=== PATIENT | male | born 1950 | race Caucasian/White ===

== ENCOUNTER 2017-11-12 15:30 | Outpatient (RCR) | payer MEDICARE, BC, SELFPAY ==
--- NOTE | 2017-10-16 16:31 | PTTR_ITS ---
DATE: 10/16/17 SUBJECTIVE: Pt reports that he feels more off balance today and feels he is leaning to the right. OBJECTIVE: Therapeutic procedures (10624o7). * X Provided skilled instruction in proper exercise performance: Pt completed dynamic balance activities with CGAx1, functional sit to stands, wobble board, LE strengthening, glute strengthening, and cardio on the Nu Step. Pt was able to tolerate a slight increase in his program today. Pt was noticeably more off balance today and was leaning more to the right during his session. Direct treatment time: 35 Total treatment time: 45
--- NOTE | 2017-10-20 16:40 | PTTR_ITS ---
DATE: 10/20/17 SUBJECTIVE: Pt reports that he has been sitting a lot today. OBJECTIVE: Therapeutic procedures (01982b5). * X Provided skilled instruction in proper exercise performance: Pt completed dynamic balance activities with CGAx1/min assist x1. Pt then completed open and closed chain LE strengthening, functional sit to stands with the 9# bar, step ups, wobble board, and Nu Step for 10 min for cardio. Pt was able to tolerate a slight increase in his program today. Direct treatment time: 35 Total treatment time: 35
--- NOTE | 2017-10-23 16:34 | PTTR_ITS ---
DATE: 10/23/17 SUBJECTIVE: I am doing okay for the most part. OBJECTIVE: Therapeutic procedures ([id number]). * X HEP review: Technique review and corrective demonstration * X See flow sheet: Added back in rolling techniques, rowing with side step overs, and half knee biceps curls. * X Provided skilled instruction in proper exercise performance: [] * X Provided skilled manual cues to facilitate proper muscle recruitment and/ or movement pattern: [] * X Other: Patient focusing on stabilization and balance effort today. He required significant Direct treatment time: 50 minutes of direct patient care.
--- NOTE | 2017-10-29 16:55 | PTTR_ITS ---
DATE: 10/29/17 SUBJECTIVE: I am sorry I am late but I was held up at the Doctor. OBJECTIVE: Therapeutic procedures (65602o5). * X HEP review: Technique review and corrective modification where appropriate. * X See flow sheet: Completed all activities from a shortened list due to time. * X Provided skilled instruction in proper exercise performance: [] * X Provided skilled manual cues to facilitate proper muscle recruitment and/ or movement pattern: [] * X Other: Patient tolerated treatment well Direct treatment time: 30 minutes of direct patient care.
--- NOTE | 2017-11-04 16:47 | PN_ITS ---
DATE: 11/04/17 REFERRING: Tiara Pollock NP REFERRING PROVIDER DIAGNOSIS:: S/p back surgery PHYSICAL THERAPY DIAGNOSIS: Difficulty walking, Difficulty changing positions of the body. REPORTING PERIOD (for progress note and discharge note only): 09/22/17 thru SUBJECTIVE: I am doing okay for the most part. OBJECTIVE: Treatment: Therapeutic procedures ([id number]). * X HEP review: Technique review and corrective modification where appropriate * X See flow sheet: Patient completed randomized corrective activity with instruction * X Provided skilled instruction in proper exercise performance: [] * X Provided skilled manual cues to facilitate proper muscle recruitment and/ or movement pattern: [] * X Other: Tolerated treatment well. Treatment time: 45 minutes of direct patient care. ASSESSMENT: X Patient requires continued skilled Physical Therapy intervention to remediate the above functional limitations to return to: * X Premorbid level of function. * X Full functional mobility. * X Return to work demands. * XImprove quality of life. G-Codes (add modifier after appropriate code): Patient's primary functional limitation is in the category of: * [] Mobility - walking and moving around : [id number] Present status determined by (SM or other justification): Improved fitness as measured by 45 minute activity tolerance with corrective instruction and minimal rest intervals. Projected goal: * X Expected to return to premorbid level of function. * X As expected, based on age-related deficits. * X Secondary to comorbidities. [id number] Goal progression: (copy/paste from IE or last PN). 1. Patient able to walk 1500 feet by 6MWT, Goal not met but progressing. 2. Patient able to perform 30 sit to stands before fatigue. Patient is tolerating up to 2 sets of 10 repetitions with 9# bar shoulder press for multisegmental movement. Goal not met but progressing. PLAN: Patient to continue treatment, 2x per week, for 5 weeks, adjusting frequency of visits per patient symptoms and response to treatment. Treatment to include: * X Manual therapy - [id number][] (indicate any further detail here): [] * X Therapeutic exercise - 60020Y-[]. * X Neuro Re-ed - 23210J-[]. Thank you for you continued support of this patient! cc. Tiara Pollock NP
--- NOTE | 2017-11-06 16:00 | PTTR_ITS ---
DATE: 11/10/17 Therapeutic procedures ([id number]). Today's session consisted of NuStep for some cardiovascular exercise. He then completed balance activities per flow sheet as well as UE/LE strengthening recorded on flow sheet. The patient also worked on rolling on the alexi for 5 mins, working on lunges. He was somewhat fatigued and I did require Min A for loss of balance a couple times throughout his program, mostly with lunges and holding onto the 30# side stepping. Direct treatment time: 30 mins Total treatment time: 45 mins for unskilled care for NuStep activity /dl
--- NOTE | 2017-11-10 11:26 | PTTR_ITS ---
DATE: 11/10/17 OBJECTIVE: Therapeutic procedures (97630o3). Todays session consisted of pt completing LE strengthening activities, glute strengthening, working on lowering as well as lunges and cardiovascular exercise. Completing step ups for 1 minutes and then the Nustep. Please see flow sheet for specifics. PT also completed heel toe balance activities. Direct treatment time: 35 minutes Total treatment time: 45 minutes
--- NOTE | 2017-11-12 16:42 | PTTR_ITS ---
DATE: 11/12/17 SUBJECTIVE: I am doing okay for the most part. Making gradual improvement. OBJECTIVE: Therapeutic procedures (11900e3). * X HEP review: TEchnique review and corrective modification where appropriate. * X See flow sheet: [] * X Provided skilled instruction in proper exercise performance: [] * X Provided skilled manual cues to facilitate proper muscle recruitment and/ or movement pattern: [] * X Other: Patient notably fatigued at the end of the treatment session. He completed a combination of guided exercises for strength, stabilization, and proprioceptive control. Direct treatment time: 40 minutes of direct patient care.
== END 2017-11-14 23:59 | disposition home or self-care (01) ==
LOC: PT 15:30
PROVIDERS: PCP Nurse Practitioner Family; Referring Provider Nurse Practitioner; Visit Provider Nurse Practitioner
DX: Z47.89 Encounter for other orthopedic aftercare (principal); Z98.1 Arthrodesis status
CPT/HCPCS: 97110; G8978

== ENCOUNTER 2018-01-01 16:15 | Outpatient (CLI) | payer MEDICARE, BC, SELFPAY ==
[2018-01-01 17:50] LABS: ALT 40 U/L (12-78); AST 34 U/L (15-37); Albumin 3.9 g/dL (3.4-5.0); Alkaline Phosphatase 113 U/L (46-116); Anion Gap 8.5 mmol/L (3-11); BUN 21 mg/dL (7-18); Bilirubin, Total 0.3 mg/dL (0.2-1.0); CO2 27.5 mmol/L (21.0-32.0); CREATININE 1.42 mg/dL (0.70-1.30); Chloride 102 mmol/L (98-107); Estimated GFR 49.58 (mL/min/1.73m2); Glucose 340 mg/dL (70-100); Potassium 5.2 mmol/L (3.5-5.1); Sodium 138 mmol/L (136-145); Total Protein 7.4 g/dL (6.4-8.2)
== END 2018-01-01 16:35 ==
PROVIDERS: PCP Nurse Practitioner Family; Visit Provider Nurse Practitioner Family
DX: E11.8 Type 2 diabetes mellitus with unspecified complications (principal); Z79.4 Long term (current) use of insulin
CPT/HCPCS: 36415; 80053

== ENCOUNTER 2018-03-24 10:36 | Outpatient (REF) | payer MEDICARE, BC, SELFPAY | END 2018-03-24 10:56 | LOC: LBN 10:36 | PROVIDERS: PCP Nurse Practitioner Family; Visit Provider Family Medicine | DX: K11.21 Acute sialoadenitis (principal) | CPT/HCPCS: 87449 ==

== ENCOUNTER 2018-03-30 12:49 | Outpatient (CLI) | payer MEDICARE, BC, SELFPAY ==
[2018-03-30 13:23] LABS: HCT 21.4 % (40.0-50.0); HGB 7.3 g/dL (13.5-17.5); Mean Corp. HGB Concentration 34.1 g/dL (32.0-36.0); Mean Corpuscular Hemoglobin 34.9 pg (27.0-33.0); Mean Corpuscular Volume 102.4 fL (80-95); Mean Platelet Volume 9.1 fL (8.0-11.0); Platelet Count 123 x1000/uL (130-400); RBC 2.09 m/cumm (4.50-6.00); RBC Distribution Width 19.5 % (11.8-14.1)
--- NOTE | 2018-03-30 13:35 | DI.RAD_ITS ---
SYMPTOM/DIAGNOSIS: COUGH AND WEAKNESS, R05 PA AND LATERAL CHEST: There are no prior comparison exams. The heart is enlarged. The aorta appears normal in diameter. There are mildly increased interstitial markings throughout. No focal infiltrate, effusion or pulmonary edema is seen. IMPRESSION: Cardiomegaly and interstitial changes. No acute abnormality.
[2018-03-30 14:14] LABS: White Blood Cell Count 45.67 k/cumm (4.4-10.8)
[2018-03-30 14:20] LABS: Absolute Lymphocyte Count 2.74 k/cumm (1.2-3.4); Absolute Monocyte Count 9.59 k/cumm (0.11-0.7); Absolute Neutrophil Count 1.37 k/cumm (1.2-6.7)
[2018-03-30 14:22] LABS: Diff Comment Manual Differential; Other Cells 70
[2018-03-30 14:23] LABS: Macrocytosis 1+
[2018-04-01 16:28] LABS: Index Value 0.13 (0.00-0.79); Mumps Ab, IgG Negative; Mumps Ab, IgM Negative (Negative)
== END 2018-03-30 13:09 ==
PROVIDERS: PCP Nurse Practitioner Family; Visit Provider Family Medicine
DX: R05 Cough (principal); K11.21 Acute sialoadenitis; I51.7 Cardiomegaly; R91.8 Other nonspecific abnormal finding of lung field
CPT/HCPCS: 36415; 83735; 86735; 71046; 85025

== ENCOUNTER 2018-05-24 13:25 | Emergency (ER) | payer MEDICARE, BC, SELFPAY ==
[2018-05-24] VITALS (56 sets, daily range): BP systolic 161–190; BP diastolic 63–97; PULSE 57–79; RESP 9–35; TEMP 36.6–36.9; O2SAT 92–100
--- NOTE | 2018-05-24 14:19 | DI.CT_ITS ---
SYMPTOM/DIAGNOSIS: INTERMITTENT VERTIGO NONCONTRAST HEAD CT: Comparison is made with 03/21/13. There is mild global cerebral atrophy consistent with the patient's age. There are areas of decreased attenuation in the white matter consistent with small vessel ischemic disease. No acute infarct, hemorrhage, midline shift or mass effect is identified. The ventricles are intact. The basilar cisterns are patent. The visualized paranasal sinuses are clear. The mastoid air cells are well pneumatized. The calvarium is intact. IMPRESSION: No acute intracranial process.
--- NOTE | 2018-05-24 14:19 | W.ED.GENAD ---
Discharge Plan Disposition Patient Disposition: [facility] Condition: Serious Discharge Details Chief Complaint: Dizzy/Sync Clinical Impression: Vertigo, Hypomagnesemia Reason For Visit: TONY Primary Care Provider: Sapna Ornelas ED Provider: Camden Peterson Home Meds and New Rx's Prescriptions: No Action triamcinolone acetonide 0.1 % ointment 1 applic TP BID Qty: 30 RF: 0 Aquaphor Healing 41 % ointment 1 applic TP Q8H Qty: 99 RF: 1 sertraline 100 mg tablet 100 mg PO DAILY RF: 0 metoprolol succinate 100 mg tablet extended release 24 hr 200 mg PO DAILY RF: 0 aspirin [Aspir-81] 81 MG tablet,delayed release (DR/EC) 81 mg PO DAILY RF: 0 mometasone 45 GM cream 1 bruno Topical PRN PRNQty: 45 RF: 0 cholecalciferol (vitamin D3) 1,000 UNIT tablet 1,000 unit PO BID RF: 0 naproxen sodium [Aleve] 220 MG capsule 220 mg PO Q12H PRN RF: 0 loperamide 2 MG tablet 2 mg PO QID PRNQty: 30 RF: 1 cyanocobalamin (vitamin B-12) 1,000 MCG/1 ML solution 1,000 mcg IJ 4w Qty: 3 RF: 3 omeprazole 40 MG capsule,delayed release(DR/EC) 40 mg PO DAILY Qty: 90 RF: 3 probenecid 500 MG tablet 500 mg PO BID Qty: 180 RF: 3 lisinopril 40 MG tablet 40 mg PO DAILY Qty: 90 RF: 3 furosemide 20 mg tablet 10 mg PO DAILY AM Qty: 90 RF: 3 acyclovir 400 mg tablet 400 mg PO BID RF: 0 Levemir FlexTouch U-100 Insuln 100 unit/mL (3 mL) insulin pen See Patient Comments Sub-Q DIRECTED RF: 3 pen needle, diabetic [Lite Touch Insulin Pen [place]] 31 gauge x 3/16 needle .ROUTE .MEDSUPPLY Qty: 30 RF: 0 atorvastatin 10 mg tablet 10 mg PO QHS RF: 0 ascorbic acid (vitamin C) [Vitamin C] 1,000 mg tablet extended release 1,000 mg PO BID RF: 0 enoxaparin 120 mg/0.8 mL syringe 120 mg SC HS RF: 0 Humalog KwikPen Insulin 100 unit/mL insulin pen See Rx Instructions SC AC Qty: 15 RF: 0 Eliquis 5 mg tablet 5 mg PO BID RF: 0 lancets [FreeStyle Lancets] 28 gauge misc 1 ea Miscellaneous TID Qty: 400 RF: 3 FreeStyle Lite Strips strip 1 ea Miscellaneous TID Qty: 400 RF: 3 gabapentin 300 mg Capsule 900 mg PO .QHS RF: 0 gabapentin 300 mg Capsule 300 mg PO DAILY RF: 0 Discharge Data Discharge Date/Time-TO BE ENTERED AT DEPARTURE: 05/24/18 20:17 Medical Decision Making 15:00 --59-year-old male with history of leukemia, recent cardiac arrest while receiving chemotherapy, here with intermittent vertigo while lying at rest since early this morning. Patient has had multiple, brief, severe episodes of room spinning vertigo today. I am concerned given the intermittent nature of these and the fact that they are occurring while lying flat at rest. CT reviewed and interpreted by me: Sinus rhythm 64 bpm, occasional ventricular beat, T wave inversion noted in lead III, subtle ST depressions are appreciated lead I, aVL, V5 and V6. No old in system for comparison. Given intermittentand not currently having constant vertigo unfortunately HINTS exam not helpful. CT head interpreted by radiology as negative. Plan to speak with neurology at [facility] [place] transfer [place]. Called [facility] [place] call back[place] -- recieved a call from [facility] [place] noting that Dr. Canela would be calling shortly. 16:25 -- Reviewed call back from [facility] [place] Canela (neurology) and discussed care presentation and diagnostics: she agrees to accept in transfer. Not able to accept in transfer. -- Spoke with Dr. Iqbal (neuro at [facility]), discussed ED presentation and course including diagnostic results and my concerns, he requests CTA head and neck and if neg for occlusion, he will accept for MRI and further workup. 19:08 --CTA of the head and neck interpreted by radiology: IMPRESSION: 1. Mild segmental stenosis at the proximal left internal carotid artery by NASCET criteria. 2. Subacute bilateral anterior second and third rib fractures with some callus formation. IMPRESSION: Negative CTA Head exam. I spoke with ED physician at [facility] who agrees with transfer. Patient reassessed and is remained stable. Patient consents to transfer. --Patient hypertensive prior to transfer. He is due for his nighttime dose of metoprolol 200 mg controlled release. I will provide this prior to transfer. HPI General Mode of arrival: ambulatory. Date/Time Provider Initiated Documentation: 05/24/18 13:52. Limitations to Documentation: no limitations. Information obtained by: patient. HPI Narrative: 67-year-old male with multiple medical problems including leukemia status post recent chemo with plan for additional chemo, recent cardiac arrest last month while hospitalized receiving chemotherapy, presents with chief complaint of dizziness. Patient notes that around 2 AM this morning he developed sudden onset of spinning sensation while at rest. This occurred twice. Since initial episode he has had multiple additional episodes (approximately 8 times in total). These episodes last 1-2 minutes and then resolved. His sensation of lateral spinning and then intermittently a sinking feeling. Symptoms are severe at times. More recently they have been less severe. He also notes associated mild frontal headache now rated 1/10. No associated weakness or numbness. No visual changes. No speech changes. Related Data Home Medications Medication Instructions Recorded Confirmed aspirin [Aspir-81] 81 mg PO DAILY tab 11/13/12 05/24/18 cholecalciferol (vitamin D3) 1,000 unit PO BID 11/13/12 05/24/18 mometasone 1 bruno TOPICAL PRN PRN #45 gm 11/13/12 05/24/18 naproxen sodium [Aleve] 220 mg PO Q12H PRN 09/23/14 05/24/18 loperamide 2 mg PO QID PRN #30 tab-cap 07/21/15 05/24/18 cyanocobalamin (vitamin B-12) 1,000 mcg IJ 4w #3 vial 12/31/16 05/24/18 omeprazole 40 mg PO DAILY #90 tab-cap 11/10/17 05/24/18 probenecid 500 mg PO BID #180 tab-cap 11/10/17 05/24/18 lisinopril 40 mg PO DAILY #90 tab-cap 11/13/17 05/24/18 triamcinolone acetonide 0.1 % 1 applic TP BID #30 gm 11/28/17 05/24/18 topical ointment white petrolatum 41 % topical 1 applic TP Q8H #99 gm 11/28/17 05/24/18 ointment furosemide 20 mg tablet 10 mg PO DAILY AM #90 tab-cap 01/02/18 05/24/18 acyclovir 400 mg tablet 400 mg PO BID tab 05/11/18 05/24/18 ascorbic acid (vitamin C) ER 1,000 1,000 mg PO BID tab 05/11/18 05/24/18 mg tablet,extended release atorvastatin 10 mg tablet 10 mg PO QHS 05/11/18 05/24/18 insulin detemir (U-100) 100 See Rx Instructions SUB-Q 05/11/18 05/24/18 unit/mL (3 mL) subcutaneous pen DIRECTED ml pen needle, diabetic 31 gauge x #30 each 05/11/18 05/15/1805/30 enoxaparin 120 mg/0.8 mL 120 mg SC HS ml 05/15/18 05/24/18 subcutaneous syringe insulin lispro (U- 100) 100 See Rx Instructions SC AC #15 ml 05/15/18 05/24/18 unit/mL subcutaneous pen metoprolol succinate ER 100 mg 200 mg PO DAILY tab 05/15/18 05/24/18 tablet,extended release 24 hr sertraline 100 mg tablet 100 mg PO DAILY 05/15/18 05/24/18 apixaban 5 mg tablet 5 mg PO BID 05/18/18 05/24/18 gabapentin 300 mg PO DAILY 05/24/18 05/24/18 gabapentin 900 mg PO .QHS 05/24/18 05/24/18 blood sugar diagnostic strips #400 strip 05/25/18 lancets 28 gauge #400 each 05/25/18 Previous Rx's Medication Instructions Recorded cyanocobalamin (vitamin B-12) 1,000 mcg IJ 4w #3 vial 12/31/16 omeprazole 40 mg PO DAILY #90 tab-cap 11/10/17 probenecid 500 mg PO BID #180 tab-cap 11/10/17 lisinopril 40 mg PO DAILY #90 tab-cap 11/13/17 triamcinolone acetonide 0.1 % 1 applic TP BID #30 gm 11/28/17 topical ointment white petrolatum 41 % topical 1 applic TP Q8H #99 gm 11/28/17 ointment furosemide 20 mg tablet 10 mg PO DAILY AM #90 tab-cap 01/02/18 insulin lispro (U- 100) 100 See Rx Instructions SC AC #15 ml 05/15/18 unit/mL subcutaneous pen blood sugar diagnostic strips #400 strip 05/25/18 lancets 28 gauge #400 each 05/25/18 Allergies Allergy/AdvReac Type Severity Reaction Status Date / Time oxycodone HCl [From Percocet] Allergy Intermediate hives Verified 05/24/18 19:16 sulfamethoxazole Allergy Intermediate hives Verified 05/24/18 19:16 [From Bactrim] trimethoprim [From Bactrim] Allergy Intermediate hives Verified 05/24/18 19:16 hydromorphone HCl Allergy Unknown rash Verified 05/24/18 19:16 [From Dilaudid] amoxicillin trihydrate AdvReac Intermediate C diff Verified 05/24/18 19:16 [From Augmentin] colitis codeine AdvReac Intermediate heart Verified 05/24/18 19:16 racing, N,V potassium clavulanate AdvReac Intermediate C diff Verified 05/24/18 19:16 [From Augmentin] colitis amiloride AdvReac Unknown increased Verified 05/24/18 19:16 K and decreased NA General Stated Complaint: Dizzy/Sync WES: 3 Review of Systems Review of Systems All systems reviewed & are unremarkable except as noted in HPI and below Cardiovascular Denies chest pain Neurologic Reports as per HPI PFSH Medical History Type 2 diabetes mellitus with complication, with long-term current use of insulin (Chronic) Spinal stenosis of lumbar region (Chronic 11/13/12) Sensorineural hearing loss, asymmetrical (Chronic 11/13/12) Mixed anxiety and depressive disorder (Chronic 11/13/12) Mitral valve insufficiency (Chronic 01/15/16) Microalbuminuria (Chronic 09/23/14) Idiopathic gout (Chronic 12/16/14) Hyperlipidemia (Chronic 11/13/12) Gait abnormality (Chronic 11/13/12) Essential hypertension (Chronic 11/13/12) Disorder of vitamin B12 (Chronic 01/14/13) Disease related peripheral neuropathy (Chronic 01/14/13) Cervical spinal stenosis (Chronic 02/08/15) Cervical radiculopathy (Chronic 01/27/15) Benign neoplasm of colon (Inactive 04/04/14) HTN (hypertension) Spinal stenosis Type 2 diabetes mellitus Surgical History H/O arthrodesis (Acute 02/15/15) H/O laminectomy (Acute Unknown) H/O vein stripping (Acute ~07/2006) S/P ACL repair (Acute ~02/1992) Anterior Lumbar interbody fusion (07/16/17) Colonoscopy - IV Sedation (04/04/14) Family History Mother Dementia Father Heart disease Gout Tongue cancer Grandmother Heart disease Other Diabetes Rheumatoid arthritis Social History Smoking/Tobacco Use Status: Never Alcohol Intake: current Alcohol Intake frequency: 0-2 drinks per day Drug use: Never Substance use type: does not use Adopted: No Pets and animals: No Seatbelt use: always Working smoke detector in home: Yes Carbon monox detector in home: Yes Exam Const General: cooperative and no acute distress HENMT Head: normocephalic and atraumatic Ears: external ears normal and TM's normal bilaterally Mouth: moist mucous membranes Throat: posterior oropharynx normal Eyes Conjunctivae: normal conjunctivae Sclera: normal sclerae EOM: EOM intact bilaterally Neck Neck: trachea midline and supple Resp Auscultation: clear to auscultation bilaterally, no rales, no rhonchi and no wheezes Cardio Jugular venous pressure: no JVD Rate: regular rate and not tachycardic Rhythm: regular rhythm GI Palpation: soft, not firm, no guarding, no masses, not rigid and nontender Skin General skin exam: no rashes or lesions noted Neuro General: alert, awake, oriented x3 and tone normal Cranial Nerves: CN's II-XI intact bilaterally and PERRL Cognition: normal cognition Speech: speech normal Gait: normal gait Motor: muscle tone normal throughout and strength 5/5 throughout Sensory Exam: no sensory deficits noted Coordination: [id number] test normal, Romberg test normal and rapid alternating movement UE normal Extrem General: no edema Psych Appearance: grossly normal Mental Status: mental status grossly normal Speech and Movement: speech and movement normal Course Vital Signs Respiratory Rate 15 05/24/18 13:25 Pulse Oximetry 100 05/24/18 13:25 Temperature 36.6 C 05/24/18 13:29 Temperature Source Temporal Artery Scan 05/24/18 14:02 Pulse 68 03/10/19 14:02 Pulse 69 05/24/18 13:50 Respiratory Rate 24 05/24/18 14:02 Respiratory Effort Non-Labored 05/24/18 13:41 Blood Pressure 172/90 H 05/24/18 14:02 Blood Pressure Mean 111 05/24/18 13:46 Blood Pressure Position Supine 05/24/18 13:29 Pulse Oximetry 94 L 05/24/18 14:02 Oxygen Delivery Method Room Air 05/24/18 14:02 Oxygen Flow Rate 0 05/24/18 14:02 Pain Level 0 05/24/18 13:29
[2018-05-24 14:39] LABS: Abs Immature Grans 0.03 k/cumm (0.0-0.09); Absolute Basophil Count 0.02 k/cumm (0.0-0.2); Absolute Eosinophil Count 0.04 k/cumm (0.0-0.7); Absolute Lymphocyte Count 1.11 k/cumm (1.2-3.4); Absolute Monocyte Count 0.65 k/cumm (0.11-0.7); Absolute Neutrophil Count 2.99 k/cumm (1.2-6.7); Basophils % 0.4; Eosinophils % 0.8; HCT 32.6 % (40.0-50.0); Immature Grans % 0.6; Lymphocytes % 22.9; Mean Corp. HGB Concentration 33.7 g/dL (32.0-36.0); Mean Corpuscular Volume 91.8 fL (80-95); Monocytes % 13.4; Neutrophils % 61.9; Platelet Count 444 x1000/uL (130-400); RBC 3.55 m/cumm (4.50-6.00); RBC Distribution Width 17.8 % (11.8-14.1); White Blood Cell Count 4.84 k/cumm (4.4-10.8)
[2018-05-24 14:49] LABS: Prothrombin Time 10.1 sec (9.3-11.0)
--- NOTE | 2018-05-24 14:51 | DI.VRAD_ITS ---
Addendum created by Nina Garcia MD on 05/24/2018 2:53:33 PM EDT Findings were discussed with Camden Pepe on 05/24/2018 2:53 PM EDT Initial report created on 05/24/2018 2:50:57 PM EDT EXAM: CT Head Without Contrast EXAM DATE/TIME: 05/24/2018 2:20 PM CLINICAL HISTORY: 67 years old, male; Signs and symptoms; Other: Intermittent vertigo TECHNIQUE: Axial computed tomography images of the head/brain without contrast. All CT scans at this facility use at least one of these dose optimization techniques: automated exposure control; mA and/or kV adjustment per patient size (includes targeted exams where dose is matched to clinical indication); or iterative reconstruction. Coronal and sagittal reformatted images were created and reviewed. STROKE PROTOCOL was implemented. COMPARISON: CT HEAD AND CSPINE W/O CONTRAST 03/21/2013 8:54 AM FINDINGS: Brain: Central and cortical brain atrophy evident, appropriate for patient age. There is nonspecific periventricular low attenuation, likely microangiopathic disease. No acute intracranial hemorrhage. Ventricles: Normal. No ventriculomegaly. Bones/joints: Unremarkable. No acute fracture. Sinuses: Visualized sinuses are unremarkable. No acute sinusitis. Mastoid air cells: Visualized mastoid air cells are unremarkable. No mastoid effusion. Soft tissues: Unremarkable. IMPRESSION: No acute intracranial abnormality. ASSESSMENT: ASPECTS ([facility] Stroke Program Early CT Score) is 10. Dictated and Authenticated by: Nina Garcia MD. Ordering:NAINA Hannah MD
[2018-05-24 14:54] LABS: ALT 32 U/L (12-78); AST 20 U/L (15-37); Albumin 3.5 g/dL (3.4-5.0); Alkaline Phosphatase 185 U/L (46-116); Anion Gap 6.3 mmol/L (3-11); BUN 12 mg/dL (7-18); Bilirubin, Total 0.4 mg/dL (0.2-1.0); CO2 31.7 mmol/L (21.0-32.0); CREATININE 1.04 mg/dL (0.70-1.30); Calcium 9.2 mg/dL (8.5-10.1); Chloride 101 mmol/L (98-107); Glucose 145 mg/dL (70-100); Magnesium 1.5 mg/dL (1.8-2.4); Potassium 3.8 mmol/L (3.5-5.1); Sodium 139 mmol/L (136-145); Total Protein 7.9 g/dL (6.4-8.2); Troponin I 0.03 ng/mL (0.00-0.06)
--- NOTE | 2018-05-24 14:56 | NUR.NOTE ---
Nursing Note: Pt awake and alert. a&o. reports waves of occasional dizziness where room is spinning. no symptoms at this time. perrla. moving all extremities. NSR on cardiac monitoring. hypertensive 172/90. skin warm and dry. no n/v/d or diaphoresis. call light in reach. will continue to monitor, no further needs at this time.
--- NOTE | 2018-05-24 15:00 | ED.GENADUL_ITS ---
Discharge Plan Disposition Patient Disposition: [facility] Condition: Serious Discharge Details Chief Complaint: Dizzy/Sync Clinical Impression: Vertigo, Hypomagnesemia Reason For Visit: TONY Primary Care Provider: Sapna Ornelas ED Provider: Camedn Peterson Home Meds and New Rx's Prescriptions: No Action triamcinolone acetonide 0.1 % ointment 1 applic TP BID Qty: 30 RF: 0 Aquaphor Healing 41 % ointment 1 applic TP Q8H Qty: 99 RF: 1 sertraline 100 mg tablet 100 mg PO DAILY RF: 0 metoprolol succinate 100 mg tablet extended release 24 hr 200 mg PO DAILY RF: 0 aspirin [Aspir-81] 81 MG tablet,delayed release (DR/EC) 81 mg PO DAILY RF: 0 mometasone 45 GM cream 1 bruno Topical PRN PRNQty: 45 RF: 0 cholecalciferol (vitamin D3) 1,000 UNIT tablet 1,000 unit PO BID RF: 0 naproxen sodium [Aleve] 220 MG capsule 220 mg PO Q12H PRN RF: 0 loperamide 2 MG tablet 2 mg PO QID PRNQty: 30 RF: 1 cyanocobalamin (vitamin B-12) 1,000 MCG/1 ML solution 1,000 mcg IJ 4w Qty: 3 RF: 3 omeprazole 40 MG capsule,delayed release(DR/EC) 40 mg PO DAILY Qty: 90 RF: 3 probenecid 500 MG tablet 500 mg PO BID Qty: 180 RF: 3 lisinopril 40 MG tablet 40 mg PO DAILY Qty: 90 RF: 3 furosemide 20 mg tablet 10 mg PO DAILY AM Qty: 90 RF: 3 acyclovir 400 mg tablet 400 mg PO BID RF: 0 Levemir FlexTouch U-100 Insuln 100 unit/mL (3 mL) insulin pen See Patient Comments Sub-Q DIRECTED RF: 3 pen needle, diabetic [Lite Touch Insulin Pen [place]] 31 gauge x 3/16 needle .ROUTE .MEDSUPPLY Qty: 30 RF: 0 atorvastatin 10 mg tablet 10 mg PO QHS RF: 0 ascorbic acid (vitamin C) [Vitamin C] 1,000 mg tablet extended release 1,000 mg PO BID RF: 0 enoxaparin 120 mg/0.8 mL syringe 120 mg SC HS RF: 0 Humalog KwikPen Insulin 100 unit/mL insulin pen See Rx Instructions SC AC Qty: 15 RF: 0 Eliquis 5 mg tablet 5 mg PO BID RF: 0 lancets [FreeStyle Lancets] 28 gauge misc 1 ea Miscellaneous TID Qty: 400 RF: 3 FreeStyle Lite Strips strip 1 ea Miscellaneous TID Qty: 400 RF: 3 gabapentin 300 mg Capsule 900 mg PO .QHS RF: 0 gabapentin 300 mg Capsule 300 mg PO DAILY RF: 0 Discharge Data Discharge Date/Time-TO BE ENTERED AT DEPARTURE: 05/24/18 20:17 Medical Decision Making 15:00 --59-year-old male with history of leukemia, recent cardiac arrest while receiving chemotherapy, here with intermittent vertigo while lying at rest since early this morning. Patient has had multiple, brief, severe episodes of room spinning vertigo today. I am concerned given the intermittent nature of these and the fact that they are occurring while lying flat at rest. CT reviewed and interpreted by me: Sinus rhythm 64 bpm, occasional ventricular beat, T wave inversion noted in lead III, subtle ST depressions are appreciated lead I, aVL, V5 and V6. No old in system for comparison. Given intermittentand not currently having constant vertigo unfortunately HINTS exam not helpful. CT head interpreted by radiology as negative. Plan to speak with neurology at [facility] to request transfer for MRI. Called [facility] - awaiting call back. -- recieved a call from [facility] transfer center noting that Dr. Canela would be calling shortly. 16:25 -- Reviewed call back from [facility] Dr. Canela (neurology) and discussed care presentation and diagnostics: she agrees to accept in transfer. Not able to accept in transfer. -- Spoke with Dr. Iqbal (neuro at [facility]), discussed ED presentation and course including diagnostic results and my concerns, he requests CTA head and neck and if neg for occlusion, he will accept for MRI and further workup. 19:08 --CTA of the head and neck interpreted by radiology: IMPRESSION: 1. Mild segmental stenosis at the proximal left internal carotid artery by NASCET criteria. 2. Subacute bilateral anterior second and third rib fractures with some callus formation. IMPRESSION: Negative CTA Head exam. I spoke with ED physician at [facility] who agrees with transfer. Patient reassessed and is remained stable. Patient consents to transfer. --Patient hypertensive prior to transfer. He is due for his nighttime dose of metoprolol 200 mg controlled release. I will provide this prior to transfer. HPI General Mode of arrival: ambulatory . Date/Time Provider Initiated Documentation: 05/24/18 13:52 . Limitations to Documentation: no limitations . Information obtained by: patient . HPI Narrative: 67-year-old male with multiple medical problems including leukemia status post recent chemo with plan for additional chemo, recent cardiac arrest last month while hospitalized receiving chemotherapy, presents with chief complaint of dizziness. Patient notes that around 2 AM this morning he developed sudden onset of spinning sensation while at rest. This occurred twice. Since initial episode he has had multiple additional episodes (approximately 8 times in total). These episodes last 1-2 minutes and then resolved. His sensation of lateral spinning and then intermittently a sinking feeling. Symptoms are severe at times. More recently they have been less severe. He also notes associated mild frontal headache now rated 1/10. No associated weakness or numbness. No visual changes. No speech changes. Related Data Home Medications Medication Instructions Recorded Confirmed aspirin [Aspir-81] 81 mg PO DAILY tab 11/13/12 05/24/18 cholecalciferol (vitamin D3) 1,000 unit PO BID 11/13/12 05/24/18 mometasone 1 bruno TOPICAL PRN PRN #45 gm 11/13/12 05/24/18 naproxen sodium [Aleve] 220 mg PO Q12H PRN 09/23/14 05/24/18 loperamide 2 mg PO QID PRN #30 tab-cap 07/21/15 05/24/18 cyanocobalamin (vitamin B-12) 1,000 mcg IJ 4w #3 vial 12/31/16 05/24/18 omeprazole 40 mg PO DAILY #90 tab-cap 11/10/17 05/24/18 probenecid 500 mg PO BID #180 tab-cap 11/10/17 05/24/18 lisinopril 40 mg PO DAILY #90 tab-cap 11/13/17 05/24/18 triamcinolone acetonide 0.1 % 1 applic TP BID #30 gm 11/28/17 05/24/18 topical ointment white petrolatum 41 % topical 1 applic TP Q8H #99 gm 11/28/17 05/24/18 ointment furosemide 20 mg tablet 10 mg PO DAILY AM #90 tab-cap 01/02/18 05/24/18 acyclovir 400 mg tablet 400 mg PO BID tab 05/11/18 05/24/18 ascorbic acid (vitamin C) ER 1,000 1,000 mg PO BID tab 05/11/18 05/24/18 mg tablet,extended release atorvastatin 10 mg tablet 10 mg PO QHS 05/11/18 05/24/18 insulin detemir (U-100) 100 See Rx Instructions SUB-Q 05/11/18 05/24/18 unit/mL (3 mL) subcutaneous pen DIRECTED ml pen needle, diabetic 31 gauge x #30 each 05/11/18 05/15/1805/30 enoxaparin 120 mg/0.8 mL 120 mg SC HS ml 05/15/18 05/24/18 subcutaneous syringe insulin lispro (U- 100) 100 See Rx Instructions SC AC #15 ml 05/15/18 05/24/18 unit/mL subcutaneous pen metoprolol succinate ER 100 mg 200 mg PO DAILY tab 05/15/18 05/24/18 tablet,extended release 24 hr sertraline 100 mg tablet 100 mg PO DAILY 05/15/18 05/24/18 apixaban 5 mg tablet 5 mg PO BID 05/18/18 05/24/18 gabapentin 300 mg PO DAILY 05/24/18 05/24/18 gabapentin 900 mg PO .QHS 05/24/18 05/24/18 blood sugar diagnostic strips #400 strip 05/25/18 lancets 28 gauge #400 each 05/25/18 Previous Rx's Medication Instructions Recorded cyanocobalamin (vitamin B-12) 1,000 mcg IJ 4w #3 vial 12/31/16 omeprazole 40 mg PO DAILY #90 tab-cap 11/10/17 probenecid 500 mg PO BID #180 tab-cap 11/10/17 lisinopril 40 mg PO DAILY #90 tab-cap 11/13/17 triamcinolone acetonide 0.1 % 1 applic TP BID #30 gm 11/28/17 topical ointment white petrolatum 41 % topical 1 applic TP Q8H #99 gm 11/28/17 ointment furosemide 20 mg tablet 10 mg PO DAILY AM #90 tab-cap 01/02/18 insulin lispro (U- 100) 100 See Rx Instructions SC AC #15 ml 05/15/18 unit/mL subcutaneous pen blood sugar diagnostic strips #400 strip 05/25/18 lancets 28 gauge #400 each 05/25/18 Allergies Allergy/AdvReac Type Severity Reaction Status Date / Time oxycodone HCl [From Percocet] Allergy Intermediate hives Verified 05/24/18 19:16 sulfamethoxazole Allergy Intermediate hives Verified 05/24/18 19:16 [From Bactrim] trimethoprim [From Bactrim] Allergy Intermediate hives Verified 05/24/18 19:16 hydromorphone HCl Allergy Unknown rash Verified 05/24/18 19:16 [From Dilaudid] amoxicillin trihydrate AdvReac Intermediate C diff Verified 05/24/18 19:16 [From Augmentin] colitis codeine AdvReac Intermediate heart Verified 05/24/18 19:16 racing, N,V potassium clavulanate AdvReac Intermediate C diff Verified 05/24/18 19:16 [From Augmentin] colitis amiloride AdvReac Unknown increased Verified 05/24/18 19:16 K and decreased NA General Stated Complaint: Dizzy/Sync WES: 3 Review of Systems Review of Systems All systems reviewed & are unremarkable except as noted in HPI and below Cardiovascular Denies chest pain Neurologic Reports as per HPI PFSH Medical History Type 2 diabetes mellitus with complication, with long-term current use of insulin (Chronic) Spinal stenosis of lumbar region (Chronic 11/13/12) Sensorineural hearing loss, asymmetrical (Chronic 11/13/12) Mixed anxiety and depressive disorder (Chronic 11/13/12) Mitral valve insufficiency (Chronic 01/15/16) Microalbuminuria (Chronic 09/23/14) Idiopathic gout (Chronic 12/16/14) Hyperlipidemia (Chronic 11/13/12) Gait abnormality (Chronic 11/13/12) Essential hypertension (Chronic 11/13/12) Disorder of vitamin B12 (Chronic 01/14/13) Disease related peripheral neuropathy (Chronic 01/14/13) Cervical spinal stenosis (Chronic 02/08/15) Cervical radiculopathy (Chronic 01/27/15) Benign neoplasm of colon (Inactive 04/04/14) HTN (hypertension) Spinal stenosis Type 2 diabetes mellitus Surgical History H/O arthrodesis (Acute 02/15/15) H/O laminectomy (Acute Unknown) H/O vein stripping (Acute ~07/2006) S/P ACL repair (Acute ~02/1992) Anterior Lumbar interbody fusion (07/16/17) Colonoscopy - IV Sedation (04/04/14) Family History Mother Dementia Father Heart disease Gout Tongue cancer Grandmother Heart disease Other Diabetes Rheumatoid arthritis Social History Smoking/Tobacco Use Status: Never Alcohol Intake: current Alcohol Intake frequency: 0-2 drinks per day Drug use: Never Substance use type: does not use Adopted: No Pets and animals: No Seatbelt use: always Working smoke detector in home: Yes Carbon monox detector in home: Yes Exam Const General: cooperative and no acute distress HENMT Head: normocephalic and atraumatic Ears: external ears normal and TM's normal bilaterally Mouth: moist mucous membranes Throat: posterior oropharynx normal Eyes Conjunctivae: normal conjunctivae Sclera: normal sclerae EOM: EOM intact bilaterally Neck Neck: trachea midline and supple Resp Auscultation: clear to auscultation bilaterally, no rales, no rhonchi and no wheezes Cardio Jugular venous pressure: no JVD Rate: regular rate and not tachycardic Rhythm: regular rhythm GI Palpation: soft, not firm, no guarding, no masses, not rigid and nontender Skin General skin exam: no rashes or lesions noted Neuro General: alert, awake, oriented x3 and tone normal Cranial Nerves: CN's II-XI intact bilaterally and PERRL Cognition: normal cognition Speech: speech normal Gait: normal gait Motor: muscle tone normal throughout and strength 5/5 throughout Sensory Exam: no sensory deficits noted Coordination: [id number] test normal, Romberg test normal and rapid alternating movement UE normal Extrem General: no edema Psych Appearance: grossly normal Mental Status: mental status grossly normal Speech and Movement: speech and movement normal Course Vital Signs Respiratory Rate 15 05/24/18 13:25 Pulse Oximetry 100 05/24/18 13:25 Temperature 36.6 C 05/24/18 13:29 Temperature Source Temporal Artery Scan 05/24/18 14:02 Pulse 68 03/10/19 14:02 Pulse 69 05/24/18 13:50 Respiratory Rate 24 05/24/18 14:02 Respiratory Effort Non-Labored 05/24/18 13:41 Blood Pressure 172/90 H 05/24/18 14:02 Blood Pressure Mean 111 05/24/18 13:46 Blood Pressure Position Supine 05/24/18 13:29 Pulse Oximetry 94 L 05/24/18 14:02 Oxygen Delivery Method Room Air 05/24/18 14:02 Oxygen Flow Rate 0 05/24/18 14:02 Pain Level 0 05/24/18 13:29
--- NOTE | 2018-05-24 15:56 | NUR.NOTE ---
Nursing Note: Report given to Laura GONZALEZ
[2018-05-24] MEDS: Lactated Ringers 1,000 ML 1000 ML IV (16:03)
[2018-05-24] MEDS: MAGNESIUM SULFATE 1 GM/100 ML BAG IVPB (16:03)
--- NOTE | 2018-05-24 17:04 | DI.CT_ITS ---
SYMPTOM/DIAGNOSIS: VERTIGO, CONCERN FOR POSTERIOR CIRCULATION CVA CTA OF HEAD AND NECK: CT angiography was performed with multi slice acquisition and multi planar and 3D reconstruction. HEAD: There is mild calcification of the cavernous sinus internal carotid arteries bilaterally but no significant stenosis. No evidence of occlusion or aneurysm. The internal cerebral arteries are unremarkable without evidence of occlusion or aneurysm. No significant stenosis is seen. The middle cerebral arteries are unremarkable without evidence of occlusion or aneurysm. No significant stenosis is seen. The posterior cerebral arteries are unremarkable without evidence of occlusion or aneurysm. No significant stenosis is present. The distal vertebral arteries and basilar artery are unremarkable without evidence of occlusion, dissection, aneurysm or significant stenosis. There is a dominant right vertebral artery. IMPRESSION: Negative CTA of the brain. NECK: The common carotid arteries are unremarkable without evidence of dissection, occlusion or significant stenosis. The external carotid arteries are unremarkable without evidence of occlusion or significant stenosis. There is calcification seen at the origin of the right internal carotid artery but no significant stenosis is seen. No occlusion or dissection is present. There is calcification along the proximal left internal carotid artery with minimal narrowing (less than 20%). No occlusion or dissection is identified. The vertebral arteries are unremarkable without evidence of dissection, occlusion or significant stenosis. The right vertebral artery is dominant. Post surgical changes are seen in the spine extending from C 3 through T 1 with laminectomies and interpedicular screws. There are bilateral subacute fractures of the anterior aspects of the second and third ribs bilaterally. There has developed some callous formation about the fractures. IMPRESSION: 1. No significant stenosis in the cervical carotid artery system. Mild stenosis is seen in the proximal left internal carotid artery (less than 20%). 2. Subacute bilateral fractures of the anterior aspects of the second and third ribs.
[2018-05-24] MEDS: Omnipaque 350 MG/ML 100 ML BTL IJ (18:04)
[2018-05-24] MEDS: Normal Saline Flush 10 ML SYR IVP (18:05)
--- NOTE | 2018-05-24 18:53 | DI.VRAD_ITS ---
EXAM: CT Angiography Head With Contrast EXAM DATE/TIME: 05/24/2018 5:06 PM CLINICAL HISTORY: 67 years old, male; Signs and symptoms; Other: Vertigo, concern for posterior circulation CVA; Prior surgery; Surgery date: 6+ months TECHNIQUE: Axial computed tomographic angiography images of the head with intravenous contrast using CT angiography protocol. All CT scans at this facility use at least one of these dose optimization techniques: automated exposure control; mA and/or kV adjustment per patient size (includes targeted exams where dose is matched to clinical indication); or iterative reconstruction. Coronal reformatted images were created and reviewed. MIP reconstructed images were created and reviewed. CONTRAST: Contrast Material: 85 ml of omnipaque 350; Contrast Route: IV COMPARISON: CT HEAD FOR STROKE PROTOCOL 05/24/2018 1:32 PM FINDINGS: Right internal carotid artery: Unremarkable. Intracranial segment is patent with no significant stenosis. No aneurysm. Right anterior cerebral artery: Unremarkable. No occlusion or significant stenosis. No aneurysm. Right middle cerebral artery: Unremarkable. No occlusion or significant stenosis. No aneurysm. Right posterior cerebral artery: Unremarkable. No occlusion or significant stenosis. No aneurysm. Right vertebral artery: Unremarkable. No occlusion or significant stenosis. No aneurysm. Left internal carotid artery: Unremarkable. Intracranial segment is patent with no significant stenosis. No aneurysm. Left anterior cerebral artery: Unremarkable. No occlusion or significant stenosis. No aneurysm. Left middle cerebral artery: Unremarkable. No occlusion or significant stenosis. No aneurysm. Left posterior cerebral artery: Unremarkable. No occlusion or significant stenosis. No aneurysm. Left vertebral artery: Unremarkable. No occlusion or significant stenosis. No aneurysm. Basilar artery: Unremarkable. No occlusion or significant stenosis. No aneurysm. IMPRESSION: Negative CTA Head exam. EXAM: CT Angiography Neck With Contrast EXAM DATE/TIME: 05/24/2018 5:06 PM CLINICAL HISTORY: 67 years old, male; Signs and symptoms; Other: Vertigo, concern for posterior circulation CVA; Prior surgery; Surgery date: 6+ months TECHNIQUE: Axial computed tomographic angiography images of the neck with intravenous contrast using CT angiography protocol. All CT scans at this facility use at least one of these dose optimization techniques: automated exposure control; mA and/or kV adjustment per patient size (includes targeted exams where dose is matched to clinical indication); or iterative reconstruction. Coronal reformatted images were created and reviewed. MIP reconstructed images were created and reviewed. CONTRAST: Contrast Material: 85 ml of Omnipaque 350; Contrast Route: IV COMPARISON: CT HEAD FOR STROKE PROTOCOL 05/24/2018 1:32 PM FINDINGS: VASCULATURE: Right common carotid artery: Unremarkable. No significant stenosis. No dissection or occlusion. Right internal carotid artery: Mild calcifications at the origin of the right internal carotid artery without stenosis. No occlusion. No dissection. Right external carotid artery: Unremarkable. No occlusion or significant stenosis. 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 Left common carotid artery: Unremarkable. No significant stenosis. No dissection or occlusion. Left internal carotid artery: Calcification along the proximal left internal carotid artery and produces 20% segmental stenosis. No occlusion. No dissection. Left external carotid artery: Unremarkable. No occlusion or significant stenosis. Left vertebral artery: Unremarkable. No significant stenosis. No dissection or occlusion. NECK: Bones/joints: No cervical spine fracture or dislocation. Extensive postsurgical changes of the cervical spine with posterior of mechanical fusion of C3-T1 with interpedicular screws and laminectomies. Subacute bilateral anterior second and third rib fractures with some callus formation. Soft tissues: Unremarkable. No significant soft tissue swelling. IMPRESSION: 1. Mild segmental stenosis at the proximal left internal carotid artery by NASCET criteria. 2. Subacute bilateral anterior second and third rib fractures with some callus formation. COMMENT: Reference per NASCET criteria for degree of stenosis: Mild: less than 50% stenosis. Moderate: 50-69% stenosis. Severe: 70-94% stenosis. Near occlusion: 95-99% stenosis. Dictated and Authenticated by: Christina Piedra MD. Ordering:NAINA Hannah MD
--- NOTE | 2018-05-24 19:01 | NUR.NOTE ---
patient has been resting comfortably.
[2018-05-24] MEDS: Metoprolol CR 100 MG TABCR PO ×2 (20:30→20:31)
== END 2018-05-24 20:17 ==
PROVIDERS: Emergency Provider Student in an Organized Health Care Education/Training Program; PCP Nurse Practitioner Family
DX: R42 Dizziness and giddiness (principal); E83.42 Hypomagnesemia; I10 Essential (primary) hypertension; E11.9 Type 2 diabetes mellitus without complications; Z79.4 Long term (current) use of insulin
CPT/HCPCS: 36415; 36416; 70496; 70498; 80053; 82962; 93005; 96361; 96365; 99285; 70450; 83735; 84484; 85025; 85610; 93010; J3475; J3490

== ENCOUNTER 2018-06-11 12:30 | Outpatient (RCR) | payer MEDICARE, BC, SELFPAY ==
[2018-06-04] MEDS: Normal Saline Flush 10 ML SYR IVP (10:53)
[2018-06-04 10:58] LABS: Absolute Basophil Count 0.02 k/cumm (0.0-0.2); Absolute Eosinophil Count 0.01 k/cumm (0.0-0.7); Absolute Lymphocyte Count 0.23 k/cumm (1.2-3.4); Absolute Neutrophil Count 0.75 k/cumm (1.2-6.7); HCT 28.9 % (40.0-50.0); HGB 9.3 g/dL (13.5-17.5); Lymphocytes % 22.8; Mean Corp. HGB Concentration 32.2 g/dL (32.0-36.0); Mean Corpuscular Hemoglobin 30.5 pg (27.0-33.0); Mean Corpuscular Volume 94.8 fL (80-95); Mean Platelet Volume 9.3 fL (8.0-11.0); Neutrophils % 74.2; RBC 3.05 m/cumm (4.50-6.00)
[2018-06-04 11:27] LABS: White Blood Cell Count 1.01 k/cumm (4.4-10.8)
[2018-06-04 11:28] LABS: Platelet Count 214 x1000/uL (130-400)
[2018-06-04 11:29] LABS: Diff Comment Agrees w/ Instrument
[2018-06-04 11:30] LABS: Anisocytosis 2+; Hypochromasia 1+
[2018-06-08] MEDS: Normal Saline Flush 10 ML SYR IVP (10:15)
[2018-06-08 10:44] LABS: HCT 26.8 % (40.0-50.0); HGB 9.1 g/dL (13.5-17.5); Mean Corpuscular Hemoglobin 31.2 pg (27.0-33.0); Mean Corpuscular Volume 91.8 fL (80-95); Mean Platelet Volume 8.9 fL (8.0-11.0); RBC 2.92 m/cumm (4.50-6.00); RBC Distribution Width 15.6 % (11.8-14.1)
[2018-06-08 11:28] LABS: White Blood Cell Count 0.34 k/cumm (4.4-10.8)
[2018-06-08 11:29] LABS: Platelet Count 42 x1000/uL (130-400)
[2018-06-08 11:30] LABS: Absolute Lymphocyte Count 0.33 k/cumm (1.2-3.4); Absolute Neutrophil Count 0.01 k/cumm (1.2-6.7)
[2018-06-08 11:31] LABS: Anisocytosis 1+
[2018-06-08 11:32] LABS: Diff Comment Manual Differential
[2018-06-11] VITALS (10 sets, daily range): BP systolic 118–156; BP diastolic 59–72; PULSE 59–98; RESP 18; TEMP 36–36.7; O2SAT 98–100
[2018-06-11] MEDS: Normal Saline Flush 10 ML SYR IVP ×2 (10:00→17:04)
[2018-06-11 10:37] LABS: HCT 22.7 % (40.0-50.0); HGB 7.8 g/dL (13.5-17.5); Mean Corp. HGB Concentration 34.4 g/dL (32.0-36.0); Mean Corpuscular Hemoglobin 31.1 pg (27.0-33.0); Mean Corpuscular Volume 90.4 fL (80-95); RBC 2.51 m/cumm (4.50-6.00); RBC Distribution Width 15.2 % (11.8-14.1)
[2018-06-11 11:44] LABS: Platelet Count 4 x1000/uL (130-400)
== END 2018-06-14 23:59 | disposition home or self-care (01) ==
LOC: INF 12:30
PROVIDERS: PCP Nurse Practitioner Family; Visit Provider Nurse Practitioner Adult Health
DX: C92.00 Acute myeloblastic leukemia, not having achieved remission (principal); Z45.2 Encounter for adjustment and management of vascular access device
CPT/HCPCS: 36415; 36430; 36592; 85027; 86850; 86900; 86901; 86920; 85025; P9016; P9035

== ENCOUNTER 2018-06-11 12:47 | Outpatient (RCR) | payer MEDICARE, BC, SELFPAY | END 2018-06-14 23:59 | disposition home or self-care (01) | LOC: INF 12:47 | PROVIDERS: PCP Nurse Practitioner Family; Visit Provider Internal Medicine | DX: R69 Illness, unspecified (principal) ==

== ENCOUNTER 2018-06-14 12:47 | Outpatient (RCR) | payer MEDICARE, BC, SELFPAY | END 2018-06-14 23:59 | disposition home or self-care (01) | LOC: INF 12:47 | PROVIDERS: PCP Nurse Practitioner Family; Visit Provider Nurse Practitioner Adult Health | DX: R69 Illness, unspecified (principal) ==

== ENCOUNTER 2018-06-14 16:12 | Emergency (ER) | payer MEDICARE, BC, SELFPAY ==
[2018-06-14] VITALS (36 sets, daily range): BP systolic 135–182; BP diastolic 63–91; PULSE 75–84; RESP 13–21; TEMP 37.7–38.4; O2SAT 93–99
[2018-06-14 16:36] LABS: Lactate-non-spesis 1.6 mmol/l (0.6-1.4)
[2018-06-14 16:43] LABS: Absolute Lymphocyte Count 0.18 k/cumm (1.2-3.4); Absolute Monocyte Count 0.08 k/cumm (0.11-0.7); HCT 28.6 % (40.0-50.0); HGB 9.9 g/dL (13.5-17.5); Lymphocytes % 69.2; Mean Corp. HGB Concentration 34.6 g/dL (32.0-36.0); Mean Corpuscular Hemoglobin 30.4 pg (27.0-33.0); Mean Corpuscular Volume 87.7 fL (80-95); Mean Platelet Volume 10.8 fL (8.0-11.0); Monocytes % 30.8; RBC 3.26 m/cumm (4.50-6.00); RBC Distribution Width 14.3 % (11.8-14.1)
[2018-06-14] MEDS: Acetaminophen 500 MG TAB 1000 MG PO (16:49)
[2018-06-14] MEDS: Normal Saline Flush 10 ML SYR IVP (16:50)
--- NOTE | 2018-06-14 16:50 | ED.GENADUL_ITS ---
Discharge Plan Disposition Patient Disposition: [facility] Condition: Stable Discharge Details Chief Complaint: GenMedical Clinical Impression: Neutropenic fever, Pneumonia, History of acute myeloid leukemia, Status post chemotherapy Primary Care Provider: Sapna Ornelas ED Provider: Zaida Johnson Home Meds and New Rx's Prescriptions: No Action triamcinolone acetonide 0.1 % ointment 1 applic TP BID Qty: 30 RF: 0 Aquaphor Healing 41 % ointment 1 applic TP Q8H Qty: 99 RF: 1 sertraline 100 mg tablet 100 mg PO DAILY RF: 0 metoprolol succinate 100 mg tablet extended release 24 hr 200 mg PO DAILY RF: 0 aspirin [Aspir-81] 81 MG tablet,delayed release (DR/EC) 81 mg PO DAILY RF: 0 mometasone 45 GM cream 1 bruno Topical PRN PRNQty: 45 RF: 0 cholecalciferol (vitamin D3) 1,000 UNIT tablet 1,000 unit PO BID RF: 0 naproxen sodium [Aleve] 220 MG capsule 220 mg PO Q12H PRN RF: 0 loperamide 2 MG tablet 2 mg PO QID PRNQty: 30 RF: 1 cyanocobalamin (vitamin B-12) 1,000 MCG/1 ML solution 1,000 mcg IJ 4w Qty: 3 RF: 3 omeprazole 40 MG capsule,delayed release(DR/EC) 40 mg PO DAILY Qty: 90 RF: 3 probenecid 500 MG tablet 500 mg PO BID Qty: 180 RF: 3 lisinopril 40 MG tablet 40 mg PO DAILY Qty: 90 RF: 3 furosemide 20 mg tablet 10 mg PO DAILY AM Qty: 90 RF: 3 acyclovir 400 mg tablet 400 mg PO BID RF: 0 Levemir FlexTouch U-100 Insuln 100 unit/mL (3 mL) insulin pen See Patient Comments Sub-Q DIRECTED RF: 3 pen needle, diabetic [Lite Touch Insulin Pen [place]] 31 gauge x 3/16 needle .ROUTE .MEDSUPPLY Qty: 30 RF: 0 atorvastatin 10 mg tablet 10 mg PO QHS RF: 0 ascorbic acid (vitamin C) [Vitamin C] 1,000 mg tablet extended release 1,000 mg PO BID RF: 0 enoxaparin 120 mg/0.8 mL syringe 120 mg SC HS RF: 0 Humalog KwikPen Insulin 100 unit/mL insulin pen See Rx Instructions SC AC Qty: 15 RF: 0 Eliquis 5 mg tablet 5 mg PO BID RF: 0 lancets [FreeStyle Lancets] 28 gauge misc 1 ea Miscellaneous TID Qty: 400 RF: 3 FreeStyle Lite Strips strip 1 ea Miscellaneous TID Qty: 400 RF: 3 gabapentin 300 mg Capsule 900 mg PO .QHS RF: 0 gabapentin 300 mg Capsule 300 mg PO DAILY RF: 0 fluconazole 50 mg Tablet 50 mg PO DAILY RF: 0 Medical Decision Making 67-year-old male with a history of diabetes, AML, cardiac arrest due to chemotherapy who presents with fever since this morning. Also complaining of URI symptoms for the past 2-3 days. Temp 101.1. Remainder vitals within normal limits. Normal ENT exam. Lungs clear to auscultation. Abdomen soft and nontender. Due to patient's history, will place an IV, labs, urinalysis, chest x-ray, lactate and blood cultures. We will also obtain a rapid strep and influenza. Will give a dose of Tylenol and bolus IV fluids. EKG notes a rate of 79, sinus and no acute ST findings. 1714 --labs and imaging reviewed. 0.26. Hemoglobin 9.9. Platelets 11. Absolute neutrophils 0. ANC 0 indicative of severe neutropenia. Sodium 130. Glucose 433. Bicarb 26. Anion gap 11.2. Lactate 1.6. Magnesium 1. 3. Troponin negative. Lipase negative. Chest x-ray notes bilateral opacities consistent with pneumonia. Rapid strep and influenza negative. 1739 --discussed with [facility] [place] hematology Dr. Ruiz -accepts patient for transfer for neutropenic fever. Would like a dose of cefepime 2 g IV. Patient is agreeable with transfer. Patient feels better after Tylenol. Medical Records Medical records reviewed: Yes I reviewed the patient's medical records. Imaging Data Radiologic Study: Radiologist's impression: XR Chest, 2 Views EXAM DATE/TIME: 06/14/2018 4:24 PM FINDINGS: Tubes, catheters and devices: Right PICC in place with the tip at the proximal SVC. Lungs: See Pleural Space Finding. Pleural space: There is some left sided pleural based opacities. Similar opacities noted in the right midlung. Suspect healing rib fractures. Heart/Mediastinum: Cardiomegaly. Bones/joints: Status post lower cervical fusion. IMPRESSION: Bilateral lung and pleural opacities. Suspect healing rib fractures. If there is no history for trauma, consider CT followup. Lab Data Lab results reviewed: Yes I reviewed the patient's lab results. ECG Data Attestation: I personally reviewed and interpreted this ECG (s) as follows: Interpretation: Rate of 79, sinus, no acute ST elevation or depression. QTc 426. QRS 94. HPI General Mode of arrival: wheelchair . Date/Time Provider Initiated Documentation: 06/14/18 16:19 . Limitations to Documentation: no limitations . Information obtained by: patient . HPI Narrative: Patient is a 67-year-old male with a history of AML diagnosed in March 2018 with a history of cardiac arrest status post chemotherapy, diabetes, and hypertension who presents with fever since this morning. T-max 100.7. He did not take any Tylenol. Patient states he started his first chemo on May 25 for 5 days. States his second chemo session is June 25. He admits to runny nose, and sore throat for the past 2-3 days as well as bilateral jaw pain starting today. He denies any coughing or shortness of breath, vomiting, diarrhea, abdominal pain or chest pain. He states his glucose has also been high today in the 200s. He states he called his oncologist Dr. Ruiz at [facility] [place] and was advised to come to the ER for evaluation. Related Data Home Medications Medication Instructions Recorded Confirmed aspirin [Aspir-81] 81 mg PO DAILY tab 11/13/12 05/24/18 cholecalciferol (vitamin D3) 1,000 unit PO BID 11/13/12 06/14/18 mometasone 1 bruno TOPICAL PRN PRN #45 gm 11/13/12 06/14/18 naproxen sodium [Aleve] 220 mg PO Q12H PRN 09/23/14 06/14/18 loperamide 2 mg PO QID PRN #30 tab-cap 07/21/15 06/14/18 cyanocobalamin (vitamin B-12) 1,000 mcg IJ 4w #3 vial 12/31/16 06/14/18 omeprazole 40 mg PO DAILY #90 tab-cap 11/10/17 06/14/18 probenecid 500 mg PO BID #180 tab-cap 11/10/17 06/14/18 lisinopril 40 mg PO DAILY #90 tab-cap 11/13/17 06/14/18 triamcinolone acetonide 0.1 % 1 applic TP BID #30 gm 11/28/17 06/14/18 topical ointment white petrolatum 41 % topical 1 applic TP Q8H #99 gm 11/28/17 06/14/18 ointment furosemide 20 mg tablet 10 mg PO DAILY AM #90 tab-cap 01/02/18 06/14/18 acyclovir 400 mg tablet 400 mg PO BID tab 05/11/18 06/14/18 ascorbic acid (vitamin C) ER 1,000 1,000 mg PO BID tab 05/11/18 06/14/18 mg tablet,extended release atorvastatin 10 mg tablet 10 mg PO QHS 05/11/18 06/14/18 insulin detemir (U-100) 100 See Rx Instructions SUB-Q 05/11/18 06/14/18 unit/mL (3 mL) subcutaneous pen DIRECTED ml pen needle, diabetic 31 gauge x #30 each 05/11/18 05/15/1805/30 enoxaparin 120 mg/0.8 mL 120 mg SC HS ml 05/15/18 05/24/18 subcutaneous syringe insulin lispro (U- 100) 100 See Rx Instructions SC AC #15 ml 05/15/18 06/14/18 unit/mL subcutaneous pen metoprolol succinate ER 100 mg 200 mg PO DAILY tab 05/15/18 06/14/18 tablet,extended release 24 hr sertraline 100 mg tablet 100 mg PO DAILY 05/15/18 06/14/18 apixaban 5 mg tablet 5 mg PO BID 05/18/18 05/24/18 gabapentin 300 mg PO DAILY 05/24/18 06/14/18 gabapentin 900 mg PO .QHS 05/24/18 06/14/18 blood sugar diagnostic strips #400 strip 05/25/18 lancets 28 gauge #400 each 05/25/18 fluconazole 50 mg PO DAILY 06/14/18 Previous Rx's Medication Instructions Recorded cyanocobalamin (vitamin B-12) 1,000 mcg IJ 4w #3 vial 12/31/16 omeprazole 40 mg PO DAILY #90 tab-cap 11/10/17 probenecid 500 mg PO BID #180 tab-cap 11/10/17 lisinopril 40 mg PO DAILY #90 tab-cap 11/13/17 triamcinolone acetonide 0.1 % 1 applic TP BID #30 gm 11/28/17 topical ointment white petrolatum 41 % topical 1 applic TP Q8H #99 gm 11/28/17 ointment furosemide 20 mg tablet 10 mg PO DAILY AM #90 tab-cap 01/02/18 insulin lispro (U- 100) 100 See Rx Instructions SC AC #15 ml 05/15/18 unit/mL subcutaneous pen blood sugar diagnostic strips #400 strip 05/25/18 lancets 28 gauge #400 each 05/25/18 Allergies Allergy/AdvReac Type Severity Reaction Status Date / Time oxycodone HCl [From Percocet] Allergy Intermediate hives Verified 06/14/18 18:31 sulfamethoxazole Allergy Intermediate hives Verified 06/14/18 18:31 [From Bactrim] trimethoprim [From Bactrim] Allergy Intermediate hives Verified 06/14/18 18:31 hydromorphone HCl Allergy Unknown rash Verified 06/14/18 18:31 [From Dilaudid] amoxicillin trihydrate AdvReac Intermediate C diff Verified 06/14/18 18:31 [From Augmentin] colitis codeine AdvReac Intermediate heart Verified 06/14/18 18:31 racing, N,V potassium clavulanate AdvReac Intermediate C diff Verified 06/14/18 18:31 [From Augmentin] colitis amiloride AdvReac Unknown increased Verified 06/14/18 18:31 K and decreased NA General Stated Complaint: GenMedical WES: 3 Review of Systems Review of Systems All systems reviewed & are unremarkable except as noted in HPI and below Constitutional Reports as per HPI, Denies chills and Reports fever(s) Eyes Denies blurry vision ENT Denies dizziness, Reports nasal congestion, Reports sore throat and Denies throat swelling Cardiovascular Denies chest pain and Denies dyspnea Respiratory Denies cough and Denies dyspnea Gastrointestinal Denies abdominal pain, Denies diarrhea and Denies vomiting Genitourinary Denies hematuria and Denies dysuria Musculoskeletal Denies back pain and Denies numbness Integumentary/Breasts Denies lesions and Denies rash Neurologic Denies dizziness, Denies focal weakness and Denies numbness Allergic/Immunologic Denies throat swelling [facility] Medical History Type 2 diabetes mellitus with complication, with long-term current use of insulin (Chronic) Spinal stenosis of lumbar region (Chronic 11/13/12) Sensorineural hearing loss, asymmetrical (Chronic 11/13/12) Mixed anxiety and depressive disorder (Chronic 11/13/12) Mitral valve insufficiency (Chronic 01/15/16) Microalbuminuria (Chronic 09/23/14) Idiopathic gout (Chronic 12/16/14) Hyperlipidemia (Chronic 11/13/12) Gait abnormality (Chronic 11/13/12) Essential hypertension (Chronic 11/13/12) Disorder of vitamin B12 (Chronic 01/14/13) Disease related peripheral neuropathy (Chronic 01/14/13) Cervical spinal stenosis (Chronic 02/08/15) Cervical radiculopathy (Chronic 01/27/15) Benign neoplasm of colon (Inactive 04/04/14) HTN (hypertension) Spinal stenosis Type 2 diabetes mellitus Surgical History H/O arthrodesis (Acute 02/15/15) H/O laminectomy (Acute Unknown) H/O vein stripping (Acute ~07/2006) S/P ACL repair (Acute ~02/1992) Anterior Lumbar interbody fusion (07/16/17) Colonoscopy - IV Sedation (04/04/14) Family History Mother Dementia Father Heart disease Gout Tongue cancer Grandmother Heart disease Other Diabetes Rheumatoid arthritis Social History Smoking/Tobacco Use Status: Never Alcohol Intake: current Alcohol Intake frequency: holidays/special occasions only Drug use: Never Substance use type: does not use Adopted: No Number of Children: 1 current occupation: Counselor substance abuse Pets and animals: No What type of physical activity do you participate in: none Seatbelt use: always Working smoke detector in home: Yes Carbon monox detector in home: Yes Exam Const General: cooperative and no acute distress Orientation: alert, awake and oriented x3 HENMT Head: normal to inspection Ears: hearing grossly normal bilaterally, external ears normal and TM's normal bilaterally General nose exam: external nose normal Face and sinus: normal facial exam Mouth: oral mucosae normal Teeth and gingiva: dentition normal Throat: posterior oropharynx normal Eyes General: appearance normal, both eyes and all related structures Eyelids: eyelids normal Pupils: PERRL EOM: EOM intact bilaterally Neck Neck: normal visual inspection Lymphatic: no lymphadenopathy noted Chest Chest: normal inspection of the chest Resp Effort & Inspection: normal respiratory effort and able to speak in complete sentences Auscultation: clear to auscultation bilaterally Cardio Rate: regular rate Rhythm: regular rhythm GI Inspection: normal to inspection Palpation: soft, not firm, no guarding, no hepatosplenomegaly, no masses and nontender Auscultation: normal bowel sounds Skin General skin exam: no rashes or lesions noted Neuro General: alert and awake Cognition: normal cognition Speech: speech normal Gait: normal gait Motor: muscle tone normal throughout Sensory Exam: no sensory deficits noted Extrem General: normal to inspection, full ROM and no edema Psych Appearance: grossly normal Mental Status: mental status grossly normal Speech and Movement: speech and movement normal Affect: normal affect Thought Process: normal Course Vital Signs Temperature 101.1 F H 06/14/18 16:13 Pulse 81 06/14/18 16:13 Respiratory Rate 14 06/14/18 16:13 Blood Pressure 163/76 H 06/14/18 16:13 Pulse Oximetry 99 06/14/18 16:13 Temperature 101.1 F H 06/14/18 16:13 Temperature Source Oral 06/14/18 16:13 Pulse 81 06/14/18 16:13 Respiratory Rate 14 06/14/18 16:13 Blood Pressure 163/76 H 06/14/18 16:13 Pulse Oximetry 99 06/14/18 16:13 Oxygen Delivery Method Room Air 06/14/18 16:13 Oxygen Flow Rate 0 06/14/18 16:13 Pain Level 2 06/14/18 16:13
[2018-06-14 16:51] LABS: Lipase 89 U/L (73-393)
[2018-06-14 16:53] LABS: White Blood Cell Count 0.26 k/cumm (4.4-10.8)
[2018-06-14 16:56] LABS: ALT 23 U/L (12-78); AST 12 U/L (15-37); Albumin 3.3 g/dL (3.4-5.0); Alkaline Phosphatase 138 U/L (46-116); Anion Gap 11.2 mmol/L (3-11); BUN 24 mg/dL (7-18); Bilirubin, Total 0.5 mg/dL (0.2-1.0); CO2 26.8 mmol/L (21.0-32.0); CREATININE 1.39 mg/dL (0.70-1.30); Calcium 9.2 mg/dL (8.5-10.1); Chloride 92 mmol/L (98-107); Estimated GFR 50.82 (mL/min/1.73m2); Glucose 433 mg/dL (70-100); Magnesium 1.3 mg/dL (1.8-2.4); Potassium 4.4 mmol/L (3.5-5.1); Sodium 130 mmol/L (136-145); Total Protein 7.9 g/dL (6.4-8.2)
[2018-06-14 16:58] LABS: Diff Comment Diff Reviewed; Platelet Count 11 x1000/uL (130-400)
[2018-06-14 16:59] LABS: RBC Morphology Normal
[2018-06-14 17:00] LABS: Troponin I < 0.02 ng/mL (0.00-0.06)
--- NOTE | 2018-06-14 17:01 | DI.RAD_ITS ---
SYMPTOM/DIAGNOSIS: FEVER, H/O AML AP AND LATERAL CHEST: The heart may be mildly enlarged. The lungs are grossly clear. There are pleural based radiodensities which appear to be associated with left ribs in a pattern suggesting multiple rib fractures, healing. These findings were not present on the examination of 03/30/18. No pleural effusion is seen. IMPRESSION: Presumed healing rib fractures, please correlate clinically.
--- NOTE | 2018-06-14 17:26 | DI.VRAD_ITS ---
EXAM: XR Chest, 2 Views EXAM DATE/TIME: 06/14/2018 4:24 PM CLINICAL HISTORY: 67 years old, male; Signs and symptoms; Fever; Patient HX: Fever, h/o aml. R/O acute disease TECHNIQUE: Imaging protocol: XR of the chest, 2 views. COMPARISON: CR XR CHEST 2V PA LATERAL 03/30/2018 1:11 PM FINDINGS: Tubes, catheters and devices: Right PICC in place with the tip at the proximal SVC. Lungs: See Pleural Space Finding. Pleural space: There is some left sided pleural based opacities. Similar opacities noted in the right midlung. Suspect healing rib fractures. Heart/Mediastinum: Cardiomegaly. Bones/joints: Status post lower cervical fusion. IMPRESSION: Bilateral lung and pleural opacities. Suspect healing rib fractures. If there is no history for trauma, consider CT followup. COMMENT: Preliminary interpretation is based on receipt of 3 image(s). A final report will be issued subsequently. Dictated and Authenticated by: Juana Lamar MD. Ordering:DREW Cerda MD
[2018-06-14] MEDS: Normal Saline 250 ML IV (17:30)
[2018-06-14] MEDS: Insulin REGULAR-Human 100 UNITS/ML UNIT IV (18:07)
[2018-06-14] MEDS: CEFEPIME 2 GM in Normal Saline 100 ML IVPB (18:27)
[2018-06-14 18:28] LABS: Bilirubin Negative (Negative); Blood Trace-lysed (Negative); Clarity Clear; Glucose >=1000 mg/dL (Negative); Ketones Negative (Negative); Leukocyte Esterase Negative (Negative); Nitrite Negative (Negative); Specific Gravity 1.015 (1.005-1.025); Urobilinogen 0.2 EU/dL (Up TO 0.2)
[2018-06-14 18:40] LABS: Bacteria Negative HPF (Negative); C & S Indicated? No; Casts Negative LPF (Negative); Crystals Negative HPF (Negative); Epithelial Cells Negative HPF (Negative); Mucus Negative (Negative); Other Cells Negative (Negative); RBC 0-2 (0-2); WBC Negative HPF (0-5)
[2018-06-14] MEDS: MAGNESIUM SULFATE 1 GM/100 ML BAG IVPB (19:31)
[2018-06-14] MEDS: Insulin REGULAR-Human 100 UNITS/ML UNIT 10 UNITS IV (20:44)
[2018-06-14] MEDS: Normal Saline 1,000 ML 200 ML IV (20:45)
== END 2018-06-14 20:58 | disposition short-term general hospital (02) ==
PROVIDERS: Emergency Provider Physician Assistant; PCP Nurse Practitioner Family
DX: J18.9 Pneumonia, unspecified organism (principal); R50.81 Fever presenting with conditions classified elsewhere; C92.00 Acute myeloblastic leukemia, not having achieved remission; R91.8 Other nonspecific abnormal finding of lung field; E11.9 Type 2 diabetes mellitus without complications; I10 Essential (primary) hypertension; Z92.21 Personal history of antineoplastic chemotherapy; Z79.4 Long term (current) use of insulin
CPT/HCPCS: 36410; 36415; 80053; 83690; 87040; 87449; 93005; 96361; 96365; 96367; 96375; 99285; 71046; 81003; 81015; 83605; 83735; 84484; 85025; 93010; J3475

== ENCOUNTER 2018-06-25 00:51 | Outpatient (RCR) | payer MEDICARE, BC, SELFPAY ==
[2018-06-22 13:23] LABS: HCT 28.2 % (40.0-50.0); HGB 9.3 g/dL (13.5-17.5); Mean Corpuscular Hemoglobin 30.6 pg (27.0-33.0); Mean Corpuscular Volume 92.8 fL (80-95); Mean Platelet Volume 9.6 fL (8.0-11.0); RBC 3.04 m/cumm (4.50-6.00); RBC Distribution Width 15.2 % (11.8-14.1)
[2018-06-22 13:50] LABS: Platelet Count 295 x1000/uL (130-400)
== END 2018-07-14 23:59 | disposition home or self-care (01) ==
LOC: INF 00:51
PROVIDERS: PCP Nurse Practitioner Family; Visit Provider Nurse Practitioner Adult Health
DX: C92.00 Acute myeloblastic leukemia, not having achieved remission (principal); Z45.2 Encounter for adjustment and management of vascular access device
CPT/HCPCS: 36415; 85027; 86900; 86901

== ENCOUNTER 2018-09-15 10:12 | Outpatient (CLI) | payer MEDICARE, BC, SELFPAY ==
[2018-09-15 10:46] LABS: Absolute Lymphocyte Count 0.17 k/cumm (1.2-3.4); HCT 30.1 % (40.0-50.0); HGB 10.3 g/dL (13.5-17.5); Lymphocytes % 94.4; Mean Corp. HGB Concentration 34.2 g/dL (32.0-36.0); Mean Corpuscular Hemoglobin 33.3 pg (27.0-33.0); Mean Corpuscular Volume 97.4 fL (80-95); Mean Platelet Volume 8.8 fL (8.0-11.0); Neutrophils % 5.6; RBC 3.09 m/cumm (4.50-6.00)
[2018-09-15 11:17] LABS: Absolute Neutrophil Count 0.01 k/cumm (1.2-6.7); White Blood Cell Count 0.18 k/cumm (4.4-10.8)
[2018-09-15 11:18] LABS: Platelet Count 25 x1000/uL (130-400)
[2018-09-15 11:19] LABS: Diff Comment Agrees w/ Instrument; Hypochromasia 1+
== END 2018-09-15 10:32 ==
PROVIDERS: PCP Nurse Practitioner Family; Visit Provider Internal Medicine Hematology & Oncology
DX: D64.9 Anemia, unspecified (principal)
CPT/HCPCS: 36415; 85027; 86900; 86901; 85025

== ENCOUNTER 2018-09-20 10:51 | Emergency (ER) | payer MEDICARE, BC, SELFPAY ==
[2018-09-20] VITALS (17 sets, daily range): BP systolic 108–155; BP diastolic 53–81; PULSE 57–74; RESP 10–21; TEMP 36.9; O2SAT 95–100
--- NOTE | 2018-09-20 11:06 | DI.RAD_ITS ---
SYMPTOM/DIAGNOSIS: WEAKNESS, FATIGUE, DIZZINESS, R/O ACUTE DISEASE PA AND LATERAL CHEST: 09/20 The heart is mildly enlarged. The lungs are grossly clear with mild changes of scarring. No pleural effusion seen. CONCLUSION: No evidence of acute disease.
[2018-09-20 11:21] LABS: Lactate-non-spesis 2.4 mmol/l (0.6-1.4)
--- NOTE | 2018-09-20 11:23 | ED.GENADUL_ITS ---
Discharge Plan Disposition Patient Disposition: HOME Condition: Improving Discharge Details Chief Complaint: Dizzy/Sync Clinical Impression: Acute dehydration, Oral candidiasis, History of acute myeloid leukemia, Neutropenia due to and not concurrent with chemotherapy Primary Care Provider: Sapna Ornelas ED Provider: Zaida Johnson Home Meds and New Rx's Prescriptions: New nystatin 100,000 unit/mL suspension 500,000 unit BC QID 10 Days Qty: 200 RF: 0 Continued triamcinolone acetonide 0.1 % ointment 1 applic TP BID Qty: 30 RF: 0 Aquaphor Healing 41 % ointment 1 applic TP Q8H Qty: 99 RF: 1 sertraline 100 mg tablet 100 mg PO DAILY RF: 0 aspirin [Aspir-81] 81 MG tablet,delayed release (DR/EC) 81 mg PO DAILY RF: 0 mometasone 45 GM cream 1 bruno Topical PRN PRNQty: 45 RF: 0 cholecalciferol (vitamin D3) 1,000 UNIT tablet 1,000 unit PO BID RF: 0 naproxen sodium [Aleve] 220 MG capsule 220 mg PO Q12H PRN RF: 0 loperamide 2 MG tablet 2 mg PO QID PRNQty: 30 RF: 1 cyanocobalamin (vitamin B-12) 1,000 MCG/1 ML solution 1,000 mcg IJ 4w Qty: 3 RF: 3 omeprazole 40 MG capsule,delayed release(DR/EC) 40 mg PO DAILY Qty: 90 RF: 3 probenecid 500 MG tablet 500 mg PO BID Qty: 180 RF: 3 acyclovir 400 mg tablet 400 mg PO BID RF: 0 (DME) pen needle, diabetic [Lite Touch Insulin Pen [place]] 31 gauge x 3/16 needle See Dose Instructions .ROUTE .MEDSUPPLY Qty: 30 RF: 0 ascorbic acid (vitamin C) [Vitamin C] 1,000 mg tablet extended release 1,000 mg PO BID RF: 0 Humalog KwikPen Insulin 100 unit/mL insulin pen See Rx Instructions SC AC Qty: 15 RF: 0 (DME) lancets [FreeStyle Lancets] 28 gauge misc 1 ea Miscellaneous TID Qty: 400 RF: 3 (DME) FreeStyle Lite Strips strip 1 ea Miscellaneous TID Qty: 400 RF: 3 metoprolol succinate 100 mg cap,sprinkle,ER 24hr dose pack 100 mg PO DAILY RF: 0 Levemir FlexTouch U-100 Insuln 100 unit/mL (3 mL) insulin pen See Rx Instructions Sub-Q DIRECTED RF: 3 lisinopril 40 mg tablet 40 mg PO DAILY RF: 0 amlodipine 10 mg tablet 10 mg PO DAILY RF: 0 furosemide 20 mg tablet 20 mg PO DAILY PRNRF: 0 gabapentin 300 mg capsule See Rx Instructions PO BID Qty: 360 RF: 3 atorvastatin 80 mg tablet 80 mg PO DAILY RF: 0 fluconazole 200 mg tablet 200 mg PO DAILY RF: 0 levofloxacin [Levaquin] 750 mg tablet 750 mg PO DAILY RF: 0 No Action amoxicillin-pot clavulanate 875-125 mg Tablet 1 tab PO BID Qty: 5 RF: 0 Discharge Instructions Instructions: Dehydration (ED), Oral Candidiasis (ED), Neutropenia (ED) Additional Instructions: Use the Magic mouthwash as needed and directed. Use the nystatin mouthwash as directed. Follow-up with your scheduled appointment with [facility] on Friday. Return immediately to the emergency department if you develop any worsening or new concerning symptoms of fever, increasing weakness, fatigue or dizziness . Discharge Data Discharge Date/Time-TO BE ENTERED AT DEPARTURE: 09/20/18 16:02 Discharge Physician: Zaida Johnson Medical Decision Making 67-year-old male with a history of AML, NSTEMI, cardiac arrest with V. fib status post chemotherapy, diabetes, hypertension, high cholesterol, anxiety and depression who presents with dizziness, weakness and fatigue since last night. Patient is 2 days status post a platelet transfusion. Denies fever, headache, neck pain, chest pain, shortness of breath, abdominal pain, vomiting, diarrhea or urinary symptoms. He does admit to mouth sores and right-sided sore throat. Vitals within normal limits. Afebrile. Patient appears nontoxic. He has faint tongue ulcers as well as right-sided posterior erythema and ecchymosis. Could be consistent with aphthous ulcers. Does not appear obviously consistent with Tamie but that could be a possibility. Differential diagnosis includes neutropenia, anemia, ACS, pneumonia, UTI, electrolyte of normality, dehydration. Will give Magic mouthwash, check screening labs, urinalysis, chest x-ray and bolus IV fluids. 1345 --labs and imaging reviewed - white blood cell count of 0.2. Absolute neutrophil 0.01. No bands. BUN 28. Creatinine 1.55. Lactate 2.4. Troponin negative. Urinalysis negative for infection. Chest x-ray negative. Rapid strep negative. Patient also orthostatic with blood pressure decrease upon standing. Patient states he feels much better after IVF and is requesting food. 1410 --discussed with [facility] hematology -lab results of leukopenia and neutropenia expected with recent chemo. As patient has no fever, feels better, and was noted to be orthostatic, likely his symptoms could be attributed to dehydration. Recommends blood cultures, and if patient feels better can discharged home and follow-up with his scheduled appointment with hematology at [facility] this Friday. Recommends treatment with nystatin for a possible oral candidiasis as patient has a history of this. He is on oral fluconazole. We will also sent home with Magic mouthwash. 1530 --Repeat lactate after fluids now normalized at 1. Patient was able to ambulate and feels much better and denies any dizziness. BP improved and stable. Pt feels good to go home. Plan for follow up with his broth setter at [facility] on Friday. Instructed to return here with any concerns. Medical Records Medical records reviewed: Yes I reviewed the patient's medical records. Imaging Data Radiologic Study: Radiologist's impression: XR Chest, 2 Views EXAM DATE/TIME: 09/20/2018 11:08 AM CLINICAL HISTORY: 67 years old, male; Other: Weakness, fatigue, dizziness, R/O acute disease TECHNIQUE: Imaging protocol: XR of the chest, 2 views. COMPARISON: CR XR CHEST 2V PA LATERAL 06/14/2018 4:55 PM FINDINGS: Lungs: Unremarkable. No consolidation. Pleural space: Unremarkable. No pleural effusion. No pneumothorax. Heart/Mediastinum: Unremarkable. No cardiomegaly. Bones/joints: Unremarkable. IMPRESSION: No acute findings. Lab Data Lab results reviewed: Yes I reviewed the patient's lab results. 09/20/18 15:37 Blood Blood Culture - Final NO GROWTH 120 HOURS 09/20/18 14:59 Blood Blood Culture - Final NO GROWTH 120 HOURS 09/20/18 11:00 Tonsil - Not Specified Streptococcus Screen (MARIAJOSE) - Final Laboratory Tests Range/Units 07/07/19 07/07/19 07/07/19 11:15 11:15 11:15 WBC Cancelled RBC Cancelled Hgb Cancelled Hct Cancelled MCV Cancelled MCH Cancelled MCHC Cancelled RDW Cancelled Plt Count Cancelled MPV Cancelled Immature Gran % Cancelled Neutrophils % Cancelled Band Neutrophils % Cancelled Lymphocytes % Cancelled Atypical Lymphs % Cancelled Monocytes % Cancelled Eosinophils % Cancelled Basophils % Cancelled Metamyelocytes % Cancelled Myelocytes % Cancelled Promyelocytes % Cancelled Absolute Neutrophils Cancelled Absolute Lymphocytes Cancelled Absolute Monocytes Cancelled Absolute Eosinophils Cancelled Absolute Basophils Cancelled Nucleated RBCs Cancelled Differential Comment Cancelled Other Cell Type Cancelled RBC Morphology Cancelled Polychromasia Cancelled Hypochromasia Cancelled Poikilocytosis Cancelled Basophilic Stippling Cancelled Anisocytosis Cancelled Microcytosis Cancelled Macrocytosis Cancelled Spherocytes Cancelled Target Cells Cancelled Tear Drop Cells Cancelled Ovalocytes Cancelled Stomatocytes Cancelled Christie-Shoreline Bodies Cancelled Jessee Cells Cancelled Acanthocytes (Spur) Cancelled Schistocytes Cancelled Sodium Cancelled Potassium Cancelled Chloride Cancelled Carbon Dioxide Cancelled Anion Gap Cancelled BUN Cancelled Creatinine Cancelled Estimated GFR/1.73 m2 Cancelled Glucose Cancelled Lactate (0.6-1.4) mmol/l 2.4 H Calcium Cancelled Magnesium Cancelled Total Bilirubin Cancelled AST Cancelled ALT Cancelled Alkaline Phosphatase Cancelled Troponin I Cancelled Total Protein Cancelled Albumin Cancelled Lipase Cancelled Urine Color (Yellow) Urine Clarity (Clear) Urine pH (5-8) Ur Specific [place] (1.005-1.025) Urine Protein (Negative) mg/dL Urine Ketones (Negative) mg/dL Urine Blood (Negative) Urine Nitrite (Negative) Urine Bilirubin (Negative) Urine Urobilinogen (Up TO 0.2) EU/dL Ur Leukocyte Esterase (Negative) Urine RBC (0-2) Urine WBC (0-5) HPF Ur Epithelial Cells (Negative) HPF Urine Crystals (Negative) HPF Urine Bacteria (Negative) HPF Urine Casts (Negative) LPF Urine Mucus (Negative) Ur Culture Indicated? Urine Glucose (Negative) mg/dL Range/Units 09/20/18 09/20/18 09/20/18 11:55 11:55 13:05 WBC 0.20 L* RBC 2.84 L Hgb 9.2 L Hct 26.9 L MCV 94.7 MCH 32.4 MCHC 34.2 RDW 12.3 Plt Count 42 L D MPV 11.8 H Immature Gran % 0.0 Neutrophils % 5.0 Band Neutrophils % Lymphocytes % 90.0 Atypical Lymphs % Monocytes % 5.0 Eosinophils % 0.0 Basophils % 0.0 Metamyelocytes % Myelocytes % Promyelocytes % Absolute Neutrophils 0.01 L* Absolute Lymphocytes 0.18 L Absolute Monocytes 0.01 L Absolute Eosinophils 0.00 Absolute Basophils 0.00 Nucleated RBCs Differential Comment Diff reviewed Other Cell Type RBC Morphology Normal Polychromasia Hypochromasia Poikilocytosis Basophilic Stippling Anisocytosis Microcytosis Macrocytosis Spherocytes Target Cells Tear Drop Cells Ovalocytes Stomatocytes Christie-Shoreline Bodies [place] Cells Acanthocytes (Spur) Schistocytes Sodium 137 Potassium 4.4 Chloride 99 Carbon Dioxide 27.7 Anion Gap 10.3 BUN 28 H Creatinine 1.55 H Estimated GFR/1.73 m2 44.81 Glucose 139 H Lactate (0.6-1.4) mmol/l Calcium 9.8 Magnesium 2.0 Total Bilirubin 0.4 AST 13 L ALT 22 Alkaline Phosphatase 106 Troponin I < 0.05 Total Protein 8.2 Albumin 3.6 Lipase 69 L Urine Color (Yellow) Yellow Urine Clarity (Clear) Clear Urine pH (5-8) 7.0 Ur Specific [place] (1.005-1.025) 1.015 Urine Protein (Negative) mg/dL 100 H Urine Ketones (Negative) mg/dL Negative Urine Blood (Negative) Negative Urine Nitrite (Negative) Negative Urine Bilirubin (Negative) Negative Urine Urobilinogen (Up TO 0.2) EU/dL 0.2 Ur Leukocyte Esterase (Negative) Negative Urine RBC (0-2) Negative Urine WBC (0-5) HPF 0-2 Ur Epithelial Cells (Negative) HPF Few Urine Crystals (Negative) HPF Negative Urine Bacteria (Negative) HPF Negative Urine Casts (Negative) LPF 0-2 hyaline Urine Mucus (Negative) Trace Ur Culture Indicated? No Urine Glucose (Negative) mg/dL Negative Range/Units 09/20/18 14:59 WBC RBC Hgb Hct MCV MCH MCHC RDW Plt Count MPV Immature Gran % Neutrophils % Band Neutrophils % Lymphocytes % Atypical Lymphs % Monocytes % Eosinophils % Basophils % Metamyelocytes % Myelocytes % Promyelocytes % Absolute Neutrophils Absolute Lymphocytes Absolute Monocytes Absolute Eosinophils Absolute Basophils Nucleated RBCs Differential Comment Other Cell Type RBC Morphology Polychromasia Hypochromasia Poikilocytosis Basophilic Stippling Anisocytosis Microcytosis Macrocytosis Spherocytes Target Cells Tear Drop Cells Ovalocytes Stomatocytes Christie-Shoreline Bodies [place] Cells Acanthocytes (Spur) Schistocytes Sodium Potassium Chloride Carbon Dioxide Anion Gap BUN Creatinine Estimated GFR/1.73 m2 Glucose Lactate (0.6-1.4) mmol/l 1.0 Calcium Magnesium Total Bilirubin AST ALT Alkaline Phosphatase Troponin I Total Protein Albumin Lipase Urine Color (Yellow) Urine Clarity (Clear) Urine pH (5-8) Ur Specific [place] (1.005-1.025) Urine Protein (Negative) mg/dL Urine Ketones (Negative) mg/dL Urine Blood (Negative) Urine Nitrite (Negative) Urine Bilirubin (Negative) Urine Urobilinogen (Up TO 0.2) EU/dL Ur Leukocyte Esterase (Negative) Urine RBC (0-2) Urine WBC (0-5) HPF Ur Epithelial Cells (Negative) HPF Urine Crystals (Negative) HPF Urine Bacteria (Negative) HPF Urine Casts (Negative) LPF Urine Mucus (Negative) Ur Culture Indicated? Urine Glucose (Negative) mg/dL ECG Data Attestation: I personally reviewed and interpreted this ECG (s) as follows: Interpretation: Rate of 75, sinus, PACs. No acute ST elevation or depression. QTc 444. QRS 94. HPI General Mode of arrival: EMS . Date/Time Provider Initiated Documentation: 09/20/18 11:23 . Limitations to Documentation: no limitations . Information obtained by: patient . HPI Narrative: Patient is a 67-year-old male with a history of AML, NSTEMI, and history of cardiac arrest with V. fib status post chemotherapy, diabetes, hypertension, hyperlipidemia who presents with l ightheadedness, weakness and fatigue since yesterday. Patient states his lightheadedness is worse with standing and denies any spinning sensation. He last received platelets on Friday at [facility] for a platelet count of 4. He states for the past 2 weeks he has had petechia, mouth sores and right-sided sore throat. His last blood transfusion was approximately 3 months ago. His last chemo consolidation was September 04. He states he last ate food last night. His last bowel movement was within normal limits. He denies any known fevers, headache, neck pain, chest pain, shortness of breath, abdominal pain, vomiting, diarrhea or urinary symptoms. He denies any recent antibiotics. Related Data Home Medications Medication Instructions Recorded Confirmed aspirin [Aspir-81] 81 mg PO DAILY tab 11/13/12 09/22/18 cholecalciferol (vitamin D3) 1,000 unit PO BID 11/13/12 09/22/18 mometasone 1 bruno TOPICAL PRN PRN #45 gm 11/13/12 09/22/18 naproxen sodium [Aleve] 220 mg PO Q12H PRN 09/23/14 09/22/18 loperamide 2 mg PO QID PRN #30 tab-cap 07/21/15 09/22/18 cyanocobalamin (vitamin B-12) 1,000 mcg IJ 4w #3 vial 12/31/16 09/22/18 omeprazole 40 mg PO DAILY #90 tab-cap 11/10/17 09/22/18 probenecid 500 mg PO BID #180 tab-cap 11/10/17 09/22/18 triamcinolone acetonide 0.1 % 1 applic TP BID #30 gm 11/28/17 09/22/18 topical ointment white petrolatum 41 % topical 1 applic TP Q8H #99 gm 11/28/17 09/22/18 ointment acyclovir 400 mg tablet 400 mg PO BID tab 05/11/18 09/22/18 ascorbic acid (vitamin C) 1,000 mg 1,000 mg PO BID tab 05/11/18 09/22/18 tablet,extended release pen needle, diabetic 31 gauge x #30 each 05/11/18 07/03/1805/30 insulin lispro 100) 100 unit/mL See Rx Instructions SC AC #15 ml 05/15/18 09/22/18 subcutaneous pen sertraline 100 mg tablet 100 mg PO DAILY 05/15/18 09/22/18 blood sugar diagnostic #400 strip 05/25/18 07/03/18 lancets 28 gauge #400 each 05/25/18 07/03/18 insulin detemir U-100 100 unit/mL See Rx Instructions SUB-Q 06/22/18 09/22/18 (3 mL) subcutaneous pen DIRECTED ml metoprolol succinate 100 mg 100 mg PO DAILY 06/22/18 09/22/18 capsule sprinkle, ext. release 24 hr amlodipine 10 mg tablet 10 mg PO DAILY 06/23/18 09/22/18 furosemide 20 mg tablet 20 mg PO DAILY PRN 06/23/18 09/22/18 lisinopril 40 mg tablet 40 mg PO DAILY 06/23/18 09/22/18 gabapentin 300 mg capsule See Rx Instructions PO BID #360 07/08/18 09/22/18 tab-cap atorvastatin 80 mg tablet 80 mg PO DAILY 08/26/18 09/22/18 fluconazole 200 mg tablet 200 mg PO DAILY 08/31/18 09/22/18 levofloxacin 750 mg tablet 750 mg PO DAILY 09/11/18 09/22/18 nystatin 500,000 unit BC QID 10 Days #200 ml 09/20/18 09/22/18 amoxicillin-pot clavulanate 1 tab PO BID #5 tab 09/25/18 Previous Rx's Medication Instructions Recorded cyanocobalamin (vitamin B-12) 1,000 mcg IJ 4w #3 vial 12/31/16 omeprazole 40 mg PO DAILY #90 tab-cap 11/10/17 probenecid 500 mg PO BID #180 tab-cap 11/10/17 triamcinolone acetonide 0.1 % 1 applic TP BID #30 gm 11/28/17 topical ointment white petrolatum 41 % topical 1 applic TP Q8H #99 gm 11/28/17 ointment insulin lispro 100) 100 unit/mL See Rx Instructions SC AC #15 ml 05/15/18 subcutaneous pen blood sugar diagnostic #400 strip 05/25/18 lancets 28 gauge #400 each 05/25/18 gabapentin 300 mg capsule See Rx Instructions PO BID #360 07/08/18 tab-cap nystatin 500,000 unit BC QID 10 Days #200 ml 09/20/18 amoxicillin-pot clavulanate 1 tab PO BID #5 tab 09/25/18 Allergies Allergy/AdvReac Type Severity Reaction Status Date / Time oxycodone HCl [From Percocet] Allergy Intermediate hives Verified 09/22/18 16:09 sulfamethoxazole Allergy Intermediate hives Verified 09/22/18 16:09 [From Bactrim] trimethoprim [From Bactrim] Allergy Intermediate hives Verified 09/22/18 16:09 hydromorphone HCl Allergy Unknown rash Verified 09/22/18 16:09 [From Dilaudid] amoxicillin trihydrate AdvReac Intermediate C diff Verified 09/22/18 16:09 [From Augmentin] colitis codeine AdvReac Intermediate heart Verified 09/22/18 16:09 racing, N,V potassium clavulanate AdvReac Intermediate C diff Verified 09/22/18 16:09 [From Augmentin] colitis amiloride AdvReac Unknown increased Verified 09/22/18 16:09 K and decreased NA General Stated Complaint: Dizzy/Sync WES: 3 Review of Systems Review of Systems All systems reviewed & are unremarkable except as noted in HPI and below Constitutional Reports as per HPI, Denies chills, Reports fatigue, Denies fever(s) and Reports weakness Eyes Denies blurry vision ENT Reports dizziness, Denies sore throat and Denies throat swelling Cardiovascular Denies chest pain and Denies dyspnea Respiratory Denies cough and Denies dyspnea Gastrointestinal Denies abdominal pain, Denies diarrhea and Denies vomiting Genitourinary Denies hematuria and Denies dysuria Musculoskeletal Denies back pain and Denies numbness Integumentary/Breasts Denies lesions and Denies rash Neurologic Reports dizziness, Denies focal weakness, Denies numbness and Reports weakness Endocrine Reports fatigue Allergic/Immunologic Denies throat swelling [facility] Medical History Type 2 diabetes mellitus with complication, with long-term current use of insulin (Chronic) Spinal stenosis of lumbar region (Chronic 11/13/12) Sensorineural hearing loss, asymmetrical (Chronic 11/13/12) Mixed anxiety and depressive disorder (Chronic 11/13/12) Mitral valve insufficiency (Chronic 01/15/16) Microalbuminuria (Chronic 09/23/14) Idiopathic gout (Chronic 12/16/14) Hyperlipidemia (Chronic 11/13/12) Gait abnormality (Chronic 11/13/12) Essential hypertension (Chronic 11/13/12) Disorder of vitamin B12 (Chronic 01/14/13) Disease related peripheral neuropathy (Chronic 01/14/13) Cervical spinal stenosis (Chronic 02/08/15) Cervical radiculopathy (Chronic 01/27/15) Benign neoplasm of colon (Inactive 04/04/14) AML (acute myeloid leukemia) (Acute) HTN (hypertension) Spinal stenosis Type 2 diabetes mellitus Surgical History H/O arthrodesis (Acute 02/15/15) H/O laminectomy (Acute Unknown) H/O vein stripping (Acute ~07/2006) S/P ACL repair (Acute ~02/1992) Anterior Lumbar interbody fusion (07/16/17) Colonoscopy - IV Sedation (04/04/14) Family History Mother Dementia Father Heart disease Gout Tongue cancer Grandmother Heart disease Other Diabetes Rheumatoid arthritis Social History Smoking/Tobacco Use Status: Never Alcohol Intake: current Alcohol Intake frequency: holidays/special occasions only Drug use: Never Substance use type: does not use Adopted: No Number of Children: 1 current occupation: Counselor substance abuse Pets and animals: No What type of physical activity do you participate in: none Seatbelt use: always Working smoke detector in home: Yes Carbon monox detector in home: Yes Exam Const General: cooperative and healthy appearing Orientation: alert and awake HENMT Head: normal to inspection Ears: hearing grossly normal bilaterally, external ears normal and TM's normal bilaterally General nose exam: external nose normal Face and sinus: normal facial exam Mouth: oral mucosae normal Teeth and gingiva: dentition normal Throat: other (tongue ulcers noted to tip and sides; approximately 4x4mm. ) Other: Right sided posterior erythema/ecchymoses/ulcers. No peritonsillar abscess. No active bleeding. Uvula midline. Eyes General: appearance normal, both eyes and all related structures Eyelids: eyelids normal Pupils: PERRL EOM: EOM intact bilaterally Neck Neck: normal visual inspection Lymphatic: no lymphadenopathy noted Chest Chest: normal inspection of the chest Resp Effort & Inspection: normal respiratory effort and able to speak in complete sentences Auscultation: clear to auscultation bilaterally Cardio Rate: regular rate Rhythm: regular rhythm GI Inspection: normal to inspection Palpation: soft, not firm, no guarding, no hepatosplenomegaly, no masses and nontender Auscultation: normal bowel sounds Back/Spine/Pelvis Back: no CVA tenderness Skin General skin exam: no rashes or lesions noted Neuro General: alert, awake and oriented x3 Cranial Nerves: CN's II-XI intact bilaterally Cognition: normal cognition Speech: speech normal Gait: normal gait Motor: muscle tone normal throughout and strength 5/5 throughout Sensory Exam: no sensory deficits noted Extrem General: normal to inspection, full ROM, normal capillary refill and no edema Psych Appearance: grossly normal Mental Status: mental status grossly normal Speech and Movement: speech and movement normal Affect: normal affect Thought Process: normal Course Vital Signs Temperature 98.4 F 09/20/18 10:54 Pulse 74 09/20/18 10:54 Respiratory Rate 12 09/20/18 10:54 Blood Pressure 111/58 L 09/20/18 10:54 Pulse Oximetry 100 09/20/18 10:54 Temperature 98.4 F 09/20/18 10:54 Temperature Source Oral 09/20/18 10:54 Pulse 74 09/20/18 10:54 Respiratory Rate 10 L 09/20/18 10:58 Respiratory Effort Non-Labored 09/20/18 10:58 Respiratory Depth Normal 09/20/18 10:58 Blood Pressure 111/58 L 09/20/18 10:54 Pulse Oximetry 100 09/20/18 10:54 Pain Level 5 09/20/18 10:54 Lab/Test Results Lab/Test Results: 09/20/18 11:17 Tonsil - Not Specified Streptococcus Screen (MARIAJOSE) - Pending Laboratory Tests Range/Units 09/20/18 11:15 Lactate (0.6-1.4) mmol/l 2.4 H POC Strep Test-HERNANDEZ(Rapid) Start: 09/20/18 11:16 Freq: .Rapid Strep Test Status: Active Protocol: Document 09/20/18 11:17 SF (Rec: 09/20/18 11:17 SF [id number]) Strep test-HERNANDEZ(Rapid)-POC POC-Strep test-HERNANDEZ (Rapid) Negative POC-Strep test-HERNANDEZ (Rapid) Negative
[2018-09-20] MEDS: Magic Mouthwash 119 ML BTL 10 ML MM ×2 (11:31→15:41)
[2018-09-20 12:19] LABS: HCT 26.9 % (40.0-50.0); HGB 9.2 g/dL (13.5-17.5); Mean Corp. HGB Concentration 34.2 g/dL (32.0-36.0); Mean Corpuscular Hemoglobin 32.4 pg (27.0-33.0); Mean Corpuscular Volume 94.7 fL (80-95); Mean Platelet Volume 11.8 fL (8.0-11.0); RBC 2.84 m/cumm (4.50-6.00); RBC Distribution Width 12.3 % (11.8-14.1)
[2018-09-20 12:20] LABS: Absolute Lymphocyte Count 0.18 k/cumm (1.2-3.4); Absolute Monocyte Count 0.01 k/cumm (0.11-0.7); Absolute Neutrophil Count 0.01 k/cumm (1.2-6.7)
[2018-09-20 12:21] LABS: Diff Comment Diff Reviewed; RBC Morphology Normal
[2018-09-20 12:23] LABS: Platelet Count 42 x1000/uL (130-400)
[2018-09-20 12:38] LABS: ALT 22 U/L (12-78); AST 13 U/L (15-37); Albumin 3.6 g/dL (3.4-5.0); Alkaline Phosphatase 106 U/L (46-116); Anion Gap 10.3 mmol/L (3-11); BUN 28 mg/dL (7-18); Bilirubin, Total 0.4 mg/dL (0.2-1.0); CO2 27.7 mmol/L (21.0-32.0); CREATININE 1.55 mg/dL (0.70-1.30); Calcium 9.8 mg/dL (8.5-10.1); Chloride 99 mmol/L (98-107); Estimated GFR 44.81 (mL/min/1.73m2); Glucose 139 mg/dL (70-100); Lipase 69 U/L (73-393); Potassium 4.4 mmol/L (3.5-5.1); Sodium 137 mmol/L (136-145); Total Protein 8.2 g/dL (6.4-8.2)
[2018-09-20 12:39] LABS: Troponin I < 0.05 ng/mL (0.00-0.06)
--- NOTE | 2018-09-20 12:39 | DI.VRAD_ITS ---
EXAM: XR Chest, 2 Views EXAM DATE/TIME: 09/20/2018 11:08 AM CLINICAL HISTORY: 67 years old, male; Other: Weakness, fatigue, dizziness, R/O acute disease TECHNIQUE: Imaging protocol: XR of the chest, 2 views. COMPARISON: CR XR CHEST 2V PA LATERAL 06/14/2018 4:55 PM FINDINGS: Lungs: Unremarkable. No consolidation. Pleural space: Unremarkable. No pleural effusion. No pneumothorax. Heart/Mediastinum: Unremarkable. No cardiomegaly. Bones/joints: Unremarkable. IMPRESSION: No acute findings. Dictated and Authenticated by: Nina Garcia MD. Ordering:DREW Cerda MD
[2018-09-20] MEDS: Normal Saline 500 ML IV (12:51)
[2018-09-20 13:17] LABS: Bilirubin Negative (Negative); Blood Negative (Negative); Clarity Clear (Clear); Glucose Negative (Negative); Ketones Negative (Negative); Leukocyte Esterase Negative (Negative); Nitrite Negative (Negative); Specific Gravity 1.015 (1.005-1.025); Urobilinogen 0.2 EU/dL (Up TO 0.2)
[2018-09-20 13:31] LABS: Bacteria Negative HPF (Negative); Crystals Negative HPF (Negative); Epithelial Cells Few HPF (Negative); Mucus Trace (Negative); RBC Negative (0-2); WBC 0-2 HPF (0-5)
[2018-09-20 13:32] LABS: C & S Indicated? No; Casts 0-2 Hyaline LPF (Negative)
[2018-09-20] MEDS: Acetaminophen 500 MG TAB 1000 MG PO (15:40)
== END 2018-09-20 16:02 | disposition home or self-care (01) ==
PROVIDERS: Emergency Provider Physician Assistant; PCP Nurse Practitioner Family
DX: E86.0 Dehydration (principal); B37.0 Candidal stomatitis; D70.8 Other neutropenia; C92.00 Acute myeloblastic leukemia, not having achieved remission; Z92.21 Personal history of antineoplastic chemotherapy; I10 Essential (primary) hypertension; E11.9 Type 2 diabetes mellitus without complications; Z79.4 Long term (current) use of insulin
CPT/HCPCS: 36415; 80053; 83690; 87040; 87880; 93005; 96360; 99285; 71046; 81003; 81015; 83605; 83735; 84484; 85025; 87081; 93010

== ENCOUNTER 2018-09-22 10:26 | Outpatient (CLI) | payer MEDICARE, BC, SELFPAY | END 2018-09-22 10:46 | PROVIDERS: PCP Nurse Practitioner Family; Visit Provider Internal Medicine Hematology & Oncology | DX: C92.01 Acute myeloblastic leukemia, in remission (principal) | CPT/HCPCS: 36415; 86850; 86900; 86901; 85025 ==

== ENCOUNTER 2018-09-22 15:57 | Inpatient (IN) | payer MEDICARE, BC, SELFPAY ==
[2018-09-22] VITALS (49 sets, daily range): BP systolic 124–150; BP diastolic 59–71; PULSE 78–97; RESP 14–18; TEMP 37.2–38.8; O2SAT 89–100
[2018-09-22 11:08] LABS: HGB 8.7 g/dL (13.5-17.5); Mean Corp. HGB Concentration 34.8 g/dL (32.0-36.0); Mean Corpuscular Hemoglobin 32.7 pg (27.0-33.0); Mean Platelet Volume 9.7 fL (8.0-11.0); RBC 2.66 m/cumm (4.50-6.00); RBC Distribution Width 12.2 % (11.8-14.1)
[2018-09-22 12:07] LABS: Platelet Count 17 x1000/uL (130-400)
[2018-09-22 12:08] LABS: Absolute Lymphocyte Count 0.16 k/cumm (1.2-3.4)
[2018-09-22 12:09] LABS: Absolute Monocyte Count 0.14 k/cumm (0.11-0.7)
[2018-09-22 12:10] LABS: Diff Comment Manual Differential; RBC Morphology Normal
--- NOTE | 2018-09-22 16:31 | DI.RAD_ITS ---
SYMPTOM/DIAGNOSIS: FEVER, ON CHEMO PA AND LATERAL CHEST: The examination is compared with previous examination of 09/20. The heart is at the upper limits of normal in size. On the PA film, there is some question of early patchy consolidation in both lung bases. Possible right upper lobe very early consolidation may also be present. No pleural effusion is seen. No pneumothorax. CONCLUSION: Question interval development of mild bibasilar patchy pneumonia since 09/20/18. Appropriate follow up films requested.
--- NOTE | 2018-09-22 16:39 | W.ED.GENAD ---
Discharge Plan Disposition Condition: Improving Discharge Details Chief Complaint: Fever Admit Date/Time: 09/22/18 19:37 Admit Provider: Rogers Haider Attending Provider: Rogers Haider Primary Care Provider: Sapna Ornelas ED Provider: Rufina Peterson Discharge Instructions Activity:: No Strenuous Activity Equipment/Supplies:: No Equipment Needed Diet:: Carb Counting Discharge Orders Discharge Orders: Discharge Order (Routine); Ordered 09/25/18 Ordered By: Juan Verduzco Discharge Data Discharge Date/Time-TO BE ENTERED AT DEPARTURE: 09/22/18 20:15 Medical Decision Making Gavin Roach is a 67 y/o man with history of coronary artery disease, insulin dependent diabetes, hypertension, high cholesterol, 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 On exam patient has well and nontoxic appearing. Scant ulcerations to the tongue. Benign cardiopulmonary exam. Benign abdominal exam. No clear apparent source of fever at this time. Patient does not have a port or other indwelling line, no apparent skin infection. Concern for likely neutropenic fever. Exam/history is not consistent with meningitis, sepsis, ACS, CVA. Plan for EKG, chest x-ray, UA, screening labs, IV fluid hydration, telemetry. Will start cefepime. Will hold vancomycin at this time as no apparent skin source. Patient is currently on acyclovir p.o., plan to continue. I discussed patient presentation and results with Dr. Yepez of oncology at [facility]. He recommended mouth ulcers be swabbed for possible CMV, continue p.o. acyclovir, continue cefepime, hold vancomycin unless fever continues to spike in the next 24 hours or skin source becomes apparent. Plan for admission to [facility], details of research consultant discussion and research consultant recommendations relayed to admitting hospitalist. Patient and his daughter amenable to the plan. Medical Records Medical records reviewed: Yes I reviewed the patient's medical records. Imaging Data Radiologic Study: Attestation: I personally reviewed and interpreted this imaging study as follows: Radiologist's impression: COMPARISON: CR XR CHEST 2V PA LATERAL 09/20/2018 12:13 PM FINDINGS: Lungs: There are minimal increased markings at both lung bases, increased from prior study. There appears to be some increased attenuation in the right upper lobe as well. Pleural space: Unremarkable. No pleural effusion. No pneumothorax. Heart/Mediastinum: No change cardiomegaly. Bones/joints: Old left rib fractures again seen. IMPRESSION: Probable mild bibasilar consolidation. Minimal right upper lobe involvement not excludable. Lab Data Lab results reviewed: Yes I reviewed the patient's lab results. ECG Data Attestation: I personally reviewed and interpreted this ECG (s) as follows: Interpretation: EKG shows sinus rhythm at 60 with occasional PAC, normal axis, septal Q waves and poor R wave progression, lateral ST depression, nondiagnostic EKG HPI General Mode of arrival: ambulatory. Date/Time Provider Initiated Documentation: 09/22/18 16:31. Limitations to Documentation: no limitations. Information obtained by: patient, family, RN notes reviewed and old records reviewed. HPI Narrative: Gavin Roach is a 67 y/o man with history of hypertension, high cholesterol, insulin dependent diabetes, coronary artery disease, AML diagnosed 04/04 presenting to the emergency department with fever. Patient reports that he had an extended inpatient stay at [facility] after being diagnosed with AML, during which he received intensive chemotherapy and also coded at one point, he is unclear what led to his cardiac arrest. Patient reports that he had a subsequent admission for neutropenic fever, with source thought to be a skin infection at his bone marrow biopsy site. Patient reports that his most recent chemo was September 04 through September 09. He had been feeling well subsequent to the chemo until 3 to 4 days ago, when he developed fatigue, mild malaise, generalized weakness. Patient had somewhat decreased p.o. intake and let him to feel dehydrated. He was here in the hospital receiving fluid infusion for dehydration on an outpatient basis when he was noted to have a fever and sent to the emergency department for work-up. Patient reports that he has mouth sores for which she has been taking acyclovir, but otherwise has no pain. Mouth sores have been present for approximately 1 week. He denies cough, shortness of breath, skin rash, vomiting, diarrhea, dysuria. Has been eating and drinking as usual prior to a few days ago. No recent travel. Related Data Home Medications Medication Instructions Recorded Confirmed aspirin [Aspir-81] 81 mg PO DAILY tab 11/13/12 09/22/18 cholecalciferol (vitamin D3) 1,000 unit PO BID 11/13/12 09/22/18 mometasone 1 bruno TOPICAL PRN PRN #45 gm 11/13/12 09/22/18 naproxen sodium [Aleve] 220 mg PO Q12H PRN 09/23/14 09/22/18 loperamide 2 mg PO QID PRN #30 tab-cap 07/21/15 09/22/18 cyanocobalamin (vitamin B-12) 1,000 mcg IJ 4w #3 vial 12/31/16 09/22/18 omeprazole 40 mg PO DAILY #90 tab-cap 11/10/17 09/22/18 probenecid 500 mg PO BID #180 tab-cap 11/10/17 09/22/18 triamcinolone acetonide 0.1 % 1 applic TP BID #30 gm 11/28/17 09/22/18 topical ointment white petrolatum 41 % topical 1 applic TP Q8H #99 gm 11/28/17 09/22/18 ointment acyclovir 400 mg tablet 400 mg PO BID tab 05/11/18 09/22/18 ascorbic acid (vitamin C) 1,000 mg 1,000 mg PO BID tab 05/11/18 09/22/18 tablet,extended release pen needle, diabetic 31 gauge x #30 each 05/11/18 07/03/1805/30 insulin lispro 100) 100 unit/mL See Rx Instructions SC AC #15 ml 05/15/18 09/22/18 subcutaneous pen sertraline 100 mg tablet 100 mg PO DAILY 05/15/18 09/22/18 blood sugar diagnostic #400 strip 05/25/18 07/03/18 lancets 28 gauge #400 each 05/25/18 07/03/18 insulin detemir U-100 100 unit/mL See Rx Instructions SUB-Q 06/22/18 09/22/18 (3 mL) subcutaneous pen DIRECTED ml metoprolol succinate 100 mg 100 mg PO DAILY 06/22/18 09/22/18 capsule sprinkle, ext. release 24 hr amlodipine 10 mg tablet 10 mg PO DAILY 06/23/18 09/22/18 furosemide 20 mg tablet 20 mg PO DAILY PRN 06/23/18 09/22/18 lisinopril 40 mg tablet 40 mg PO DAILY 06/23/18 09/22/18 gabapentin 300 mg capsule See Rx Instructions PO BID #360 07/08/18 09/22/18 tab-cap atorvastatin 80 mg tablet 80 mg PO DAILY 08/26/18 09/22/18 fluconazole 200 mg tablet 200 mg PO DAILY 08/31/18 09/22/18 levofloxacin 750 mg tablet 750 mg PO DAILY 09/11/18 09/22/18 nystatin 500,000 unit BC QID 10 Days #200 ml 09/20/18 09/22/18 amoxicillin-pot clavulanate 1 tab PO BID #5 tab 09/25/18 Previous Rx's Medication Instructions Recorded cyanocobalamin (vitamin B-12) 1,000 mcg IJ 4w #3 vial 12/31/16 omeprazole 40 mg PO DAILY #90 tab-cap 11/10/17 probenecid 500 mg PO BID #180 tab-cap 11/10/17 triamcinolone acetonide 0.1 % 1 applic TP BID #30 gm 11/28/17 topical ointment white petrolatum 41 % topical 1 applic TP Q8H #99 gm 11/28/17 ointment insulin lispro 100) 100 unit/mL See Rx Instructions SC AC #15 ml 05/15/18 subcutaneous pen blood sugar diagnostic #400 strip 05/25/18 lancets 28 gauge #400 each 05/25/18 gabapentin 300 mg capsule See Rx Instructions PO BID #360 07/08/18 tab-cap nystatin 500,000 unit BC QID 10 Days #200 ml 09/20/18 amoxicillin-pot clavulanate 1 tab PO BID #5 tab 09/25/18 Allergies Allergy/AdvReac Type Severity Reaction Status Date / Time oxycodone HCl [From Percocet] Allergy Intermediate hives Verified 09/22/18 16:09 sulfamethoxazole Allergy Intermediate hives Verified 09/22/18 16:09 [From Bactrim] trimethoprim [From Bactrim] Allergy Intermediate hives Verified 09/22/18 16:09 hydromorphone HCl Allergy Unknown rash Verified 09/22/18 16:09 [From Dilaudid] amoxicillin trihydrate AdvReac Intermediate C diff Verified 09/22/18 16:09 [From Augmentin] colitis codeine AdvReac Intermediate heart Verified 09/22/18 16:09 racing, N,V potassium clavulanate AdvReac Intermediate C diff Verified 09/22/18 16:09 [From Augmentin] colitis amiloride AdvReac Unknown increased Verified 09/22/18 16:09 K and decreased NA General Stated Complaint: Fever WES: 2 Review of Systems Review of Systems Constitutional: Reports shaking chills, denies fever Eyes: denies eye pain ENT: denies facial pain, dental pain, sore throat, reports mouth pain as above Cardiovascular: denies chest pain, edema Respiratory: denies SOB, cough GI: denies abdominal pain, vomiting, diarrhea : denies flank pain MSK: denies back pain, neck pain, arthralgias, myalgias Skin: denies rash Neuro: denies headaches, numbness, weakness [facility] Medical History AML (acute myeloid leukemia) (Acute) Benign neoplasm of colon (Inactive 04/04/14) Cervical radiculopathy (Chronic 01/27/15) Cervical spinal stenosis (Chronic 02/08/15) Disease related peripheral neuropathy (Chronic 01/14/13) Disorder of vitamin B12 (Chronic 01/14/13) Essential hypertension (Chronic 11/13/12) Gait abnormality (Chronic 11/13/12) HTN (hypertension) Hyperlipidemia (Chronic 11/13/12) Idiopathic gout (Chronic 12/16/14) Microalbuminuria (Chronic 09/23/14) Mitral valve insufficiency (Chronic 01/15/16) Mixed anxiety and depressive disorder (Chronic 11/13/12) Sensorineural hearing loss, asymmetrical (Chronic 11/13/12) Spinal stenosis Spinal stenosis of lumbar region (Chronic 11/13/12) Type 2 diabetes mellitus Type 2 diabetes mellitus with complication, with long-term current use of insulin (Chronic) Surgical History Anterior Lumbar interbody fusion (07/16/17) Colonoscopy - IV Sedation (04/04/14) H/O arthrodesis (Acute 02/15/15) H/O laminectomy (Acute Unknown) H/O vein stripping (Acute ~07/2006) S/P ACL repair (Acute ~02/1992) Family History Mother Dementia Father Heart disease Gout Tongue cancer Grandmother Heart disease Other Diabetes Rheumatoid arthritis Social History Smoking/Tobacco Use Status: Never Alcohol Intake: current Alcohol Intake frequency: holidays/special occasions only Drug use: Never Substance use type: does not use Adopted: No Number of Children: 1 current occupation: Counselor substance abuse Pets and animals: No What type of physical activity do you participate in: none Seatbelt use: always Working smoke detector in home: Yes Carbon monox detector in home: Yes Exam Narrative Exam Narrative: Constitutional: well and [id number], pleasant, conversing normally HENT: head atraumatic/normocephalic/normal inspection, mucous membranes moist, scant ulcerations to tip of tongue, lateral edges of tongue, normal posterior pharynx Eyes: conjunctiva normal, sclera normal, pupils 3mm b/l Neck: no stridor, normal ROM, trachea midline, well-healed midline surgical scars over posterior neck Chest: normal inspection Resp: normal work of breathing, LCTAB Cardio: normal rate, normal rhythm, no murmur appreciated GI: abdomen soft, non-tender, non-distended Back: normal inspection, no rash Skin: warm, dry, normal color, no rash Neuro: alert, not altered, grossly non-focal, normal tone Ext: no edema, no posterior calf tenderness to palpation Psych: normal mood, normal affect, normal behavior Course Vital Signs Temperature 37.4 C 09/22/18 16:04 Pulse 92 H 09/22/18 16:04 Respiratory Rate 17 09/22/18 16:04 Blood Pressure 150/59 H 09/22/18 16:04 Pulse Oximetry 100 09/22/18 16:04 Temperature 37.4 C 09/22/18 16:04 Temperature Source Skin 09/22/18 16:04 Pulse 92 H 09/22/18 16:04 Respiratory Rate 17 09/22/18 16:04 Respiratory Effort Non-Labored 09/22/18 16:04 Blood Pressure 150/59 H 09/22/18 16:04 Blood Pressure Position Sitting 09/22/18 16:04 Pulse Oximetry 100 09/22/18 16:04 Oxygen Delivery Method Room Air 09/22/18 16:04 Oxygen Flow Rate 0 09/22/18 16:04 Pain Level 0 09/22/18 16:04 Lab/Test Results Lab/Test Results: 09/22/18 16:08 Blood Blood Culture - Pending 09/22/18 16:08 Blood Blood Culture - Pending
[2018-09-22 16:53] LABS: HCT 24.5 % (40.0-50.0); HGB 8.4 g/dL (13.5-17.5); Mean Corp. HGB Concentration 34.3 g/dL (32.0-36.0); Mean Corpuscular Hemoglobin 32.3 pg (27.0-33.0); Mean Corpuscular Volume 94.2 fL (80-95); Mean Platelet Volume 10.9 fL (8.0-11.0); RBC Distribution Width 12.2 % (11.8-14.1)
[2018-09-22] MEDS: CEFEPIME 2 GM in Normal Saline 100 ML IVPB (16:57)
[2018-09-22 16:59] LABS: White Blood Cell Count 0.72 k/cumm (4.4-10.8)
[2018-09-22 17:01] LABS: Bilirubin Negative (Negative); Blood Negative (Negative); Clarity Clear (Clear); Glucose Negative (Negative); Ketones Negative (Negative); Leukocyte Esterase Negative (Negative); Nitrite Negative (Negative); Specific Gravity 1.015 (1.005-1.025); Urobilinogen 0.2 EU/dL (Up TO 0.2)
[2018-09-22 17:02] LABS: Platelet Count 19 x1000/uL (130-400)
[2018-09-22 17:12] LABS: Bacteria Rare HPF (Negative); Crystals Negative HPF (Negative); Epithelial Cells Rare HPF (Negative); Other Cells Rare Renal (Negative); RBC 0-2 (0-2); WBC 0-2 HPF (0-5)
[2018-09-22 17:13] LABS: C & S Indicated? No; Casts 0-2 Hyaline LPF (Negative); Mucus Negative (Negative)
[2018-09-22 17:14] LABS: Troponin I < 0.05 ng/mL (0.00-0.06)
[2018-09-22] MEDS: Acetaminophen 500 MG TAB 1000 MG PO (17:14)
[2018-09-22] MEDS: Magic Mouthwash 119 ML BTL 10 ML PO (17:15)
[2018-09-22 17:28] LABS: Lactate-non-spesis 1.4 mmol/l (0.6-1.4)
--- NOTE | 2018-09-22 17:32 | DI.VRAD_ITS ---
EXAM: XR Chest, 2 Views EXAM DATE/TIME: 09/22/2018 4:33 PM CLINICAL HISTORY: 67 years old, male; Fever TECHNIQUE: Imaging protocol: XR of the chest, 2 views. COMPARISON: CR XR CHEST 2V PA LATERAL 09/20/2018 12:13 PM FINDINGS: Lungs: There are minimal increased markings at both lung bases, increased from prior study. There appears to be some increased attenuation in the right upper lobe as well. Pleural space: Unremarkable. No pleural effusion. No pneumothorax. Heart/Mediastinum: No change cardiomegaly. Bones/joints: Old left rib fractures again seen. IMPRESSION: Probable mild bibasilar consolidation. Minimal right upper lobe involvement not excludable. COMMENT: Preliminary interpretation is based on receipt of 2 image(s). A final report will be issued subsequently. Dictated and Authenticated by: Juana Lamar MD. Ordering:BON Almaraz MD
[2018-09-22 17:43] LABS: NT-proBNP 1876 pg/mL
[2018-09-22 17:50] LABS: ALT 19 U/L (12-78); AST 12 U/L (15-37); Albumin 3.2 g/dL (3.4-5.0); Alkaline Phosphatase 108 U/L (46-116); Anion Gap 9.1 mmol/L (3-11); BUN 27 mg/dL (7-18); Bilirubin, Total 0.3 mg/dL (0.2-1.0); CO2 25.9 mmol/L (21.0-32.0); CREATININE 1.56 mg/dL (0.70-1.30); Calcium 8.8 mg/dL (8.5-10.1); Chloride 98 mmol/L (98-107); Estimated GFR 44.48 (mL/min/1.73m2); Glucose 181 mg/dL (70-100); Potassium 4.1 mmol/L (3.5-5.1); Sodium 133 mmol/L (136-145); Total Protein 7.4 g/dL (6.4-8.2)
--- NOTE | 2018-09-22 19:30 | HPE_ITS ---
Date of service: 09/22/18 Time of Service: 19:18 Assessment and Plan (1) Neutropenic fever: Current visit: Yes Status: Acute Neutropenic fever, pneumonia may well be source despite absence of s/s of such. Doubt oral lesions as source and will continue Acyclovir as is for now, but also await CMV studies. Will conttinue empiric Cefepime . Will track blood counts (note, have asked lab to add on ANC to ER labs). Several individual points: 1. Levaquin. On during periods of neutropenia. Will continue as is though would not appear to be covering current issue. 2. DM: not eating that well, will cut long acting by 50%, and cover with SS 3. Requests viscous lido for mouth 4. Reviewed Advance directives, requests full code. History of Present Illness Chief Complaint: fever Narrative: 67 male with AML, last chemo 09/04. Here with 1 week of malaise, fatigue, as well as a few mouth ulcers. In ER neutropenia was noted (0.72, no ANC, but ANC earlier today was zero). CXR shows bibasilar pneumonitis (patient denies cough, CP, SOB). ER reviewed case wwith Oncology, advised Cefepime. Patient given initial dosee and admitted for further evaluation. As to mouth ulcers, patient on prophylactic Acyclovir, cxx obtained to r/o CMV. Review of Systems Review of Systems All systems reviewed & are unremarkable except as noted in HPI and below PFSH Medical History Type 2 diabetes mellitus with complication, with long-term current use of insulin (Chronic) Spinal stenosis of lumbar region (Chronic 11/13/12) Sensorineural hearing loss, asymmetrical (Chronic 11/13/12) Mixed anxiety and depressive disorder (Chronic 11/13/12) Mitral valve insufficiency (Chronic 01/15/16) Microalbuminuria (Chronic 09/23/14) Idiopathic gout (Chronic 12/16/14) Hyperlipidemia (Chronic 11/13/12) Gait abnormality (Chronic 11/13/12) Essential hypertension (Chronic 11/13/12) Disorder of vitamin B12 (Chronic 01/14/13) Disease related peripheral neuropathy (Chronic 01/14/13) Cervical spinal stenosis (Chronic 02/08/15) Cervical radiculopathy (Chronic 01/27/15) Benign neoplasm of colon (Inactive 04/04/14) AML (acute myeloid leukemia) (Acute) HTN (hypertension) Spinal stenosis Type 2 diabetes mellitus Surgical History H/O arthrodesis (Acute 02/15/15) H/O laminectomy (Acute Unknown) H/O vein stripping (Acute ~07/2006) S/P ACL repair (Acute ~02/1992) Anterior Lumbar interbody fusion (07/16/17) Colonoscopy - IV Sedation (04/04/14) Family History Mother Dementia Father Heart disease Gout Tongue cancer Grandmother Heart disease Other Diabetes Rheumatoid arthritis Social History Smoking/Tobacco Use Status: Never Alcohol Intake: current Alcohol Intake frequency: holidays/special occasions only Drug use: Never Substance use type: does not use Adopted: No Number of Children: 1 current occupation: Counselor substance abuse Pets and animals: No What type of physical activity do you participate in: none Seatbelt use: always Working smoke detector in home: Yes Carbon monox detector in home: Yes Meds Home Medications Medication Instructions Recorded Confirmed Type aspirin [Aspir-81] 81 mg PO DAILY tab 11/13/12 09/22/18 History cholecalciferol (vitamin D3) 1,000 unit PO BID 11/13/12 09/22/18 History mometasone 1 bruno TOPICAL PRN PRN #45 gm 11/13/12 09/22/18 History naproxen sodium [Aleve] 220 mg PO Q12H PRN 09/23/14 09/22/18 History loperamide 2 mg PO QID PRN #30 tab-cap 07/21/15 09/22/18 History cyanocobalamin (vitamin B-12) 1,000 mcg IJ 4w #3 vial 12/31/16 09/22/18 Rx omeprazole 40 mg PO DAILY #90 tab-cap 11/10/17 09/22/18 Rx probenecid 500 mg PO BID #180 tab-cap 11/10/17 09/22/18 Rx triamcinolone acetonide 0.1 % 1 applic TP BID #30 gm 11/28/17 09/22/18 Rx topical ointment white petrolatum 41 % topical 1 applic TP Q8H #99 gm 11/28/17 09/22/18 Rx ointment acyclovir 400 mg tablet 400 mg PO BID tab 05/11/18 09/22/18 History ascorbic acid (vitamin C) ER 1,000 1,000 mg PO BID tab 05/11/18 09/22/18 History mg tablet,extended release pen needle, diabetic 31 gauge x #30 each 05/11/18 07/03/18 History 05/30 insulin lispro (U- 100) 100 See Rx Instructions SC AC #15 ml 05/15/18 09/22/18 Rx unit/mL subcutaneous pen sertraline 100 mg tablet 100 mg PO DAILY 05/15/18 09/22/18 History blood sugar diagnostic strips #400 strip 05/25/18 07/03/18 Rx lancets 28 gauge #400 each 05/25/18 07/03/18 Rx insulin detemir (U-100) 100 See Rx Instructions SUB-Q 06/22/18 09/22/18 History unit/mL (3 mL) subcutaneous pen DIRECTED ml metoprolol succinate ER 100 mg 100 mg PO DAILY 06/22/18 09/22/18 History capsule sprinkle, ext. release 24 hr amlodipine 10 mg tablet 10 mg PO DAILY 06/23/18 09/22/18 History furosemide 20 mg tablet 20 mg PO DAILY PRN 06/23/18 09/22/18 History lisinopril 40 mg tablet 40 mg PO DAILY 06/23/18 09/22/18 History gabapentin 300 mg capsule See Rx Instructions PO BID #360 07/08/18 09/22/18 Rx tab-cap atorvastatin 80 mg tablet 80 mg PO DAILY 08/26/18 09/22/18 History fluconazole 200 mg tablet 200 mg PO DAILY 08/31/18 09/22/18 History levofloxacin 750 mg tablet 750 mg PO DAILY 09/11/18 09/22/18 History nystatin 500,000 unit BC QID 10 Days #200 ml 09/20/18 09/22/18 Rx Allergies Allergy/AdvReac Type Severity Reaction Status Date / Time oxycodone HCl [From Percocet] Allergy Intermediate hives Verified 09/22/18 16:09 sulfamethoxazole Allergy Intermediate hives Verified 09/22/18 16:09 [From Bactrim] trimethoprim [From Bactrim] Allergy Intermediate hives Verified 09/22/18 16:09 hydromorphone HCl Allergy Unknown rash Verified 09/22/18 16:09 [From Dilaudid] amoxicillin trihydrate AdvReac Intermediate C diff Verified 09/22/18 16:09 [From Augmentin] colitis codeine AdvReac Intermediate heart Verified 09/22/18 16:09 racing, N,V potassium clavulanate AdvReac Intermediate C diff Verified 09/22/18 16:09 [From Augmentin] colitis amiloride AdvReac Unknown increased Verified 09/22/18 16:09 K and decreased NA Exam Narrative Exam Narrative: 131/64, 80, 17, 38.8. HEENT two punctate aphthous ulcers noted along right lateral marrgin of tongue; neck supple; lungs clear; heart RRR w/o MRG; abdomen soft NT w/o HSM; /rectal deferred; extr no edema; neuro Ox3, non- focal; skin no rash or lesions noted Results Labs : 09/22/18 16:07 09/22/18 16:07 Laboratory Results - last 24 hr 09/22/18 09/22/18 09/22/18 16:07 16:07 16:07 WBC 0.72 L* D RBC 2.60 L Hgb 8.4 L Hct 24.5 L MCV 94.2 MCH 32.3 MCHC 34.3 RDW 12.2 Plt Count 19 L* MPV 10.9 Sodium 133 L Potassium 4.1 Chloride 98 Carbon Dioxide 25.9 Anion Gap 9.1 BUN 27 H Creatinine 1.56 H Estimated GFR/1.73 m2 44.48 Glucose 181 H Lactate Calcium 8.8 Total Bilirubin 0.3 AST 12 L ALT 19 Alkaline Phosphatase 108 Troponin I < 0.05 NT-Pro-B Natriuret Pep 1876 H Total Protein 7.4 Albumin 3.2 L TSH Free T4 Urine Color Urine Clarity Urine pH Ur Specific [place] Urine Protein Urine Ketones Urine Blood Urine Nitrite Urine Bilirubin Urine Urobilinogen Ur Leukocyte Esterase Urine RBC Urine WBC Ur Epithelial Cells Urine Crystals Urine Bacteria Urine Casts Urine Mucus Urine Other Ur Culture Indicated? Urine Glucose 09/22/18 09/22/18 09/22/18 16:45 16:57 17:22 WBC RBC Hgb Hct MCV MCH MCHC RDW Plt Count MPV Sodium Potassium Chloride Carbon Dioxide Anion Gap BUN Creatinine Estimated GFR/1.73 m2 Glucose Lactate 1.4 Calcium Total Bilirubin AST ALT Alkaline Phosphatase Troponin I NT-Pro-B Natriuret Pep Total Protein Albumin TSH Free T4 0.70 L Urine Color Yellow Urine Clarity Clear Urine pH 6.0 Ur Specific [place] 1.015 Urine Protein 100 H Urine Ketones Negative Urine Blood Negative Urine Nitrite Negative Urine Bilirubin Negative Urine Urobilinogen 0.2 Ur Leukocyte Esterase Negative Urine RBC 0-2 Urine WBC 0-2 Ur Epithelial Cells Rare Urine Crystals Negative Urine Bacteria Rare Urine Casts 0-2 hyaline Urine Mucus Negative Urine Other Rare renal Ur Culture Indicated? No Urine Glucose Negative Last Vital Signs Temp 38.8 C H 09/22/18 17:14 Pulse 83 09/22/18 18:31 Resp 17 09/22/18 16:40 BP 137/59 L 09/22/18 18:31 Pulse Ox 93 L 09/22/18 18:40
[2018-09-22 20:14] LABS: Absolute Lymphocyte Count 0.41 k/cumm (1.2-3.4); Absolute Monocyte Count 0.28 k/cumm (0.11-0.7); Atypical Lymphocytes % 0
[2018-09-22 20:18] LABS: Absolute Neutrophil Count 0.03 k/cumm (1.2-6.7)
[2018-09-22 20:22] LABS: Diff Comment Manual Differential; RBC Morphology Normal
--- NOTE | 2018-09-22 21:45 | NUR.NOTE ---
Nursing Note: Pt is AO x 3. admitted in Rm..206, Has difficulty in swallowing food due to sore mouth, tongue checked with lots of blister like on both sides. FS was 372, pt reported because of ensure 2 cans taken in ER. Voided and ambulates to toilet with minimal assist, remains weak but no dizziness verbalized. Oriented to call lights system.
[2018-09-22] MEDS: Insulin Aspart 300 UNITS/3 ML PEN SC (22:07)
[2018-09-22] MEDS: Cholecalciferol (Vitamin D3) 1,000 UNIT TAB 1000 UNITS PO (22:11)
[2018-09-22] MEDS: Ascorbic Acid 500 MG TAB 1000 MG PO (22:11)
[2018-09-22] MEDS: Nystatin 500000 UNITS/5 ML SUSP 5ML CUP PO (22:11)
[2018-09-22] MEDS: Gabapentin 300 MG CAP 900 MG PO (22:12)
[2018-09-22] MEDS: Acyclovir 400 MG TAB PO (22:33)
[2018-09-22] MEDS: Acetaminophen 325 MG TAB 650 MG PO (23:14)
[2018-09-23] VITALS (7 sets, daily range): BP systolic 106–129; BP diastolic 60–68; PULSE 70–86; RESP 14–17; TEMP 36.8–39; O2SAT 95–100
[2018-09-23] MEDS: CEFEPIME 2 GM in Normal Saline 100 ML IVPB ×2 (03:46→16:14)
[2018-09-23] MEDS: Normal Saline Flush 10 ML SYR IVP ×3 (03:47→19:54)
[2018-09-23] MEDS: Acetaminophen 325 MG TAB 650 MG PO ×3 (06:49→22:06)
[2018-09-23 07:21] LABS: HCT 22.9 % (40.0-50.0); HGB 7.9 g/dL (13.5-17.5); Mean Corp. HGB Concentration 34.5 g/dL (32.0-36.0); Mean Corpuscular Hemoglobin 32.5 pg (27.0-33.0); Mean Corpuscular Volume 94.2 fL (80-95); Mean Platelet Volume 10.7 fL (8.0-11.0); RBC 2.43 m/cumm (4.50-6.00); RBC Distribution Width 12.2 % (11.8-14.1)
--- NOTE | 2018-09-23 07:25 | W.PM.PROGNOT ---
Date of Service Date of service: 09/23/18 Time of Service: 14:33 Assessment and Plan (1) Pancytopenia: Current visit: Yes Status: Acute (2) Neutropenic fever: Current visit: Yes Status: Acute With likely pulmonary source. Initiated on Cefepime in the ED. Given hospitalization last month, immunosuppression, and evidence of likely pneumonia will broaden with addition of Vancomycin. Continue Vanc/Cefepime day #1, monitor blood cultures, check sputum cultures if possible, and monitor temperature/vitals. (3) Acute myeloid leukemia: Current visit: No Status: Acute Undergoing Chemotherapy at [facility]. Current Pancytopenia following last round of chemo, with current and prior history of Neutropenic Fever. - ANC / WBC improving. Continue to monitor. - Antibiotics and treatment of pneumonia as above. - Per discussion with Hematology, aim for transfusion for platelet count <10, Hgb 7-8. 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 Will ensure home dosing, cover with sliding scale, and monitor closely. Continue ADA diet. (5) Essential hypertension: Current visit: No Status: Chronic Continue ANTONIA-I, BB, CCB - monitor blood pressure carefully. Consider holding ANTONIA-I if Creatinine worsens. (6) DVT prophylaxis: Current visit: Yes Status: Acute Chemical Prophylaxis contraindicated given significant Thrombocytopenia. Ensure SCDs, TEDs. (7) Advance directive on file: Current visit: Yes Status: Acute Full Code. Subjective Interval history since last seen: 67 year old man with a prior history of AML on Chemotherapy, admitted 09/22 from [facility] Emergency Department with a diagnosis of Neutropenic Fever. Mr. Roach has a Past Medical History significant for AML on Chemo, followed chronically at [facility] Heme/Onc. His other history includes Type 2 DM, HTN, Dyslipidemia, CAD with hx of NSTEMI, and Spinal Stenosis with peripheral neuropathy and Foot Drop. He underwent Induction therapy in March of 2018, complicated by VFib arrest. 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 The patient was originally seen in the Emergency Department on 09/20 and diagnosed with potential oral candidiasis and dehydration, and sent home following IVFs and prescription of topical antifungal therapy. He was also scheduled for fluid infusion, and at time of his infusion was noted to be febrile. As the patient was known to be neutropenic following his chemotherapy he was referred to the ED for further work-up and likely admission. Labwork showed evidence of pancytopenia with Neutropenia, creatinine at the upper limits of his baseline, negative urinalysis, CXR performed showed evidence of infiltrates, and given some ulcerations in the mouth he was swabbed for potential CMV. He was initiated on Cefepime and admitted for further evaluation and treatment. Mr. Roach continued to be febrile the morning after admission. Given his diagnosis of pneumonia, neutropenia, and hospitalization last month at [facility] Vancomycin was added to his regimen. By this afternoon the patient appears improved and subjectively feels better, with a drop in his temperature to normal. No other events reported. Exam Narrative Exam Narrative: General: Patient appears comfortable, AAOX3, NAD Neck: Supple CV: Regular, nontachycardic, S1S2, No rubs, murmurs, or gallops. Pulmonary: Remarkably Clear to auscultation bilaterally, no crackles, wheezing, or rhonchi Abdomen: + Bowel Sounds, soft, nontender, nondistended Vascular: No lower extremity edema Psych: Normal mood and affect. Objective Objective Clinical Data: Abnormal lab results 09/22/18 09/22/18 09/22/18 Range/Units 16:07 16:07 16:07 WBC 0.72 L* D (4.4-10.8) k/cumm RBC 2.60 L (4.50-6.00) m/cumm Hgb 8.4 L (13.5-17.5) g/dL Hct 24.5 L (40.0-50.0) % Plt Count 19 L* (130-400) x1000/uL Absolute Neutrophils 0.03 L* (1.2-6.7) k/cumm Absolute Lymphocytes 0.41 L (1.2-3.4) k/cumm Sodium 133 L (136-145) mmol/L BUN 27 H (7-18) mg/dL Creatinine 1.56 H (0.70-1.30) mg/dL Glucose 181 H (70-100) mg/dL AST 12 L (15-37) U/L NT-Pro-B Natriuret Pep 1876 H ( - 299) pg/mL Albumin 3.2 L (3.4-5.0) g/dL Free T4 (0.76-1.46) ng/dL Urine Protein (Negative) mg/dL 09/22/18 09/22/18 Range/Units 16:45 16:57 WBC (4.4-10.8) k/cumm RBC (4.50-6.00) m/cumm Hgb (13.5-17.5) g/dL Hct (40.0-50.0) % Plt Count (130-400) x1000/uL Absolute Neutrophils (1.2-6.7) k/cumm Absolute Lymphocytes (1.2-3.4) k/cumm Sodium (136-145) mmol/L BUN (7-18) mg/dL Creatinine (0.70-1.30) mg/dL Glucose (70-100) mg/dL AST (15-37) U/L NT-Pro-B Natriuret Pep ( - 299) pg/mL Albumin (3.4-5.0) g/dL Free T4 0.70 L (0.76-1.46) ng/dL Urine Protein 100 H (Negative) mg/dL Vital Signs Temperature 39.0 C H 09/23/18 06:49 Temperature Source Tympanic 09/22/18 23:32 Pulse 80 09/22/18 23:32 Pulse Rhythm Regular 09/22/18 20:45 Pulse 80 09/22/18 20:01 Respiratory Rate 18 09/22/18 23:32 Respiratory Effort Non-Labored 09/22/18 20:45 Respiratory Depth Normal 09/22/18 20:45 Respiratory Pattern Normal 09/22/18 20:45 Blood Pressure 127/64 09/22/18 23:32 Blood Pressure Mean 80 09/22/18 20:01 Blood Pressure Position Sitting 09/22/18 16:04 Pulse Oximetry 96 09/22/18 23:32 Oxygen Delivery Method Room Air 09/22/18 23:32 Oxygen Flow Rate 0 09/22/18 23:32 Pain Level 0 09/23/18 00:14 Comment 09/23/18 06:15 Intake & Output 09/22/18 09/22/18 09/23/18 11:59 23:59 11:59 Intake Total 100 / 100 100 / 100 Output Total 850 / 850 Balance -750 / -750 100 / 100 Weight 81.7 kg Intake: IV 100 / 100 100 / 100 Output: Urine 850 / 850 Other: Urine Color Yellow Urine Appearance Clear Urine Odor Normal Comment pt flushed before i could record urine output Voiding Methods Toilet Toilet Laboratory Results WBC 0.72 k/cumm (4.4-10.8) L* D 09/22/18 16:07 RBC 2.60 m/cumm (4.50-6.00) L 09/22/18 16:07 Hgb 8.4 g/dL (13.5-17.5) L 09/22/18 16:07 Hct 24.5 % (40.0-50.0) L 09/22/18 16:07 MCV 94.2 fL (80-95) 09/22/18 16:07 MCH 32.3 pg (27.0-33.0) 09/22/18 16:07 MCHC 34.3 g/dL (32.0-36.0) 09/22/18 16:07 RDW 12.2 % (11.8-14.1) 09/22/18 16:07 Plt Count 19 x1000/uL (130-400) L* 09/22/18 16:07 MPV 10.9 fL (8.0-11.0) 09/22/18 16:07 Immature Gran % See Differential 09/22/18 16:07 Neutrophils % 2.0 09/22/18 16:07 Band Neutrophils % 2.0 % 09/22/18 16:07 Lymphocytes % 57.0 09/22/18 16:07 Atypical Lymphs % 0 09/22/18 16:07 Monocytes % 39.0 09/22/18 16:07 Eosinophils % 0.0 09/22/18 16:07 Basophils % 0.0 09/22/18 16:07 Metamyelocytes % Cancelled 09/22/18 16:07 Myelocytes % Cancelled 09/22/18 16:07 Promyelocytes % Cancelled 09/22/18 16:07 Absolute Neutrophils 0.03 k/cumm (1.2-6.7) L* 09/22/18 16:07 Absolute Lymphocytes 0.41 k/cumm (1.2-3.4) L 09/22/18 16:07 Absolute Monocytes 0.28 k/cumm (0.11-0.7) 09/22/18 16:07 Absolute Eosinophils 0.00 k/cumm (0.0-0.7) 09/22/18 16:07 Absolute Basophils 0.00 k/cumm (0.0-0.2) 09/22/18 16:07 Nucleated RBCs Cancelled 09/22/18 16:07 Differential Comment Manual differential 09/22/18 16:07 Other Cell Type Cancelled 09/22/18 16:07 RBC Morphology Normal 09/22/18 16:07 Polychromasia Cancelled 09/22/18 16:07 Hypochromasia Cancelled 09/22/18 16:07 Poikilocytosis Cancelled 09/22/18 16:07 Basophilic Stippling Cancelled 09/22/18 16:07 Anisocytosis Cancelled 09/22/18 16:07 Microcytosis Cancelled 09/22/18 16:07 Macrocytosis Cancelled 09/22/18 16:07 Spherocytes Cancelled 09/22/18 16:07 Target Cells Cancelled 09/22/18 16:07 Tear Drop Cells Cancelled 09/22/18 16:07 Ovalocytes Cancelled 09/22/18 16:07 Stomatocytes Cancelled 09/22/18 16:07 [place] Bodies Cancelled 09/22/18 16:07 [place] Cells Cancelled 09/22/18 16:07 Acanthocytes (Spur) Cancelled 09/22/18 16:07 Schistocytes Cancelled 09/22/18 16:07 Sodium 133 mmol/L (136-145) L 09/22/18 16:07 Potassium 4.1 mmol/L (3.5-5.1) 09/22/18 16:07 Chloride 98 mmol/L (98-107) 09/22/18 16:07 Carbon Dioxide 25.9 mmol/L (21.0-32.0) 09/22/18 16:07 Anion Gap 9.1 mmol/L (3-11) 09/22/18 16:07 BUN 27 mg/dL (7-18) H 09/22/18 16:07 Creatinine 1.56 mg/dL (0.70-1.30) H 09/22/18 16:07 Estimated GFR/1.73 m2 44.48 (mL/min/1.73m2) 09/22/18 16:07 Glucose 181 mg/dL (70-100) H 09/22/18 16:07 Lactate 1.4 mmol/l (0.6-1.4) 09/22/18 17:22 Calcium 8.8 mg/dL (8.5-10.1) 09/22/18 16:07 Total Bilirubin 0.3 mg/dL (0.2-1.0) 09/22/18 16:07 AST 12 U/L (15-37) L 09/22/18 16:07 ALT 19 U/L (12-78) 09/22/18 16:07 Alkaline Phosphatase 108 U/L (46-116) 09/22/18 16:07 Troponin I < 0.05 ng/mL (0.00-0.06) 09/22/18 16:07 NT-Pro-B Natriuret Pep 1876 pg/mL (-299) H 09/22/18 16:07 Total Protein 7.4 g/dL (6.4-8.2) 09/22/18 16:07 Albumin 3.2 g/dL (3.4-5.0) L 09/22/18 16:07 TSH uIU/mL (0.358-3.74) 09/22/18 16:45 Free T4 0.70 ng/dL (0.76-1.46) L 09/22/18 16:45 Urine Color Yellow (Yellow) 09/22/18 16:57 Urine Clarity Clear (Clear) 09/22/18 16:57 Urine pH 6.0 (5-8) 09/22/18 16:57 Ur Specific [place] 1.015 (1.005-1.025) 09/22/18 16:57 Urine Protein 100 mg/dL (Negative) H 09/22/18 16:57 Urine Ketones Negative mg/dL (Negative) 09/22/18 16:57 Urine Blood Negative (Negative) 09/22/18 16:57 Urine Nitrite Negative (Negative) 09/22/18 16:57 Urine Bilirubin Negative (Negative) 09/22/18 16:57 Urine Urobilinogen 0.2 EU/dL (Up TO 0.2) 09/22/18 16:57 Ur Leukocyte Esterase Negative (Negative) 09/22/18 16:57 Urine RBC 0-2 (0-2) 09/22/18 16:57 Urine WBC 0-2 HPF (0-5) 09/22/18 16:57 Ur Epithelial Cells Rare HPF (Negative) 09/22/18 16:57 Urine Crystals Negative HPF (Negative) 09/22/18 16:57 Urine Bacteria Rare HPF (Negative) 09/22/18 16:57 Urine Casts 0-2 hyaline LPF (Negative) 09/22/18 16:57 Urine Mucus Negative (Negative) 09/22/18 16:57 Urine Other Rare renal (Negative) 09/22/18 16:57 Ur Culture Indicated? No 09/22/18 16:57 Urine Glucose Negative mg/dL (Negative) 09/22/18 16:57
--- NOTE | 2018-09-23 07:30 | PGE_ITS ---
Date of Service Date of service: 09/23/18 Time of Service: 14:33 Assessment and Plan (1) Pancytopenia: Current visit: Yes Status: Acute (2) Neutropenic fever: Current visit: Yes Status: Acute With likely pulmonary source. Initiated on Cefepime in the ED. Given hospitalization last month, immunosuppression, and evidence of likely pneumonia will broaden with addition of Vancomycin. Continue Vanc/Cefepime day #1, monitor blood cultures, check sputum cultures if possible, and monitor temperature/vitals. (3) Acute myeloid leukemia: Current visit: No Status: Acute Undergoing Chemotherapy at [facility] [place] [place]. Current Pancytopenia following last round of chemo, with current and prior history of Neutropenic Fever. - ANC / WBC improving. Continue to monitor. - Antibiotics and treatment of pneumonia as above. - Per discussion with Hematology, aim for transfusion for platelet count <10, Hgb 7-8. 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 Will ensure home dosing, cover with sliding scale, and monitor closely. Continue ADA diet. (5) Essential hypertension: Current visit: No Status: Chronic Continue ANTONIA-I, BB, CCB - monitor blood pressure carefully. Consider holding ANTONIA-I if Creatinine worsens. (6) DVT prophylaxis: Current visit: Yes Status: Acute Chemical Prophylaxis contraindicated given significant Thrombocytopenia. Ensure SCDs, TEDs. (7) Advance directive on file: Current visit: Yes Status: Acute Full Code. Subjective Interval history since last seen: 67 year old man with a prior history of AML on Chemotherapy, admitted 09/22 from [facility] Emergency Department with a diagnosis of Neutropenic Fever. Mr. Roach has a Past Medical History significant for AML on Chemo, followed chronically at [facility] [place] [place] Heme/Onc. His other history includes Type 2 DM, HTN, Dyslipidemia, CAD with hx of NSTEMI, and Spinal Stenosis with peripheral neuropathy and Foot Drop. He underwent Induction therapy in March of 2018, complicated by VFib arrest. 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 The patient was originally seen in the Emergency Department on 09/20 and diagnosed with potential oral candidiasis and dehydration, and sent home following IVFs and prescription of topical antifungal therapy. He was also scheduled for fluid infusion, and at time of his infusion was noted to be febrile. As the patient was known to be neutropenic following his chemotherapy he was referred to the ED for further work-up and likely admission. Labwork showed evidence of pancytopenia with Neutropenia, creatinine at the upper limits of his baseline, negative urinalysis, CXR performed showed evidence of infiltrates, and given some ulcerations in the mouth he was swabbed for potential CMV. He was initiated on Cefepime and admitted for further evaluation and treatment. Mr. Roach continued to be febrile the morning after admission. Given his diagnosis of pneumonia, neutropenia, and hospitalization last month at [facility] [place] [place] Vancomycin was added to his regimen. By this afternoon the patient appears improved and subjectively feels better, with a drop in his temperature to normal. No other events reported. Exam Narrative Exam Narrative: General: Patient appears comfortable, AAOX3, NAD Neck: Supple CV: Regular, nontachycardic, S1S2, No rubs, murmurs, or gallops. Pulmonary: Remarkably Clear to auscultation bilaterally, no crackles, wheezing, or rhonchi Abdomen: + Bowel Sounds, soft, nontender, nondistended Vascular: No lower extremity edema Psych: Normal mood and affect. Objective Objective Clinical Data: Abnormal lab results 09/22/18 09/22/18 09/22/18 Range/Units 16:07 16:07 16:07 WBC 0.72 L* D (4.4-10.8) k/cumm RBC 2.60 L (4.50-6.00) m/cumm Hgb 8.4 L (13.5-17.5) g/dL Hct 24.5 L (40.0-50.0) % Plt Count 19 L* (130-400) x1000/uL Absolute Neutrophils 0.03 L* (1.2-6.7) k/cumm Absolute Lymphocytes 0.41 L (1.2-3.4) k/cumm Sodium 133 L (136-145) mmol/L BUN 27 H (7-18) mg/dL Creatinine 1.56 H (0.70-1.30) mg/dL Glucose 181 H (70-100) mg/dL AST 12 L (15-37) U/L NT-Pro-B Natriuret Pep 1876 H ( - 299) pg/mL Albumin 3.2 L (3.4-5.0) g/dL Free T4 (0.76-1.46) ng/dL Urine Protein (Negative) mg/dL 09/22/18 09/22/18 Range/Units 16:45 16:57 WBC (4.4-10.8) k/cumm RBC (4.50-6.00) m/cumm Hgb (13.5-17.5) g/dL Hct (40.0-50.0) % Plt Count (130-400) x1000/uL Absolute Neutrophils (1.2-6.7) k/cumm Absolute Lymphocytes (1.2-3.4) k/cumm Sodium (136-145) mmol/L BUN (7-18) mg/dL Creatinine (0.70-1.30) mg/dL Glucose (70-100) mg/dL AST (15-37) U/L NT-Pro-B Natriuret Pep ( - 299) pg/mL Albumin (3.4-5.0) g/dL Free T4 0.70 L (0.76-1.46) ng/dL Urine Protein 100 H (Negative) mg/dL Vital Signs Temperature 39.0 C H 09/23/18 06:49 Temperature Source Tympanic 09/22/18 23:32 Pulse 80 09/22/18 23:32 Pulse Rhythm Regular 09/22/18 20:45 Pulse 80 09/22/18 20:01 Respiratory Rate 18 09/22/18 23:32 Respiratory Effort Non-Labored 09/22/18 20:45 Respiratory Depth Normal 09/22/18 20:45 Respiratory Pattern Normal 09/22/18 20:45 Blood Pressure 127/64 09/22/18 23:32 Blood Pressure Mean 80 09/22/18 20:01 Blood Pressure Position Sitting 09/22/18 16:04 Pulse Oximetry 96 09/22/18 23:32 Oxygen Delivery Method Room Air 09/22/18 23:32 Oxygen Flow Rate 0 09/22/18 23:32 Pain Level 0 09/23/18 00:14 Comment 09/23/18 06:15 Intake & Output 09/22/18 09/22/18 09/23/18 11:59 23:59 11:59 Intake Total 100 / 100 100 / 100 Output Total 850 / 850 Balance -750 / -750 100 / 100 Weight 81.7 kg Intake: IV 100 / 100 100 / 100 Output: Urine 850 / 850 Other: Urine Color Yellow Urine Appearance Clear Urine Odor Normal Comment pt flushed before i could record urine output Voiding Methods Toilet Toilet Laboratory Results WBC 0.72 k/cumm (4.4-10.8) L* D 09/22/18 16:07 RBC 2.60 m/cumm (4.50-6.00) L 09/22/18 16:07 Hgb 8.4 g/dL (13.5-17.5) L 09/22/18 16:07 Hct 24.5 % (40.0-50.0) L 09/22/18 16:07 MCV 94.2 fL (80-95) 09/22/18 16:07 MCH 32.3 pg (27.0-33.0) 09/22/18 16:07 MCHC 34.3 g/dL (32.0-36.0) 09/22/18 16:07 RDW 12.2 % (11.8-14.1) 09/22/18 16:07 Plt Count 19 x1000/uL (130-400) L* 09/22/18 16:07 MPV 10.9 fL (8.0-11.0) 09/22/18 16:07 Immature Gran % See Differential 09/22/18 16:07 Neutrophils % 2.0 09/22/18 16:07 Band Neutrophils % 2.0 % 09/22/18 16:07 Lymphocytes % 57.0 09/22/18 16:07 Atypical Lymphs % 0 09/22/18 16:07 Monocytes % 39.0 09/22/18 16:07 Eosinophils % 0.0 09/22/18 16:07 Basophils % 0.0 09/22/18 16:07 Metamyelocytes % Cancelled 09/22/18 16:07 Myelocytes % Cancelled 09/22/18 16:07 Promyelocytes % Cancelled 09/22/18 16:07 Absolute Neutrophils 0.03 k/cumm (1.2-6.7) L* 09/22/18 16:07 Absolute Lymphocytes 0.41 k/cumm (1.2-3.4) L 09/22/18 16:07 Absolute Monocytes 0.28 k/cumm (0.11-0.7) 09/22/18 16:07 Absolute Eosinophils 0.00 k/cumm (0.0-0.7) 09/22/18 16:07 Absolute Basophils 0.00 k/cumm (0.0-0.2) 09/22/18 16:07 Nucleated RBCs Cancelled 09/22/18 16:07 Differential Comment Manual differential 09/22/18 16:07 Other Cell Type Cancelled 09/22/18 16:07 RBC Morphology Normal 09/22/18 16:07 Polychromasia Cancelled 09/22/18 16:07 Hypochromasia Cancelled 09/22/18 16:07 Poikilocytosis Cancelled 09/22/18 16:07 Basophilic Stippling Cancelled 09/22/18 16:07 Anisocytosis Cancelled 09/22/18 16:07 Microcytosis Cancelled 09/22/18 16:07 Macrocytosis Cancelled 09/22/18 16:07 Spherocytes Cancelled 09/22/18 16:07 Target Cells Cancelled 09/22/18 16:07 Tear Drop Cells Cancelled 09/22/18 16:07 Ovalocytes Cancelled 09/22/18 16:07 Stomatocytes Cancelled 09/22/18 16:07 [place] Bodies Cancelled 09/22/18 16:07 [place] Cells Cancelled 09/22/18 16:07 Acanthocytes (Spur) Cancelled 09/22/18 16:07 Schistocytes Cancelled 09/22/18 16:07 Sodium 133 mmol/L (136-145) L 09/22/18 16:07 Potassium 4.1 mmol/L (3.5-5.1) 09/22/18 16:07 Chloride 98 mmol/L (98-107) 09/22/18 16:07 Carbon Dioxide 25.9 mmol/L (21.0-32.0) 09/22/18 16:07 Anion Gap 9.1 mmol/L (3-11) 09/22/18 16:07 BUN 27 mg/dL (7-18) H 09/22/18 16:07 Creatinine 1.56 mg/dL (0.70-1.30) H 09/22/18 16:07 Estimated GFR/1.73 m2 44.48 (mL/min/1.73m2) 09/22/18 16:07 Glucose 181 mg/dL (70-100) H 09/22/18 16:07 Lactate 1.4 mmol/l (0.6-1.4) 09/22/18 17:22 Calcium 8.8 mg/dL (8.5-10.1) 09/22/18 16:07 Total Bilirubin 0.3 mg/dL (0.2-1.0) 09/22/18 16:07 AST 12 U/L (15-37) L 09/22/18 16:07 ALT 19 U/L (12-78) 09/22/18 16:07 Alkaline Phosphatase 108 U/L (46-116) 09/22/18 16:07 Troponin I < 0.05 ng/mL (0.00-0.06) 09/22/18 16:07 NT-Pro-B Natriuret Pep 1876 pg/mL (-299) H 09/22/18 16:07 Total Protein 7.4 g/dL (6.4-8.2) 09/22/18 16:07 Albumin 3.2 g/dL (3.4-5.0) L 09/22/18 16:07 TSH uIU/mL (0.358-3.74) 09/22/18 16:45 Free T4 0.70 ng/dL (0.76-1.46) L 09/22/18 16:45 Urine Color Yellow (Yellow) 09/22/18 16:57 Urine Clarity Clear (Clear) 09/22/18 16:57 Urine pH 6.0 (5-8) 09/22/18 16:57 Ur Specific [place] 1.015 (1.005-1.025) 09/22/18 16:57 Urine Protein 100 mg/dL (Negative) H 09/22/18 16:57 Urine Ketones Negative mg/dL (Negative) 09/22/18 16:57 Urine Blood Negative (Negative) 09/22/18 16:57 Urine Nitrite Negative (Negative) 09/22/18 16:57 Urine Bilirubin Negative (Negative) 09/22/18 16:57 Urine Urobilinogen 0.2 EU/dL (Up TO 0.2) 09/22/18 16:57 Ur Leukocyte Esterase Negative (Negative) 09/22/18 16:57 Urine RBC 0-2 (0-2) 09/22/18 16:57 Urine WBC 0-2 HPF (0-5) 09/22/18 16:57 Ur Epithelial Cells Rare HPF (Negative) 09/22/18 16:57 Urine Crystals Negative HPF (Negative) 09/22/18 16:57 Urine Bacteria Rare HPF (Negative) 09/22/18 16:57 Urine Casts 0-2 hyaline LPF (Negative) 09/22/18 16:57 Urine Mucus Negative (Negative) 09/22/18 16:57 Urine Other Rare renal (Negative) 09/22/18 16:57 Ur Culture Indicated? No 09/22/18 16:57 Urine Glucose Negative mg/dL (Negative) 09/22/18 16:57
--- NOTE | 2018-09-23 07:41 | NUR.NOTE ---
PT DEVELOPED TEMP OF 39.0. 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 0649 GAVE PT TYLENOL. REPORTED TEMPERATURE TO ONCOMING NURSE AND CLINICAL COORDINATOR. ALSO MD ? IF HE WOULD STILL GET HIS PLATELETS THRU THE INFUSION ROOM HE WAS SCHEDULED TO DO SO TODAY. ALSO PT STATED ONCOLOGIST DID NOT WANT HIM TO GET LOWER THAN 8.5 ON HIS HGB AND ? ABOUT GETTING BLOOD TRANSFUSION. CHECKED WBC, PLATELETS AND H/H LABS. WERE 0.72, 19 AND 8.4/24.5 RESPECTIVELY. [facility]. Marley LYNCH RN FROM INFUSION ROOM CAME TO DISCUSS PT. PT WAS INDEED DUE TO HAVE PLATELETS AND ALL IS READY FOR HIM TO RECEIVE THEM. AFTER THIS DISCUSSION LAB CALLED TO SAY THIS AM WBC WAS 0.7 AND PLTS NOW DOWN TO 14. ALL OF THIS INFO AND DISCUSSION WITH Marley LYNCH RN FROM INFUSION AND NEW LAB VALUES REPORTED OFF TO DAY COORDINATOR, Elida WORLEY RN. ALSO, WENT BACK TO PT AND TOLD HIM I HAD PASSED OFF HIS CONCERNS TO DAY COORDINATOR AND ALL WILL BE FOLLOWED UP ON.Nursing Note:
[2018-09-23 07:50] LABS: Anion Gap 11.2 mmol/L (3-11); BUN 22 mg/dL (7-18); CO2 25.8 mmol/L (21.0-32.0); CREATININE 1.45 mg/dL (0.70-1.30); Calcium 9.1 mg/dL (8.5-10.1); Chloride 99 mmol/L (98-107); Glucose 261 mg/dL (70-100); Potassium 4.3 mmol/L (3.5-5.1); Sodium 136 mmol/L (136-145)
[2018-09-23 08:10] LABS: Platelet Count 14 x1000/uL (130-400)
[2018-09-23 08:12] LABS: Absolute Monocyte Count 0.35 k/cumm (0.11-0.7); Absolute Neutrophil Count 0.11 k/cumm (1.2-6.7)
[2018-09-23 08:15] LABS: Hypochromasia 2+; Poikilocytes 1+; Polychromasia Present
[2018-09-23] MEDS: Ascorbic Acid 500 MG TAB 1000 MG PO ×2 (09:04→19:53)
[2018-09-23] MEDS: Gabapentin 300 MG CAP PO (09:04)
[2018-09-23] MEDS: Sertraline 50 MG TAB 100 MG PO (09:04)
[2018-09-23] MEDS: amLODIPine 10 MG TAB PO (09:05)
[2018-09-23] MEDS: Cholecalciferol (Vitamin D3) 1,000 UNIT TAB 1000 UNITS PO ×2 (09:05→19:53)
[2018-09-23] MEDS: Metoprolol CR 100 MG TABCR PO (09:05)
[2018-09-23] MEDS: Atorvastatin 40 MG TAB 80 MG PO (09:05)
[2018-09-23] MEDS: Acyclovir 400 MG TAB PO ×2 (09:05→19:53)
[2018-09-23] MEDS: Omeprazole 20 MG CAPCR 40 MG PO (09:05)
[2018-09-23] MEDS: Nystatin 500000 UNITS/5 ML SUSP 5ML CUP PO ×4 (09:06→19:53)
[2018-09-23] MEDS: Insulin Aspart 300 UNITS/3 ML PEN SC ×3 (09:07→16:49)
[2018-09-23 09:49] LABS: Abs Immature Grans 0.04 k/cumm (0.0-0.09)
[2018-09-23 09:50] LABS: Diff Comment Manual Differential
[2018-09-23] MEDS: Fluconazole 100 MG TAB 200 MG PO (10:52)
[2018-09-23] MEDS: Lisinopril 20 MG TAB 40 MG PO (11:35)
--- NOTE | 2018-09-23 12:23 | INITIAL_ITS ---
- If Service Date Differs Date of service: 09/23/18 Time of Service: 12:19 Care Management Initial Assess REASON FOR HOSPITALIZATION:: Neutropenic fever PAST MEDICAL HISTORY/PAST SURGICAL HISTORY:: Type 2 diabetes mellitus with complication, with long-term current use of insulin (Chronic). Spinal stenosis of lumbar region (Chronic 11/13/12). Sensorineural hearing loss, asymmetrical (Chronic 11/13/12). Mixed anxiety and depressive disorder (Chronic 11/13/12). Mitral valve insufficiency (Chronic 01/15/16). Microalbuminuria (Chronic 09/23/14). Idiopathic gout (Chronic 12/16/14). Hyperlipidemia (Chronic 11/13/12). Gait abnormality (Chronic 11/13/12). Essential hypertension (Chronic 11/13/12). Disorder of vitamin B12 (Chronic 01/14/13). Disease related peripheral neuropathy (Chronic 01/14/13). Cervical spinal stenosis (Chronic 02/08/15). Cervical radiculopathy (Chronic 01/27/15). Benign neoplasm of colon (Inactive 04/04/14). AML (acute myeloid leukemia) (Acute). HTN (hypertension). Spinal stenosis. Type 2 diabetes mellitus. Surgical History . H/O arthrodesis (Acute 02/15/15). H/O laminectomy (Acute Unknown). H/O vein stripping (Acute ~07/2006). S/P ACL repair (Acute ~02/1992). Anterior Lumbar interbody fusion (07/16/17). Colonoscopy - IV Sedation (04/04/14) PREVIOUS FUNCTIONAL STATUS/SOCIAL/FAMILY SUPPORTS:: Gavin lives with his spouse in [place], [place]. He is a substance abuse counselor. He is currently being treated for AML. He has one grown child. CURRENT FUNCTIONAL STATUS:: Gavin is neutropenic, he is on reverse precautions. He is being treated with IV antibioitcs. Gavin is resting at time of CM visit and was not distrubed. ADVANCE DIRECTIVES:: None on file - will offer to complete with patient when condition improves. Has patient been provided with information about the portal?: Yes Did the patient sign up for the portal?: No (already enrolled) CODE STATUS:: Full Code INSURANCE COVERAGE / FINANCIAL ISSUES:: Medicare, BCBS CURRENT HOME/COMMUNITY SERVICES/EQUIPMENT:: Oncology PRIMARY CARE PHYSICIAN:: Sapna Ornelas APRN POTENTIAL DISCHARGE NEEDS:: Follow up with oncologist, ongoing services through infusion outpatient services and follow up with primary care. PATIENT/FAMILY EDUCATION NEEDS:: Discharge education, limitations and plan of care as directed. ANTICIPATED BARRIERS TO DISCHARGE:: Profound Neutropenia TRANSPORTATION:: Via private car with spouse at time of discharge. PLAN:: Gavin is receiving IV antibioitcs and supportive care. He will be discharged home when medically ready. He will continue to be monitored, including labs and for improvment of his neutropenia. CM to continue to provide support and ongoing discharge planning.
--- NOTE | 2018-09-23 12:51 | PHARADMIT ---
Addendum entered by Gavin Gonzalez III 09/24/18 15:21: Pharmacy Note Subjective AML patient: Initially thought pulmonary source for infection; Cefepime & Vancomycin started. [place]NA neg. discussed with [facility], transitioned to Augmentin (x3days) and continue home dose of Levaquin & Diflucan. Pancytopenia resolving. May need to transfusion. Objective VS-OK Temp-37C SCr-1.34 Lytes-OK, H&H-7.4/21.7 Plt-17 WBC-1.91 ANC- 0.25 Assessment Cefepime/Vanco dc'd Augmntin started. Home meds ordered. Plan Discharge when ANC > 500 and re-evaluate at the clinic on Friday. Original Note: Admission Pharmacy Clinical Review Neuropenic fever, Hx: AML, treatments @[facility] Code Status Full Code Current Weight 81.7 kg Renally Cleared and Narrow Therapeutic Index Meds cRcL~48ML/MIN QTc Value / Action Taken QTC 438 09/22/18 (Levaquin/Fluconazole/Sertraline) BP Control, Fever BP 129/66 Fever 38.3 (Tmax 39.0) Electrolytes reviewed WNL (no Mag drawn) DVT Prophylaxis none Opiate Usage / Scheduled Bowel Regimen Ordered Plt/SCr for Heparin / Enoxaparin Plt 14 (down from )-per [facility] will transfuse special platelets only if Plt drops below 10 SCr 1.45 INR for Warfarin H/H stable, WBC/Bands H/H 7.9/22.9 WBC 0.7 ANC 0.11 (was 0.03).....per [facility] patient not to get CSF's Antibiotic appropriateness Vanco/Cefepime day#2 oral Levaquin and Fluconazole..... wants him on all Anbx Cultures and Sensitivities Blood pending drawn 09/22/18 Blood no growth x48h collected 09/20/18 Chest xray: possible infiltrates/Pneumonia Surgical ABX d/c within 24 hr DM control / Insulin Dosing BG 261 (Novolog/Levemir)....alot of Anbx will make this fluctuate Heart Failure (Check EF%) (ANTONIA's, B-Block, Diuretics) Amlodipine, Lisinopril 40mg (refused full dose-only wanted 20mg), Toprol IV to PO Switch Home Meds Reviewed Home Meds Not Ordered Furosemide, Comments Nystatin and Lidocaine for mouth sores Pt mentioned wanting to be transferred to [facility]
[2018-09-23] MEDS: Gabapentin 300 MG CAP 900 MG PO (22:05)
[2018-09-24] VITALS (12 sets, daily range): BP systolic 123–154; BP diastolic 70–85; PULSE 63–79; RESP 12–18; TEMP 35.8–37; O2SAT 98–100
[2018-09-24] MEDS: CEFEPIME 2 GM in Normal Saline 100 ML IVPB (04:20)
[2018-09-24] MEDS: Acetaminophen 325 MG TAB 650 MG PO ×4 (06:48→21:51)
[2018-09-24 07:58] LABS: Anion Gap 7.9 mmol/L (3-11); BUN 22 mg/dL (7-18); CO2 27.1 mmol/L (21.0-32.0); CREATININE 1.34 mg/dL (0.70-1.30); Calcium 8.9 mg/dL (8.5-10.1); Chloride 103 mmol/L (98-107); Estimated GFR 53.01 (mL/min/1.73m2); Glucose 300 mg/dL (70-100); Magnesium 1.7 mg/dL (1.8-2.4); Potassium 4.5 mmol/L (3.5-5.1); Sodium 138 mmol/L (136-145)
[2018-09-24 08:22] LABS: Abs Immature Grans 0.12 k/cumm (0.0-0.09); HCT 21.7 % (40.0-50.0); HGB 7.4 g/dL (13.5-17.5); Mean Corp. HGB Concentration 34.1 g/dL (32.0-36.0); Mean Corpuscular Hemoglobin 32.5 pg (27.0-33.0); Mean Corpuscular Volume 95.2 fL (80-95); Mean Platelet Volume 10.5 fL (8.0-11.0); RBC 2.28 m/cumm (4.50-6.00); RBC Distribution Width 12.2 % (11.8-14.1)
[2018-09-24 08:30] LABS: White Blood Cell Count 1.91 k/cumm (4.4-10.8)
[2018-09-24] MEDS: Esomeprazole 40 MG CAPCR PO (08:32)
[2018-09-24] MEDS: Cholecalciferol (Vitamin D3) 1,000 UNIT TAB 1000 UNITS PO ×2 (08:32→20:38)
[2018-09-24] MEDS: amLODIPine 10 MG TAB PO (08:33)
[2018-09-24] MEDS: Gabapentin 300 MG CAP PO (08:34)
[2018-09-24] MEDS: Sertraline 50 MG TAB 100 MG PO (08:34)
[2018-09-24] MEDS: Metoprolol CR 100 MG TABCR PO (08:34)
[2018-09-24] MEDS: Ascorbic Acid 500 MG TAB 1000 MG PO ×2 (08:34→20:38)
[2018-09-24] MEDS: Acyclovir 400 MG TAB PO ×2 (08:35→20:38)
[2018-09-24] MEDS: Nystatin 500000 UNITS/5 ML SUSP 5ML CUP PO ×4 (08:35→20:37)
[2018-09-24] MEDS: Fluconazole 100 MG TAB 200 MG PO (08:35)
[2018-09-24] MEDS: Lisinopril 20 MG TAB PO (08:35)
[2018-09-24] MEDS: Atorvastatin 40 MG TAB 80 MG PO (08:35)
[2018-09-24 08:36] LABS: Absolute Lymphocyte Count 0.48 k/cumm (1.2-3.4); Absolute Monocyte Count 1.05 k/cumm (0.11-0.7); Absolute Neutrophil Count 0.25 k/cumm (1.2-6.7); Diff Comment Manual Differential
[2018-09-24] MEDS: Insulin Aspart 300 UNITS/3 ML PEN SC ×5 (08:36→21:53)
[2018-09-24 08:37] LABS: Platelet Count 17 x1000/uL (130-400); Poikilocytes 1+
--- NOTE | 2018-09-24 14:55 | W.PM.PROGNOT ---
Date of Service Date of service: 09/24/18 Time of Service: 14:55 Assessment and Plan (1) Neutropenic fever: Current visit: Yes Status: Acute With likely pulmonary source. Initiated on Cefepime in the ED. Given hospitalization last month, immunosuppression, and evidence of likely pneumonia he was broadened with addition of Vancomycin. Received Vanc/Cefepime for 2 days. Blood Cultures negative X24. No sputum culture available, and Patient remains afebrile for well over 24 hours. Also with WBC 0.7 --> 1.9, and ANC 0.00 --> 0.11, 0.25. D[place] [facility] [place] plan for discontinuation of IV antibiotics, change to oral Augmentin for 3 days, with plans for discharge when ANC >500. Given his complex history plans will be for continuation of Levofloxacin and Fluconazole for now, even after ANC has gone over 500, with reevaluation planned at the clinic next Friday. (2) Pancytopenia: Current visit: Yes Status: Acute WBC/ANC improving daily, and Platelet count >10. Will transfuse with 1 unit Irradiated PRBC given dropping Hgb with symptomatic anemia. (3) Acute myeloid leukemia: Current visit: No Status: Acute Undergoing [place] [facility] Current Pancytopenia following last round of chemo, with current and prior history of Neutropenic Fever. - ANC / WBC improving. Continue to monitor. - Antibiotics and treatment of pneumonia as above. - Per discussion with Hematology, aim for transfusion for platelet count <10, Hgb 7-8. 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 Continue ADA diet. (5) Essential hypertension: Current visit: No Status: Chronic Continue ANTONIA-I, BB, CCB - monitor blood pressure carefully. Consider holding ANTONIA-I if Creatinine worsens. (6) DVT prophylaxis: Current visit: Yes Status: Acute Chemical Prophylaxis contraindicated given significant Thrombocytopenia. Ensure SCDs, TEDs. (7) Advance directive on file: Current visit: Yes Status: Acute Full Code. Subjective Interval history since last seen: 67 year old man with a prior history of AML on Chemotherapy, admitted 09/22 from [facility] Emergency Department with a diagnosis of Neutropenic Fever. Mr. Roach has a Past Medical History significant for AML on Chemo, followed chronically [place] [facility] [place]. His other history includes Type 2 DM, HTN, Dyslipidemia, CAD with hx of NSTEMI, and Spinal Stenosis with peripheral neuropathy and Foot Drop. He underwent Induction therapy in March of 2018, complicated by VFib arrest. 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 The patient was originally seen in the Emergency Department on 09/20 and diagnosed with potential oral candidiasis and dehydration, and sent home following IVFs and prescription of topical antifungal therapy. He was also scheduled for fluid infusion, and at time of his infusion was noted to be febrile. As the patient was known to be neutropenic following his chemotherapy he was referred to the ED for further work-up and likely admission. Labwork showed evidence of pancytopenia with Neutropenia, creatinine at the upper limits of his baseline, negative urinalysis, CXR performed showed evidence of infiltrates, and given some ulcerations in the mouth he was swabbed for potential CMV. He was initiated on Cefepime and admitted for further evaluation and treatment. Mr. Roach continued to be febrile the morning after admission. Given his diagnosis of pneumonia, neutropenia, and hospitalization last month [place] [facility] Vancomycin was added to his regimen. By yesterday afternoon the patient appeared improved and subjectively felt better, and became afebrile. His WBC and platelet count have improved this morning, with a mild drop in Hgb. No other events reported. He has been afebrile for over 24 hours. Exam Narrative Exam Narrative: General: Patient appears comfortable, AAOX3, NAD Neck: Supple CV: Regular, nontachycardic, S1S2, No rubs, murmurs, or gallops. Pulmonary: Continues to be Clear to auscultation bilaterally, no crackles, wheezing, or rhonchi Abdomen: + Bowel Sounds, soft, nontender, nondistended Vascular: No lower extremity edema Psych: Normal mood and affect. Objective Objective Clinical Data: Abnormal lab results 09/22/18 09/24/18 09/24/18 Range/Units 10:50 06:30 06:30 WBC 1.91 L* D (4.4-10.8) k/cumm RBC 2.28 L (4.50-6.00) m/cumm Hgb 7.4 L (13.5-17.5) g/dL Hct 21.7 L (40.0-50.0) % MCV 95.2 H (80-95) fL Plt Count 17 L* (130-400) x1000/uL Absolute Neutrophils 0.25 L* (1.2-6.7) k/cumm Absolute Lymphocytes 0.48 L (1.2-3.4) k/cumm Absolute Monocytes 1.05 H (0.11-0.7) k/cumm BUN 22 H (7-18) mg/dL Creatinine 1.34 H (0.70-1.30) mg/dL Glucose 300 H (70-100) mg/dL Magnesium 1.7 L (1.8-2.4) mg/dL Crossmatch See Detail Vital Signs Temperature 37 C 09/24/18 12:15 Temperature Source Skin 09/24/18 12:15 Pulse 68 09/24/18 12:15 Pulse Rhythm Regular 09/24/18 07:34 Pulse 80 09/22/18 20:01 Respiratory Rate 12 09/24/18 12:15 Respiratory Effort Non-Labored 09/24/18 07:34 Respiratory Depth Normal 09/24/18 07:34 Respiratory Pattern Normal 09/24/18 07:34 Blood Pressure 123/71 09/24/18 12:15 Blood Pressure Mean 80 09/22/18 20:01 Blood Pressure Position Sitting 09/22/18 16:04 Pulse Oximetry 99 09/24/18 12:15 Oxygen Delivery Method Room Air 09/24/18 12:15 Oxygen Flow Rate 0 09/24/18 12:15 Pain Level 2 09/24/18 12:15 Comment 09/23/18 06:15 Intake & Output 09/23/18 09/24/18 09/24/18 23:59 11:59 23:59 Intake Total 410 / 510 590 / 600 10 / 600 Output Total 1050 / 1950 1400 / 1400 Balance -640 / -1440 -810 / -800 10 -800 Intake: IV 110 / 210 110 / 120 10 / 120 Oral 300 / 300 480 / 480 Output: Urine 1049 Other: Urine Color Light Alla Yellow Urine Appearance Clear Clear Urine Odor None Normal Comment Patient voids in toilet. Stool Size Large Stool Characteristics Soft Brown Voiding Methods Toilet Toilet Laboratory Results WBC 1.91 k/cumm (4.4-10.8) L* D 09/24/18 06:30 RBC 2.28 m/cumm (4.50-6.00) L 09/24/18 06:30 Hgb 7.4 g/dL (13.5-17.5) L 09/24/18 06:30 Hct 21.7 % (40.0-50.0) L 09/24/18 06:30 MCV 95.2 fL (80-95) H 09/24/18 06:30 MCH 32.5 pg (27.0-33.0) 09/24/18 06:30 MCHC 34.1 g/dL (32.0-36.0) 09/24/18 06:30 RDW 12.2 % (11.8-14.1) 09/24/18 06:30 Plt Count 17 x1000/uL (130-400) L* 09/24/18 06:30 MPV 10.5 fL (8.0-11.0) 09/24/18 06:30 Immature Gran % See Differential 09/24/18 06:30 13.0 09/24/18 06:30 4.0 % 09/23/18 06:25 25.0 09/24/18 06:30 Atypical Lymphs % 0 09/22/18 16:07 Atypical Lymphs % Cancelled 09/22/18 16:07 55.0 09/24/18 06:30 0.0 09/24/18 06:30 0.0 09/24/18 06:30 6.0 % 09/24/18 06:30 1.0 % 09/24/18 06:30 Cancelled 09/22/18 16:07 Absolute Neutrophils 0.25 k/cumm (1.2-6.7) L* 09/24/18 06:30 Absolute Lymphocytes 0.48 k/cumm (1.2-3.4) L 09/24/18 06:30 Absolute Monocytes 1.05 k/cumm (0.11-0.7) H 09/24/18 06:30 Absolute Eosinophils 0.00 k/cumm (0.0-0.7) 09/24/18 06:30 Absolute Basophils 0.00 k/cumm (0.0-0.2) 09/24/18 06:30 Nucleated RBCs Cancelled 09/22/18 16:07 Manual differential 09/24/18 06:30 Cancelled 09/22/18 16:07 RBC Morphology See below 09/24/18 06:30 Present 09/23/18 06:25 2+ 09/23/18 06:25 1+ 09/24/18 06:30 Cancelled 09/22/18 16:07 Cancelled 09/22/18 16:07 Cancelled 09/22/18 16:07 Cancelled 09/22/18 16:07 Cancelled 09/22/18 16:07 Cancelled 09/22/18 16:07 Cancelled 09/22/18 16:07 Cancelled 09/22/18 16:07 Cancelled 09/22/18 16:07 Cancelled 09/22/18 16:07 Cancelled 09/22/18 16:07 Acanthocytes (Spur) Cancelled 09/22/18 16:07 Cancelled 09/22/18 16:07 Sodium 138 mmol/L (136-145) 09/24/18 06:30 Potassium 4.5 mmol/L (3.5-5.1) 09/24/18 06:30 Chloride 103 mmol/L (98-107) 09/24/18 06:30 Carbon Dioxide 27.1 mmol/L (21.0-32.0) 09/24/18 06:30 7.9 mmol/L (3-11) 09/24/18 06:30 BUN 22 mg/dL (7-18) H 09/24/18 06:30 1.34 mg/dL (0.70-1.30) H 09/24/18 06:30 53.01 (mL/min/1.73m2) 09/24/18 06:30 Glucose 300 mg/dL (70-100) H 09/24/18 06:30 1.4 mmol/l (0.6-1.4) 09/22/18 17:22 Calcium 8.9 mg/dL (8.5-10.1) 09/24/18 06:30 Magnesium 1.7 mg/dL (1.8-2.4) L 09/24/18 06:30 0.3 mg/dL (0.2-1.0) 09/22/18 16:07 AST 12 U/L (15-37) L 09/22/18 16:07 ALT 19 U/L (12-78) 09/22/18 16:07 108 U/L (46-116) 09/22/18 16:07 < 0.05 ng/mL (0.00-0.06) 09/22/18 16:07 NT-Pro-B Natriuret Pep 1876 pg/mL (-299) H 09/22/18 16:07 7.4 g/dL (6.4-8.2) 09/22/18 16:07 3.2 g/dL (3.4-5.0) L 09/22/18 16:07 TSH uIU/mL (0.358-3.74) 09/22/18 16:45 Free T4 0.70 ng/dL (0.76-1.46) L 09/22/18 16:45 Yellow (Yellow) 09/22/18 16:57 Clear (Clear) 09/22/18 16:57 6.0 (5-8) 09/22/18 16:57 Ur Specific Hewett 1.015 (1.005-1.025) 09/22/18 16:57 100 mg/dL (Negative) H 09/22/18 16:57 Negative mg/dL (Negative) 09/22/18 16:57 Negative (Negative) 09/22/18 16:57 Negative (Negative) 09/22/18 16:57 Negative (Negative) 09/22/18 16:57 0.2 EU/dL (Up TO 0.2) 09/22/18 16:57 Ur Leukocyte Esterase Negative (Negative) 09/22/18 16:57 0-2 (0-2) 09/22/18 16:57 0-2 HPF (0-5) 09/22/18 16:57 Ur Epithelial Cells Rare HPF (Negative) 09/22/18 16:57 Negative HPF (Negative) 09/22/18 16:57 Rare HPF (Negative) 09/22/18 16:57 0-2 hyaline LPF (Negative) 09/22/18 16:57 Negative (Negative) 09/22/18 16:57 Rare renal (Negative) 09/22/18 16:57 Ur Culture Indicated? No 09/22/18 16:57 Negative mg/dL (Negative) 09/22/18 16:57 Patient ABO/Rh B Positive 09/22/18 10:50 Antibody Screen Negative 09/22/18 10:50 Crossmatch See Detail 09/22/18 10:50
--- NOTE | 2018-09-24 15:18 | CMPROGNOTE_ITS ---
- If Service Date Differs Date of service: 09/24/18 Time of Service: 15:18 Care Management Progress Note S/O: CM met with patient he is engaged in conversation. CM reviewed the discharge plan, and follow up plan of care. Gavin receives all of his cancer treatments at [facility] [place]. He is now on on rodent exterminator disability. He does have home health once a week nursing, and PT he does not feel he needs additional resources. CM did review palliative services which he receives through [facility] [place], and he considered completing his advance directives however his spouse would like to complete the Spiritism directives. He will discuss is further with his spouse and let CM know if he would like to complete. A: Gavin is a 67 year old male admitted with neutropenic fever with a diagnosis of AML in Mar 2018. P:Gavin is receiving IV antibiotics and supportive care. He will be discharged home when medically ready, resumption of home health nursing and PT [facility]. He will continue to be monitored, including labs and for improvement of his neutropenia. CM to continue to provide support and ongoing discharge planning.
[2018-09-24] MEDS: Docusate Sodium 100 MG CAP PO (20:38)
[2018-09-24] MEDS: Gabapentin 300 MG CAP 900 MG PO (21:50)
[2018-09-24] MEDS: diphenhydrAMINE 25 MG CAP PO (22:07)
[2018-09-25 02:35] VITALS: BP 136/74; PULSE 76; RESP 16; TEMP 36.4; O2SAT 97
[2018-09-25 07:30] VITALS: BP 148/79; PULSE 76; RESP 16; TEMP 37.2; O2SAT 94
[2018-09-25 08:24] LABS: Abs Immature Grans 0.24 k/cumm (0.0-0.09); HGB 8.8 g/dL (13.5-17.5); Mean Corp. HGB Concentration 33.8 g/dL (32.0-36.0); Mean Corpuscular Hemoglobin 31.2 pg (27.0-33.0); Mean Corpuscular Volume 92.2 fL (80-95); Mean Platelet Volume 11.5 fL (8.0-11.0); RBC 2.82 m/cumm (4.50-6.00); RBC Distribution Width 13.2 % (11.8-14.1); White Blood Cell Count 2.66 k/cumm (4.4-10.8)
[2018-09-25 08:29] LABS: Anion Gap 10.2 mmol/L (3-11); BUN 25 mg/dL (7-18); CO2 25.8 mmol/L (21.0-32.0); Calcium 9.5 mg/dL (8.5-10.1); Chloride 102 mmol/L (98-107); Glucose 242 mg/dL (70-100); Magnesium 1.6 mg/dL (1.8-2.4); Potassium 4.6 mmol/L (3.5-5.1); Sodium 138 mmol/L (136-145)
[2018-09-25 09:01] LABS: Platelet Count 27 x1000/uL (130-400)
[2018-09-25 09:02] LABS: Absolute Lymphocyte Count 0.51 k/cumm (1.2-3.4); Absolute Neutrophil Count 0.48 k/cumm (1.2-6.7)
[2018-09-25] MEDS: Nystatin 500000 UNITS/5 ML SUSP 5ML CUP PO ×3 (09:02→16:00)
[2018-09-25] MEDS: Normal Saline Flush 10 ML SYR IVP (09:02)
[2018-09-25 09:03] LABS: Absolute Monocyte Count 1.46 k/cumm (0.11-0.7); Diff Comment Manual Differential; Other Cells 2; Promyelocytes % 1 %
[2018-09-25] MEDS: Insulin Aspart 300 UNITS/3 ML PEN SC ×4 (09:03→12:23)
[2018-09-25 09:04] LABS: RBC Morphology Normal
[2018-09-25] MEDS: Fluconazole 100 MG TAB 200 MG PO (09:05)
[2018-09-25] MEDS: Sertraline 50 MG TAB 100 MG PO (09:05)
[2018-09-25] MEDS: amLODIPine 10 MG TAB PO (09:05)
[2018-09-25] MEDS: Ascorbic Acid 500 MG TAB 1000 MG PO (09:05)
[2018-09-25] MEDS: Lisinopril 20 MG TAB PO (09:05)
[2018-09-25] MEDS: Esomeprazole 40 MG CAPCR PO (09:05)
[2018-09-25] MEDS: Atorvastatin 40 MG TAB 80 MG PO (09:06)
[2018-09-25] MEDS: Acetaminophen 325 MG TAB 650 MG PO ×2 (09:06→13:57)
[2018-09-25] MEDS: Docusate Sodium 100 MG CAP PO (09:07)
[2018-09-25] MEDS: Amoxicillin 875/Clav. 125 TAB PO (09:07)
[2018-09-25] MEDS: Acyclovir 400 MG TAB PO (09:07)
[2018-09-25] MEDS: Cholecalciferol (Vitamin D3) 1,000 UNIT TAB 1000 UNITS PO (09:07)
[2018-09-25] MEDS: Metoprolol CR 100 MG TABCR PO (09:07)
[2018-09-25] MEDS: Gabapentin 300 MG CAP PO (09:07)
--- NOTE | 2018-09-25 10:18 | CMPROGNOTE_ITS ---
- If Service Date Differs Date of service: 09/25/18 Time of Service: 10:18 Care Management Progress Note S/O: A: Gavin is a 67 year old male admitted with neutropenic fever with a diagnosis of AML in Mar 2018. P:Gavin is receiving IV antibiotics and supportive care. He will be discharged home when medically ready, resumption of home health nursing and PT [facility]. He will continue to be monitored, including labs and for improvement of his neutropenia. CM to continue to provide support and ongoing discharge planning.
[2018-09-25 13:08] LABS: Abs Immature Grans 0.29 k/cumm (0.0-0.09); HCT 28.5 % (40.0-50.0); HGB 9.7 g/dL (13.5-17.5); Mean Corpuscular Hemoglobin 31.4 pg (27.0-33.0); Mean Corpuscular Volume 92.2 fL (80-95); Mean Platelet Volume 10.9 fL (8.0-11.0); RBC 3.09 m/cumm (4.50-6.00); RBC Distribution Width 13.3 % (11.8-14.1); White Blood Cell Count 2.63 k/cumm (4.4-10.8)
[2018-09-25 13:27] LABS: Absolute Lymphocyte Count 0.42 k/cumm (1.2-3.4); Absolute Monocyte Count 1.26 k/cumm (0.11-0.7); Platelet Count 28 x1000/uL (130-400); Promyelocytes % 1 %
[2018-09-25 13:28] LABS: Diff Comment Manual Differential; RBC Morphology Normal
--- NOTE | 2018-09-25 14:02 | DSE_ITS ---
Date of service: 09/25/18 Time of Service: 14:02 DS: Diagnosis Discharge Diagnosis (1) Neutropenic fever: Status: Acute (2) Pancytopenia: Status: Acute (3) Acute myeloid leukemia: Status: Acute (4) Type 2 diabetes mellitus with complication, with long-term current use of insulin: Status: Chronic (5) Essential hypertension: Status: Chronic Discharge Plan Disposition Patient Disposition: HOME Condition: Improving Discharge Details Chief Complaint: Fever Reason For Visit: NEUTROPENIC FEVER Admit Date/Time: 09/22/18 19:37 Admit Provider: Rogers Haider Attending Provider: Rogers Haider Primary Care Provider: Sapna Ornelas ED Provider: Rufina Peterson Hospital Course Hospital Course: Chief Complaint: Fever HPI: 67 year old man with a prior history of AML on Chemotherapy, admitted 09/22 from [facility] Emergency Department with a diagnosis of Neutropenic Fever. Mr. Roach has a Past Medical History significant for AML on Chemo, followed chronically at [facility] Heme[facility]c. His other history includes Type 2 DM, HTN, Dyslipidemia, CAD with hx of NSTEMI, and Spinal Stenosis with peripheral neuropathy and Foot Drop. He underwent Induction therapy in March of 2018, complicated by VFib arrest. 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 The patient was originally seen in the Emergency Department on 09/20 and diagnosed with potential oral candidiasis and dehydration, and sent home following IVFs and prescription of topical antifungal therapy. He was also scheduled for fluid infusion, and at time of his infusion was noted to be febrile. As that patient was known to be neutropenic following his chemotherapy, and was referred to the ED for further work-up and likely admission. Labwork showed evidence of pancytopenia with Neutropenia, creatinine at the upper limits of his baseline, negative urinalysis, CXR performed showed evidence of infiltrates, and given some ulcerations in the mouth he was swabbed for potential CMV. He was initiated on Cefepime and admitted for further evaluation and treatment. Mr. Roach continued to be febrile the morning after admission. Given his diagnosis of pneumonia, neutropenia, and hospitalization last month at [facility], Vancomycin was added to his regimen. By that afternoon the patient appeared improved and subjectively felt better, and became afebrile. As he had remained afebrile he was changed to oral antibiotics yesterday. His WBC and platelet count have improved again this morning, with a mild drop in Hgb requiring transfusion with PRBCs X1. This morning his White Count has improved again, and on repeat blood work has an ANC >500. No other events reported. He has been afebrile for over 48 hours (last morning of 09/23). Hospital Course: (1) Neutropenic fever: With likely pulmonary source for infection. Initiated on Cefepime in the ED. Given hospitalization last month, immunosuppression, and evidence of likely pneumonia he was broadened with addition of Vancomycin. Received Vanc/Cefepime for 2 days. Blood Cultures negative X48. No sputum culture available, and Patient remains afebrile for well over 48 hours. Also with WBC 0.7 --> 1.9, 2.6 and ANC 0.00 --> 0.11, 0.25, 0.48, 0.60. Discussed patient's course with Hematology at [facility] - IV antibiotics were discontinued the day prior to discharge and changed to oral Augmentin for a planned 3 day course. Plan is for discharge as ANC >500. Given his complex history plans will be for continuation of Levofloxacin and Fluconazole for now, even though ANC has gone over 500, with reevaluation planned at the clinic next Friday. Had in-depth discussion regarding the fact that Patient likely did not 'get C.Diff' from Augmentin, rather as a result of antibiotic therapy in general. Consider addition of probiotics in the future when appropriate, and monitor for any signs of recurrence of diarrhea. (2) Pancytopenia: WBC/ANC improved daily, with Platelet count >10, Hgb >8, and ANC >500. Transfused with 1 unit Irradiated PRBC on 09/24 given dropping Hgb with symptomatic anemia. (3) Acute myeloid leukemia: Undergoing Care at [facility]. Current Pancytopenia following last round of chemo, with current and prior history of Neutropenic Fever. - ANC / WBC improving as above. - Antibiotics and treatment of pneumonia as above. - Per discussion with Hematology, aim for transfusion for platelet count <10, Hgb 7-8 (Currently 9.7 and 28 respectively). (4) Type 2 diabetes mellitus with complication, with long-term current use of insulin: Elevated blood sugar - Continue home dosing of basal insulin, cover with sliding scale, initiate premeal insulin and monitor closely. Continue ADA diet. (5) Essential hypertension: Continue ANTONIA-I, BB, CCB - monitor blood pressure carefully. (6) DM: Fairly high blood sugars, with numbers in the 200-300's despite resumption of home regimen of insulin, maintenance on sliding scale, and initiation of meal time insulin. Blood Sugars need to be monitored as an outpatient. (7) DVT prophylaxis: Chemical Prophylaxis contraindicated given significant Thrombocytopenia. Patient was maintained on SCDs, TEDs. (8) Advance directive on file: Full Code. CC: Dr. Elise - Hematology at [facility]. Home Meds and New Rx's Prescriptions: New amoxicillin-pot clavulanate 875-125 mg Tablet 1 tab PO BID Qty: 5 RF: 0 Continued triamcinolone acetonide 0.1 % ointment 1 applic TP BID Qty: 30 RF: 0 Aquaphor Healing 41 % ointment 1 applic TP Q8H Qty: 99 RF: 1 sertraline 100 mg tablet 100 mg PO DAILY RF: 0 aspirin [Aspir-81] 81 MG tablet,delayed release (DR/EC) 81 mg PO DAILY RF: 0 mometasone 45 GM cream 1 bruno Topical PRN PRNQty: 45 RF: 0 cholecalciferol (vitamin D3) 1,000 UNIT tablet 1,000 unit PO BID RF: 0 naproxen sodium [Aleve] 220 MG capsule 220 mg PO Q12H PRN RF: 0 loperamide 2 MG tablet 2 mg PO QID PRNQty: 30 RF: 1 cyanocobalamin (vitamin B-12) 1,000 MCG/1 ML solution 1,000 mcg IJ 4w Qty: 3 RF: 3 omeprazole 40 MG capsule,delayed release(DR/EC) 40 mg PO DAILY Qty: 90 RF: 3 probenecid 500 MG tablet 500 mg PO BID Qty: 180 RF: 3 acyclovir 400 mg tablet 400 mg PO BID RF: 0 (DME) pen needle, diabetic [Lite Touch Insulin Pen Thatcher] 31 gauge x 3/16 needle See Dose Instructions .ROUTE .MEDSUPPLY Qty: 30 RF: 0 ascorbic acid (vitamin C) [Vitamin C] 1,000 mg tablet extended release 1,000 mg PO BID RF: 0 Humalog KwikPen Insulin 100 unit/mL insulin pen See Rx Instructions SC AC Qty: 15 RF: 0 (DME) lancets [FreeStyle Lancets] 28 gauge misc 1 ea Miscellaneous TID Qty: 400 RF: 3 (DME) FreeStyle Lite Strips strip 1 ea Miscellaneous TID Qty: 400 RF: 3 metoprolol succinate 100 mg cap,sprinkle,ER 24hr dose pack 100 mg PO DAILY RF: 0 Levemir FlexTouch U-100 Insuln 100 unit/mL (3 mL) insulin pen See Rx Instructions Sub-Q DIRECTED RF: 3 lisinopril 40 mg tablet 40 mg PO DAILY RF: 0 amlodipine 10 mg tablet 10 mg PO DAILY RF: 0 furosemide 20 mg tablet 20 mg PO DAILY PRNRF: 0 gabapentin 300 mg capsule See Rx Instructions PO BID Qty: 360 RF: 3 atorvastatin 80 mg tablet 80 mg PO DAILY RF: 0 fluconazole 200 mg tablet 200 mg PO DAILY RF: 0 levofloxacin [Levaquin] 750 mg tablet 750 mg PO DAILY RF: 0 nystatin 100,000 unit/mL suspension 500,000 unit BC QID 10 Days Qty: 200 RF: 0 Discharge Instructions Stand Alone Forms: Nursing Discharge Form Referrals: Sapna Ornelas NP [Primary Care Provider] - 10/05/18 11:00 am Activity:: No Strenuous Activity Equipment/Supplies:: No Equipment Needed Diet:: Carb Counting Discharge Orders Discharge Orders: Discharge Order (Routine); Ordered 09/25/18 Ordered By: Juan Verduzco Exam Narrative Exam Narrative: General: Patient appears comfortable, AAOX3, NAD Neck: Supple CV: Regular, nontachycardic, S1S2, No rubs, murmurs, or gallops. Pulmonary: Continues to be Clear to auscultation bilaterally, no crackles, wheezing, or rhonchi Abdomen: + Bowel Sounds, soft, nontender, nondistended Vascular: No lower extremity edema Psych: Normal mood and affect. DS: Data Vitals/I&O Vitals and I&O: Vital Signs Temperature 37.2 C 09/25/18 07:30 Temperature Source Tympanic 09/25/18 07:30 Pulse 76 09/25/18 07:30 Pulse Rhythm Regular 09/25/18 07:45 Pulse 80 09/22/18 20:01 Respiratory Rate 16 09/25/18 07:30 Respiratory Effort Non-Labored 09/25/18 07:45 Respiratory Depth Normal 09/25/18 07:45 Respiratory Pattern Normal 09/25/18 07:45 Blood Pressure 148/79 H 09/25/18 07:30 Blood Pressure Mean 80 09/22/18 20:01 Blood Pressure Position Sitting 09/22/18 16:04 Pulse Oximetry 94 L 09/25/18 07:30 Oxygen Delivery Method Room Air 09/25/18 07:30 Oxygen Flow Rate 0 09/25/18 07:30 Pain Level 3 09/25/18 13:57 Comment 09/25/18 07:30 Intake & Output 09/24/18 09/25/18 09/25/18 23:59 11:59 23:59 Intake Total 590 / 1180 240 / 240 Balance 590 / -220 240 / 240 Intake: IV 40 / 150 Oral 240 / 720 240 / 240 Blood Product 300 / 300 Rbc Leuko Reduced Unit 300 / 300 [id number] Other Rbc Leuko Reduced Unit / 10 [id number] Other: Urine Color Yellow Yellow Urine Appearance Clear Clear Urine Odor Normal Normal Comment Patient voids independantly in room not measured Voiding Methods Toilet Toilet Labs on day of discharge: Labs from last 24 hours 09/25/18 09/25/18 09/25/18 12:45 06:30 06:30 WBC 2.63 L 2.66 L D RBC 3.09 L 2.82 L Hgb 9.7 L 8.8 L Hct 28.5 L 26.0 L MCV 92.2 92.2 D MCH 31.4 31.2 MCHC 34.0 33.8 RDW 13.3 13.2 Plt Count 28 L* 27 L* D MPV 10.9 11.5 H Immature Gran % See Differential See Differential Neutrophils % 20.0 18.0 Band Neutrophils % 3.0 Lymphocytes % 16.0 19.0 Monocytes % 48.0 55.0 Eosinophils % 0.0 0.0 Basophils % 0.0 0.0 Metamyelocytes % 7.0 3.0 Myelocytes % 5.0 2.0 Promyelocytes % 1 1 Absolute Neutrophils 0.60 L 0.48 L* Absolute Lymphocytes 0.42 L 0.51 L Absolute Monocytes 1.26 H 1.46 H Absolute Eosinophils 0.00 0.00 Absolute Basophils 0.00 0.00 Differential Comment Manual differential Manual differential Other Cell Type 2 RBC Morphology Normal Normal Sodium 138 Potassium 4.6 Chloride 102 Carbon Dioxide 25.8 Anion Gap 10.2 BUN 25 H Creatinine 1.30 Estimated GFR/1.73 m2 54.90 Glucose 242 H Calcium 9.5 Magnesium 1.6 L Patient ABO/Rh Antibody Screen Crossmatch 09/22/18 10:50 WBC RBC Hgb Hct MCV MCH MCHC RDW Plt Count MPV Immature Gran % Neutrophils % Band Neutrophils % Lymphocytes % Monocytes % Eosinophils % Basophils % Metamyelocytes % Myelocytes % Promyelocytes % Absolute Neutrophils Absolute Lymphocytes Absolute Monocytes Absolute Eosinophils Absolute Basophils Differential Comment Other Cell Type RBC Morphology Sodium Potassium Chloride Carbon Dioxide Anion Gap BUN Creatinine Estimated GFR/1.73 m2 Glucose Calcium Magnesium Patient ABO/Rh B Positive Antibody Screen Negative Crossmatch See Detail Preliminary micro results at discharge 09/22/18 16:45 Blood Culture - Preliminary Blood NO GROWTH 48 HOURS 09/22/18 16:30 Blood Culture - Preliminary Blood NO GROWTH 48 HOURS Additional Comments Exam(s) 09/22/2018 a RAD:XR chest 2V PA & lateral SYMPTOM/DIAGNOSIS: FEVER, ON CHEMO PA AND LATERAL CHEST: The examination is compared with previous examination of 09/20. The heart is at the upper limits of normal in size. On the PA film, there is some question of early patchy consolidation in both lung bases. Possible right upper lobe very early consolidation may also be present. No pleural effusion is seen. No pneumothorax. CONCLUSION: Question interval development of mild bibasilar patchy pneumonia since 09/20/18. Appropriate follow up films requested. 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/13/12) HTN (hypertension) Hyperlipidemia (Chronic 11/13/12) Idiopathic gout (Chronic 12/16/14) Microalbuminuria (Chronic 09/23/14) Mitral valve insufficiency (Chronic 01/15/16) Mixed anxiety and depressive disorder (Chronic 11/13/12) Sensorineural hearing loss, asymmetrical (Chronic 11/13/12) Spinal stenosis Spinal stenosis of lumbar region (Chronic 11/13/12) Type 2 diabetes mellitus Type 2 diabetes mellitus with complication, with long-term current use of insulin (Chronic) Surgical History Anterior Lumbar interbody fusion (07/16/17) Colonoscopy - IV Sedation (04/04/14) H/O arthrodesis (Acute 02/15/15) H/O laminectomy (Acute Unknown) H/O vein stripping (Acute ~07/2006) S/P ACL repair (Acute ~02/1992) Family History Mother Dementia Father Heart disease Gout Tongue cancer Grandmother Heart disease Other Diabetes Rheumatoid arthritis Social History Smoking/Tobacco Use Status: Never Alcohol Intake: current Alcohol Intake frequency: holidays/special occasions only Drug use: Never Substance use type: does not use Adopted: No Number of Children: 1 current occupation: Counselor substance abuse Pets and animals: No What type of physical activity do you participate in: none Seatbelt use: always Working smoke detector in home: Yes Carbon monox detector in home: Yes
--- NOTE | 2018-09-25 15:20 | DM INPTCON_ITS ---
Date of service: 09/25/18 Time of Service: 15:20 Diabetes Inpatient Consult DESCRIPTION/ASSESSMENT: Appreciate diabetes consult for Mr. Roach who is hospitalized with nutropenia secondary to chemotherapy with diabetes treated with insulin. Self reported A1c 7.2 BLood sugars this hospitalization 2-400s with his usual basal insulin dose of 12 and 10u Levemir and mealtime insulin of 1 unit for 10 grams carbohydrate and moderate insulin correction. He reports he takes 20-30units mealtime insulin most meals which is more than he receives here. He believes this as well as his current health status is causing his hyperglycemia. He anticipates going home and having blood sugars return closer to normal. He reports being well supported for diabetes by [facility]. INTERVENTION: He agrees that if his visit here is prolonged he would like to improve his glycemic control by increasing his mealtime insulin. He may need Novolog 1 unit for 5 grams carbohdyrate and resistant insulin correction. PLAN: Will follow blood sugars. He is now aware of our services if he desires self management support locally. Time Spent in Nutritional Counseling and Treatment: 20 minutes face to face
--- NOTE | 2018-09-25 16:13 | PDOC.CMDIS ---
- If Service Date Differs Date of service: 09/25/18 Time of Service: 16:13 LACE Index Scoring Tool - Questions: Length of Stay (in days): 4 - 6 Acuity (Admit via E.D.?): Yes Comorbidities: Any Tumor E.D. Visits: 4 - Answers: Total Score: 13 Risk of Readmission: High Risk Care Management Discharge Reason for Hospitalization: Neutropenic fever Discharge Plan: Gavin is being discharged home today he will continue with oral antibioitcs and follow up with his oncologist as directed. No other service are needed at this time. Patient/Family Education Needs: Discharge education, limitations and follow up plan of care including ask me three and self management.
[2018-10-08 14:41] LABS: TSH (W/Ref FT4) 3.19 uIU/mL (0.36-3.74)
== END 2018-09-25 16:55 | disposition home or self-care (01) | DRG 808 ==
LOC: ER 19:43 → MS 20:19
PROVIDERS: Internal Medicine Hematology & Oncology; Admitting Provider General Practice; Emergency Provider Student in an Organized Health Care Education/Training Program; PCP Nurse Practitioner Family; Visit Provider Internal Medicine
DX: D70.9 Neutropenia, unspecified (principal); J18.9 Pneumonia, unspecified organism; C92.00 Acute myeloblastic leukemia, not having achieved remission; R50.81 Fever presenting with conditions classified elsewhere; Z79.899 Other long term (current) drug therapy; D61.811 Other drug-induced pancytopenia; T45.1X5A Adverse effect of antineoplastic and immunosuppressive drugs, initial encounter; E11.65 Type 2 diabetes mellitus with hyperglycemia; Z79.4 Long term (current) use of insulin; Z71.3 Dietary counseling and surveillance; I10 Essential (primary) hypertension; K12.1 Other forms of stomatitis
CPT/HCPCS: 36415; 36430; 80048; 80053; 85027; 86850; 86900; 86901; 86920; 86945; 87040; 93005; 96365; 99222; 99233; 99239; 99285; 71046; 81003; 81015; 83605; 83735; 83880; 84439; 84443; 84484; 85007; 85025; 93010; J3370; J3490; P9016

== ENCOUNTER 2018-09-23 01:15 | Outpatient (RCR) | payer MEDICARE, BC, SELFPAY ==
[2018-09-22] MEDS: Normal Saline 500 ML 250 ML IV (14:30)
[2018-09-22] MEDS: Normal Saline Flush 10 ML SYR IVP (14:34)
[2018-09-22 15:30] VITALS: BP 155/88; PULSE 86; RESP 18; TEMP 38.4
== END 2018-10-14 23:59 | disposition home or self-care (01) ==
LOC: INF 01:15
PROVIDERS: PCP Nurse Practitioner Family; Visit Provider Nurse Practitioner Adult Health
DX: C92.01 Acute myeloblastic leukemia, in remission (principal); Z92.21 Personal history of antineoplastic chemotherapy; I10 Essential (primary) hypertension; I25.2 Old myocardial infarction; E11.9 Type 2 diabetes mellitus without complications
CPT/HCPCS: 96360; 93005; 93010

== ENCOUNTER 2018-09-28 16:20 | Emergency (ER) | payer MEDICARE, BC, SELFPAY ==
[2018-09-28] VITALS (33 sets, daily range): BP systolic 92–128; BP diastolic 50–111; PULSE 62–77; RESP 9–21; TEMP 36.2; O2SAT 96–100
--- NOTE | 2018-09-28 16:32 | DI.RAD_ITS ---
SYMPTOM/DIAGNOSIS: DIZZINESS, HYPOTENSION PA AND LATERAL CHEST: Comparison is made with 09/22/18. Heart size and pulmonary vasculature are within normal limits. The lungs are clear. No effusions or pneumothoraces are identified. There are old bilateral healed rib fractures. There are post surgical changes again seen in the lower cervical spine. IMPRESSION: No acute pulmonary process.
--- NOTE | 2018-09-28 16:33 | W.ED.GENAD ---
Discharge Plan Disposition Patient Disposition: HOME Condition: Improving Discharge Details Chief Complaint: Dizzy/Sync Clinical Impression: Dizziness Clinical Impression: (Ruled Out): Encounter for deep vein thrombosis (DVT) prophylaxis Primary Care Provider: Sapna Ornelas ED Provider: Zaida Johnson Home Meds and New Rx's Prescriptions: Continued triamcinolone acetonide 0.1 % ointment 1 applic TP BID Qty: 30 RF: 0 Aquaphor Healing 41 % ointment 1 applic TP Q8H Qty: 99 RF: 1 sertraline 100 mg tablet 100 mg PO DAILY RF: 0 aspirin [Aspir-81] 81 MG tablet,delayed release (DR/EC) 81 mg PO DAILY RF: 0 mometasone 45 GM cream 1 bruno Topical PRN PRNQty: 45 RF: 0 cholecalciferol (vitamin D3) 1,000 UNIT tablet 1,000 unit PO BID RF: 0 naproxen sodium [Aleve] 220 MG capsule 220 mg PO Q12H PRN RF: 0 loperamide 2 MG tablet 2 mg PO QID PRNQty: 30 RF: 1 cyanocobalamin (vitamin B-12) 1,000 MCG/1 ML solution 1,000 mcg IJ 4w Qty: 3 RF: 3 omeprazole 40 MG capsule,delayed release(DR/EC) 40 mg PO DAILY Qty: 90 RF: 3 probenecid 500 MG tablet 500 mg PO BID Qty: 180 RF: 3 acyclovir 400 mg tablet 400 mg PO BID RF: 0 (DME) pen needle, diabetic [Lite Touch Insulin Pen Aragon] 31 gauge x 3/16 needle See Dose Instructions .ROUTE .MEDSUPPLY Qty: 30 RF: 0 ascorbic acid (vitamin C) [Vitamin C] 1,000 mg tablet extended release 1,000 mg PO BID RF: 0 Humalog KwikPen Insulin 100 unit/mL insulin pen See Rx Instructions SC AC Qty: 15 RF: 0 (DME) lancets [FreeStyle Lancets] 28 gauge misc 1 ea Miscellaneous TID Qty: 400 RF: 3 (DME) FreeStyle Lite Strips strip 1 ea Miscellaneous TID Qty: 400 RF: 3 metoprolol succinate 100 mg cap,sprinkle,ER 24hr dose pack 100 mg PO DAILY RF: 0 Levemir FlexTouch U-100 Insuln 100 unit/mL (3 mL) insulin pen See Rx Instructions Sub-Q DIRECTED RF: 3 lisinopril 40 mg tablet 40 mg PO DAILY RF: 0 amlodipine 10 mg tablet 10 mg PO DAILY RF: 0 furosemide 20 mg tablet 20 mg PO DAILY PRNRF: 0 gabapentin 300 mg capsule See Rx Instructions PO BID Qty: 360 RF: 3 atorvastatin 80 mg tablet 80 mg PO DAILY RF: 0 fluconazole 200 mg tablet 200 mg PO DAILY RF: 0 levofloxacin [Levaquin] 750 mg tablet 750 mg PO DAILY RF: 0 amoxicillin-pot clavulanate 875-125 mg Tablet 1 tab PO BID Qty: 5 RF: 0 nystatin 100,000 unit/mL suspension 500,000 unit BC QID 10 Days Qty: 200 RF: 0 Discharge Instructions Instructions: Dizziness (ED) Additional Instructions: Take your regular medications as directed. Follow-up with your scheduled appointment with [facility] on Friday. Follow-up with your primary care doctor for reevaluation and for referral for outpatient potline monitor for further evaluation of your dizziness if indicated. Return immediately to the emergency department if you develop any worsening or new concerning symptoms. 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 Blood cultures showed no growth from admission last week. Patient denies any symptoms at present. Vitals within normal limits on arrival. BP 104/72. EKG notes a rate of 69, sinus with no acute ST elevation or depression. No focal deficits on exam. Differential diagnosis includes dehydration, electrolyte abnormality, arrhythmia, infection. Does not appear consistent with a central neurologic cause as he was hypotensive upon standing he denies any headache and no focal deficits. Will check screening labs, orthostats, chest x-ray, urinalysis and give fluids and reassess. 1800 --labs and imaging reviewed. White blood cell count 7. Hemoglobin 8.5. Platelets 117. Neutrophils 54%. Bands 6%. Creatinine 1.56. Lactate 1.8. Troponin negative. Urinalysis negative. Chest x-ray negative. Orthostats negative. 1900 --Case and results discussed with [facility] hematology -if patient feels better, no other acute recommendations at this time and will follow up with patient on Friday. No acute concern with bands 6% at this time per heme. Patient's BP has remained stable while in the ED, 120s/80s. 2009 --repeat lactate improved to 1.2. Patient feels much better and is requesting to go home. He is instructed to drink plenty of fluids, get plenty of rest and follow-up with his scheduled appointment with hematology on Friday. He is instructed to return here immediately if worse. Repeat EKG done in error and appears unchanged and unremarkable. Medical Records Medical records reviewed: Yes I reviewed the patient's medical records. Imaging Data Radiologic Study: Radiologist's impression: XR Chest, 2 Views EXAM DATE/TIME: 09/28/2018 4:34 PM CLINICAL HISTORY: 67 years old, male; Other: Dizziness, hypotension, R/O acute disease TECHNIQUE: Imaging protocol: XR of the chest, 2 views. COMPARISON: SC XR CHEST 2V PA LATERAL 09/22/2018 4:59 PM FINDINGS: Lungs: Unremarkable. No consolidation. Pleural space: Unremarkable. No pleural effusion. No pneumothorax. Heart/Mediastinum: Unremarkable. No cardiomegaly. Bones/joints: Degenerative changes of the thoracic spine without acute osseous abnormality. Several old left lateral rib fractures are present. Other findings: Lower cervical plate and screws are identified. IMPRESSION: No evidence of active pulmonary disease. Lab Data Lab results reviewed: Yes I reviewed the patient's lab results. 09/28/18 17:20 Blood Blood Culture - Preliminary NO GROWTH 24 HOURS 09/28/18 17:20 Blood Blood Culture - Preliminary NO GROWTH 24 HOURS Laboratory Tests Range/Units 09/28/18 09/28/18 09/28/18 17:20 17:20 17:20 WBC (4.4-10.8) k/cumm 7.27 RBC (4.50-6.00) m/cumm 2.73 L Hgb (13.5-17.5) g/dL 8.5 L Hct (40.0-50.0) % 25.9 L MCV (80-95) fL 94.9 MCH (27.0-33.0) pg 31.1 MCHC (32.0-36.0) g/dL 32.8 RDW (11.8-14.1) % 13.2 Plt Count (130-400) x1000/uL 117 L MPV (8.0-11.0) fL 9.7 Immature Gran % See Differential Neutrophils % 54.0 Band Neutrophils % % 6.0 Lymphocytes % 10.0 Atypical Lymphs % 1 Monocytes % 23.0 Eosinophils % 0.0 Basophils % 0.0 Metamyelocytes % % 2.0 Myelocytes % % 4.0 Absolute Neutrophils (1.2-6.7) k/cumm 4.36 Absolute Lymphocytes (1.2-3.4) k/cumm 0.80 L Absolute Monocytes (0.11-0.7) k/cumm 1.67 H Absolute Eosinophils (0.0-0.7) k/cumm 0.00 Absolute Basophils (0.0-0.2) k/cumm 0.00 Differential Comment Manual differential RBC Morphology See below Polychromasia Present Hypochromasia 1+ Sodium (136-145) mmol/L 138 Potassium (3.5-5.1) mmol/L 4.2 Chloride (98-107) mmol/L 102 Carbon Dioxide (21.0-32.0) mmol/L 26.4 Anion Gap (3-11) mmol/L 9.6 BUN (7-18) mg/dL 27 H Creatinine (0.70-1.30) mg/dL 1.56 H Estimated GFR/1.73 m2 (mL/min/1.73m2) 44.48 Glucose (70-100) mg/dL 184 H Lactate (0.6-1.4) mmol/l 1.8 H Calcium (8.5-10.1) mg/dL 9.3 Magnesium (1.8-2.4) mg/dL 1.7 L Total Bilirubin (0.2-1.0) mg/dL 0.2 AST (15-37) U/L 14 L ALT (12-78) U/L 39 Alkaline Phosphatase (46-116) U/L 125 H Troponin I (0.00-0.06) ng/mL < 0.05 Total Protein (6.4-8.2) g/dL 7.8 Albumin (3.4-5.0) g/dL 3.4 Urine Color (Yellow) Urine Clarity (Clear) Urine pH (5-8) Ur Specific [place] (1.005-1.025) Urine Protein (Negative) mg/dL Urine Ketones (Negative) mg/dL Urine Blood (Negative) Urine Nitrite (Negative) Urine Bilirubin (Negative) Urine Urobilinogen (Up TO 0.2) EU/dL Ur Leukocyte Esterase (Negative) Urine RBC (0-2) Urine WBC (0-5) HPF Ur Epithelial Cells (Negative) HPF Urine Crystals (Negative) HPF Urine Bacteria (Negative) HPF Urine Casts (Negative) LPF Urine Mucus (Negative) Urine Other (Negative) Ur Culture Indicated? Urine Glucose (Negative) mg/dL Range/Units 09/28/18 09/28/18 18:40 20:00 WBC (4.4-10.8) k/cumm RBC (4.50-6.00) m/cumm Hgb (13.5-17.5) g/dL Hct (40.0-50.0) % MCV (80-95) fL MCH (27.0-33.0) pg MCHC (32.0-36.0) g/dL RDW (11.8-14.1) % Plt Count (130-400) x1000/uL MPV (8.0-11.0) fL Immature Gran % Neutrophils % Band Neutrophils % % Lymphocytes % Atypical Lymphs % Monocytes % Eosinophils % Basophils % Metamyelocytes % % Myelocytes % % Absolute Neutrophils (1.2-6.7) k/cumm Absolute Lymphocytes (1.2-3.4) k/cumm Absolute Monocytes (0.11-0.7) k/cumm Absolute Eosinophils (0.0-0.7) k/cumm Absolute Basophils (0.0-0.2) k/cumm Differential Comment RBC Morphology Polychromasia Hypochromasia Sodium (136-145) mmol/L Potassium (3.5-5.1) mmol/L Chloride (98-107) mmol/L Carbon Dioxide (21.0-32.0) mmol/L Anion Gap (3-11) mmol/L BUN (7-18) mg/dL Creatinine (0.70-1.30) mg/dL Estimated GFR/1.73 m2 (mL/min/1.73m2) Glucose (70-100) mg/dL Lactate (0.6-1.4) mmol/l 1.2 Calcium (8.5-10.1) mg/dL Magnesium (1.8-2.4) mg/dL Total Bilirubin (0.2-1.0) mg/dL AST (15-37) U/L ALT (12-78) U/L Alkaline Phosphatase (46-116) U/L Troponin I (0.00-0.06) ng/mL Total Protein (6.4-8.2) g/dL Albumin (3.4-5.0) g/dL Urine Color (Yellow) Yellow Urine Clarity (Clear) Clear Urine pH (5-8) 6.0 Ur Specific [place] (1.005-1.025) 1.010 Urine Protein (Negative) mg/dL 30 H Urine Ketones (Negative) mg/dL Negative Urine Blood (Negative) Negative Urine Nitrite (Negative) Negative Urine Bilirubin (Negative) Negative Urine Urobilinogen (Up TO 0.2) EU/dL 0.2 Ur Leukocyte Esterase (Negative) Negative Urine RBC (0-2) Negative Urine WBC (0-5) HPF 0-2 Ur Epithelial Cells (Negative) HPF Rare Urine Crystals (Negative) HPF Negative Urine Bacteria (Negative) HPF Rare Urine Casts (Negative) LPF 0-2 hyaline Urine Mucus (Negative) Trace Urine Other (Negative) Rare renal Ur Culture Indicated? No Urine Glucose (Negative) mg/dL Negative ECG Data Attestation: I personally reviewed and interpreted this ECG (s) as follows: Interpretation: Rate of 69, sinus, ectopic ventricular couplets. No acute ST elevation or depression. QTc 441. QRS 90 HPI General Mode of arrival: EMS. Date/Time Provider Initiated Documentation: 09/28/18 16:22. Limitations to Documentation: no limitations. Information obtained by: patient. HPI Narrative: Patient is a 67-year-old male with history of AML, diabetes, with recent hospital admission last week for neutropenic fever and pneumonia who presents with dizziness and hypotension upon standing in shower at home today. Patient states he was standing in the shower today when he states everything got black. He states he had not yet started the water and was only walking into the shower. He states he sat down and his dizziness persisted for another 30 minutes and then resolved. He states his daughter checked his blood pressure which was 80s/40s. He states his blood pressure is usually 120s to 130s/70s. He states since he was discharged last week he had improved without any fevers. He states he took a 3-day regimen of Augmentin for his pneumonia which finished yesterday. He states he developed diarrhea with 6-8 episodes of watery and loose brown stools yesterday and 4 episodes today. He denies any fever, nausea, vomiting, chest pain, shortness of breath, coughing, urinary symptoms or headache. Patient finished his chemo consolidation September 04 and states he is followed at [facility] for this. Related Data Home Medications Medication Instructions Recorded Confirmed aspirin [Aspir-81] 81 mg PO DAILY tab 11/13/12 09/28/18 cholecalciferol (vitamin D3) 1,000 unit PO BID 11/13/12 09/28/18 mometasone 1 bruno TOPICAL PRN PRN #45 gm 11/13/12 09/28/18 naproxen sodium [Aleve] 220 mg PO Q12H PRN 09/23/14 09/28/18 loperamide 2 mg PO QID PRN #30 tab-cap 07/21/15 09/28/18 cyanocobalamin (vitamin B-12) 1,000 mcg IJ 4w #3 vial 12/31/16 09/22/18 omeprazole 40 mg PO DAILY #90 tab-cap 11/10/17 09/28/18 probenecid 500 mg PO BID #180 tab-cap 11/10/17 09/28/18 triamcinolone acetonide 0.1 % 1 applic TP BID #30 gm 11/28/17 09/22/18 topical ointment white petrolatum 41 % topical 1 applic TP Q8H #99 gm 11/28/17 09/22/18 ointment acyclovir 400 mg tablet 400 mg PO BID tab 05/11/18 09/28/18 ascorbic acid (vitamin C) 1,000 mg 1,000 mg PO BID tab 05/11/18 09/28/18 tablet,extended release pen needle, diabetic 31 gauge x #30 each 05/11/18 07/03/1805/30 insulin lispro 100) 100 unit/mL See Rx Instructions SC AC #15 ml 05/15/18 09/28/18 subcutaneous pen sertraline 100 mg tablet 100 mg PO DAILY 05/15/18 09/28/18 blood sugar diagnostic #400 strip 05/25/18 07/03/18 lancets 28 gauge #400 each 05/25/18 07/03/18 insulin detemir U-100 100 unit/mL See Rx Instructions SUB-Q 06/22/18 09/28/18 (3 mL) subcutaneous pen DIRECTED ml metoprolol succinate 100 mg 100 mg PO DAILY 06/22/18 09/28/18 capsule sprinkle, ext. release 24 hr amlodipine 10 mg tablet 10 mg PO DAILY 06/23/18 09/28/18 furosemide 20 mg tablet 20 mg PO DAILY PRN 06/23/18 09/28/18 lisinopril 40 mg tablet 40 mg PO DAILY 06/23/18 09/28/18 gabapentin 300 mg capsule See Rx Instructions PO BID #360 07/08/18 09/28/18 tab-cap atorvastatin 80 mg tablet 80 mg PO DAILY 08/26/18 09/28/18 fluconazole 200 mg tablet 200 mg PO DAILY 08/31/18 09/28/18 levofloxacin 750 mg tablet 750 mg PO DAILY 09/11/18 09/28/18 nystatin 500,000 unit BC QID 10 Days #200 ml 09/20/18 09/28/18 amoxicillin-pot clavulanate 1 tab PO BID #5 tab 09/25/18 09/28/18 Previous Rx's Medication Instructions Recorded cyanocobalamin (vitamin B-12) 1,000 mcg IJ 4w #3 vial 12/31/16 omeprazole 40 mg PO DAILY #90 tab-cap 11/10/17 probenecid 500 mg PO BID #180 tab-cap 11/10/17 triamcinolone acetonide 0.1 % 1 applic TP BID #30 gm 11/28/17 topical ointment white petrolatum 41 % topical 1 applic TP Q8H #99 gm 11/28/17 ointment insulin lispro 100) 100 unit/mL See Rx Instructions SC AC #15 ml 05/15/18 subcutaneous pen blood sugar diagnostic #400 strip 05/25/18 lancets 28 gauge #400 each 05/25/18 gabapentin 300 mg capsule See Rx Instructions PO BID #360 07/08/18 tab-cap nystatin 500,000 unit BC QID 10 Days #200 ml 09/20/18 amoxicillin-pot clavulanate 1 tab PO BID #5 tab 09/25/18 Allergies Allergy/AdvReac Type Severity Reaction Status Date / Time oxycodone HCl [From Percocet] Allergy Intermediate hives Verified 09/22/18 16:09 sulfamethoxazole Allergy Intermediate hives Verified 09/22/18 16:09 [From Bactrim] trimethoprim [From Bactrim] Allergy Intermediate hives Verified 09/22/18 16:09 hydromorphone HCl Allergy Unknown rash Verified 09/22/18 16:09 [From Dilaudid] amoxicillin trihydrate AdvReac Intermediate C diff Verified 09/22/18 16:09 [From Augmentin] colitis codeine AdvReac Intermediate heart Verified 09/22/18 16:09 racing, N,V potassium clavulanate AdvReac Intermediate C diff Verified 09/22/18 16:09 [From Augmentin] colitis amiloride AdvReac Unknown increased Verified 09/22/18 16:09 K and decreased NA General Stated Complaint: Dizzy/Sync WES: 2 Review of Systems Review of Systems All systems reviewed & are unremarkable except as noted in HPI and below Constitutional Reports as per HPI, Denies chills and Denies fever(s) Eyes Denies blurry vision ENT Reports dizziness, Denies sore throat and Denies throat swelling Cardiovascular Denies chest pain and Denies dyspnea Respiratory Denies cough and Denies dyspnea Gastrointestinal Denies abdominal pain, Denies diarrhea and Denies vomiting Genitourinary Denies hematuria and Denies dysuria Musculoskeletal Denies back pain and Denies numbness Integumentary/Breasts Denies lesions and Denies rash Neurologic Reports dizziness, Denies focal weakness and Denies numbness Allergic/Immunologic Denies throat swelling COUNT INCLUDES THE [facility] Medical History AML (acute myeloid leukemia) (Acute) Benign neoplasm of colon (Inactive 04/04/14) Cervical radiculopathy (Chronic 01/27/15) Cervical spinal stenosis (Chronic 02/08/15) Disease related peripheral neuropathy (Chronic 01/14/13) Disorder of vitamin B12 (Chronic 01/14/13) Essential hypertension (Chronic 11/13/12) Gait abnormality (Chronic 11/13/12) HTN (hypertension) Hyperlipidemia (Chronic 11/13/12) Idiopathic gout (Chronic 12/16/14) Microalbuminuria (Chronic 09/23/14) Mitral valve insufficiency (Chronic 01/15/16) Mixed anxiety and depressive disorder (Chronic 11/13/12) Sensorineural hearing loss, asymmetrical (Chronic 11/13/12) Spinal stenosis Spinal stenosis of lumbar region (Chronic 11/13/12) Type 2 diabetes mellitus Type 2 diabetes mellitus with complication, with long-term current use of insulin (Chronic) Surgical History Anterior Lumbar interbody fusion (07/16/17) Colonoscopy - IV Sedation (04/04/14) H/O arthrodesis (Acute 02/15/15) H/O laminectomy (Acute Unknown) H/O vein stripping (Acute ~07/2006) S/P ACL repair (Acute ~02/1992) Family History Mother Dementia Father Heart disease Gout Tongue cancer Grandmother Heart disease Other Diabetes Rheumatoid arthritis Social History Smoking/Tobacco Use Status: Never Alcohol Intake: current Alcohol Intake frequency: holidays/special occasions only Drug use: Never Substance use type: does not use Adopted: No Number of Children: 1 current occupation: Counselor substance abuse Pets and animals: No What type of physical activity do you participate in: none Seatbelt use: always Working smoke detector in home: Yes Carbon monox detector in home: Yes Do you feel safe at home: Yes Do you feel safe in your relationship?: Yes Exam Const General: cooperative, healthy appearing and no acute distress HENMT Head: normal to inspection Ears: hearing grossly normal bilaterally, external ears normal and TM's normal bilaterally General nose exam: external nose normal Face and sinus: normal facial exam Mouth: oral mucosae normal Throat: posterior oropharynx normal, uvula midline, no peritonsillar masses, no postnasal drainage and other (posterior pharynx lesion significantly healed) Eyes General: appearance normal, both eyes and all related structures Pupils: PERRL EOM: EOM intact bilaterally Neck Neck: normal visual inspection and No submandibular swelling Lymphatic: no lymphadenopathy noted Chest Chest: normal inspection of the chest and no tenderness Resp Effort & Inspection: normal respiratory effort and able to speak in complete sentences Auscultation: clear to auscultation bilaterally Cardio Rate: regular rate Rhythm: regular rhythm GI Inspection: normal to inspection Palpation: soft, not firm, not rigid and nontender Auscultation: normal bowel sounds Male General Exam: Yes normal external exam Back/Spine/Pelvis Thoracic/Lumbar Spine: thoracic and lumbar spine normal to inspection Pelvis: no pain with anterior-posterior compression Skin General skin exam: no rashes or lesions noted Neuro General: alert, awake and oriented x3 Cranial Nerves: CN's II-XI intact bilaterally Cognition: normal cognition Speech: speech normal Motor: muscle tone normal throughout and strength 5/5 throughout Sensory Exam: no sensory deficits noted Extrem General: normal to inspection, full ROM, normal capillary refill, no calf tenderness bilaterally and no edema Psych Appearance: grossly normal Mental Status: mental status grossly normal Speech and Movement: speech and movement normal Affect: normal affect Course Vital Signs Temperature 97.2 F L 09/28/18 16:20 Pulse 72 09/28/18 16:20 Respiratory Rate 16 09/28/18 16:20 Blood Pressure 104/72 09/28/18 16:20 Pulse Oximetry 98 09/28/18 16:20 Temperature 97.2 F L 09/28/18 16:20 Temperature Source Temporal Artery Scan 09/28/18 16:20 Pulse 72 09/28/18 16:20 Respiratory Rate 16 09/28/18 16:20 Blood Pressure 104/72 09/28/18 16:20 Blood Pressure Position Supine 09/28/18 16:20 Pulse Oximetry 98 09/28/18 16:20 Oxygen Delivery Method Room Air 09/28/18 16:20 Oxygen Flow Rate 0 09/28/18 16:20
--- NOTE | 2018-09-28 17:32 | DI.VRAD_ITS ---
EXAM: XR Chest, 2 Views EXAM DATE/TIME: 09/28/2018 4:34 PM CLINICAL HISTORY: 67 years old, male; Other: Dizziness, hypotension, R/O acute disease TECHNIQUE: Imaging protocol: XR of the chest, 2 views. COMPARISON: SC XR CHEST 2V PA LATERAL 09/22/2018 4:59 PM FINDINGS: Lungs: Unremarkable. No consolidation. Pleural space: Unremarkable. No pleural effusion. No pneumothorax. Heart/Mediastinum: Unremarkable. No cardiomegaly. Bones/joints: Degenerative changes of the thoracic spine without acute osseous abnormality. Several old left lateral rib fractures are present. Other findings: Lower cervical plate and screws are identified. IMPRESSION: No evidence of active pulmonary disease. Dictated and Authenticated by: James Ramirez MD. Ordering:DREW Cerda MD
[2018-09-28 17:37] LABS: Lactate-non-spesis 1.8 mmol/l (0.6-1.4)
[2018-09-28 17:44] LABS: HCT 25.9 % (40.0-50.0); HGB 8.5 g/dL (13.5-17.5); Mean Corp. HGB Concentration 32.8 g/dL (32.0-36.0); Mean Corpuscular Hemoglobin 31.1 pg (27.0-33.0); Mean Corpuscular Volume 94.9 fL (80-95); Mean Platelet Volume 9.7 fL (8.0-11.0); Platelet Count 117 x1000/uL (130-400); RBC 2.73 m/cumm (4.50-6.00); RBC Distribution Width 13.2 % (11.8-14.1); White Blood Cell Count 7.27 k/cumm (4.4-10.8)
[2018-09-28] MEDS: Normal Saline 500 ML IV (17:49)
[2018-09-28 18:01] LABS: ALT 39 U/L (12-78); AST 14 U/L (15-37); Albumin 3.4 g/dL (3.4-5.0); Alkaline Phosphatase 125 U/L (46-116); Anion Gap 9.6 mmol/L (3-11); BUN 27 mg/dL (7-18); Bilirubin, Total 0.2 mg/dL (0.2-1.0); CO2 26.4 mmol/L (21.0-32.0); CREATININE 1.56 mg/dL (0.70-1.30); Calcium 9.3 mg/dL (8.5-10.1); Chloride 102 mmol/L (98-107); Estimated GFR 44.48 (mL/min/1.73m2); Glucose 184 mg/dL (70-100); Magnesium 1.7 mg/dL (1.8-2.4); Potassium 4.2 mmol/L (3.5-5.1); Sodium 138 mmol/L (136-145); Total Protein 7.8 g/dL (6.4-8.2)
[2018-09-28 18:02] LABS: Troponin I < 0.05 ng/mL (0.00-0.06)
[2018-09-28 18:09] LABS: Absolute Neutrophil Count 4.36 k/cumm (1.2-6.7)
[2018-09-28 18:10] LABS: Absolute Monocyte Count 1.67 k/cumm (0.11-0.7); Atypical Lymphocytes % 1
[2018-09-28 18:11] LABS: Diff Comment Manual Differential; Hypochromasia 1+; Polychromasia Present
[2018-09-28 18:47] LABS: Bilirubin Negative (Negative); Blood Negative (Negative); Clarity Clear (Clear); Glucose Negative (Negative); Ketones Negative (Negative); Leukocyte Esterase Negative (Negative); Nitrite Negative (Negative); Urobilinogen 0.2 EU/dL (Up TO 0.2)
[2018-09-28 19:09] LABS: Bacteria Rare HPF (Negative); C & S Indicated? No; Casts 0-2 Hyaline LPF (Negative); Crystals Negative HPF (Negative); Epithelial Cells Rare HPF (Negative); Mucus Trace (Negative); Other Cells Rare Renal (Negative); RBC Negative (0-2); WBC 0-2 HPF (0-5)
[2018-09-28 20:06] LABS: Lactate-non-spesis 1.2 mmol/l (0.6-1.4)
== END 2018-09-28 20:30 | disposition home or self-care (01) ==
PROVIDERS: Emergency Provider Physician Assistant; PCP Nurse Practitioner Family
DX: R42 Dizziness and giddiness (principal); C92.00 Acute myeloblastic leukemia, not having achieved remission; E11.319 Type 2 diabetes mellitus with unspecified diabetic retinopathy without macular edema; I10 Essential (primary) hypertension; I25.2 Old myocardial infarction; Z92.21 Personal history of antineoplastic chemotherapy
CPT/HCPCS: 36415; 80053; 87040; 93005; 96360; 99285; 71046; 81003; 81015; 83605; 83735; 84484; 85025; 93010

== ENCOUNTER 2018-09-29 11:35 | Outpatient (CLI) | payer MEDICARE, BC, SELFPAY | END 2018-09-29 11:55 | PROVIDERS: PCP Nurse Practitioner Family; Visit Provider Internal Medicine Hematology & Oncology | DX: C92.01 Acute myeloblastic leukemia, in remission (principal) | CPT/HCPCS: 36415; 86850; 86900; 86901 ==

== ENCOUNTER 2018-10-06 10:35 | Outpatient (CLI) | payer MEDICARE, BC, SELFPAY ==
[2018-10-06 10:54] LABS: Absolute Basophil Count 0.01 k/cumm (0.0-0.2); Absolute Lymphocyte Count 0.89 k/cumm (1.2-3.4); Absolute Monocyte Count 1.37 k/cumm (0.11-0.7); Absolute Neutrophil Count 4.54 k/cumm (1.2-6.7); Basophils % 0.1; HCT 28.3 % (40.0-50.0); HGB 8.9 g/dL (13.5-17.5); Immature Grans % 1.4; Lymphocytes % 12.9; Mean Corp. HGB Concentration 31.4 g/dL (32.0-36.0); Mean Corpuscular Hemoglobin 31.4 pg (27.0-33.0); Mean Platelet Volume 9.1 fL (8.0-11.0); Monocytes % 19.8; Neutrophils % 65.8; Platelet Count 448 x1000/uL (130-400); RBC 2.83 m/cumm (4.50-6.00); RBC Distribution Width 14.4 % (11.8-14.1); White Blood Cell Count 6.91 k/cumm (4.4-10.8)
== END 2018-10-06 10:55 ==
PROVIDERS: PCP Nurse Practitioner Family; Visit Provider Internal Medicine Hematology & Oncology
DX: C92.01 Acute myeloblastic leukemia, in remission (principal)
CPT/HCPCS: 36415; 86900; 86901; 85025

== ENCOUNTER 2018-11-09 01:24 | Outpatient (RCR) | payer MEDICARE, BC, SELFPAY ==
[2018-11-06] MEDS: Normal Saline Flush 10 ML SYR IVP (10:45)
[2018-11-06] MEDS: Normal Saline 1,000 ML 999 ML IV (11:00)
[2018-11-06 11:03] LABS: Absolute Basophil Count 0.02 k/cumm (0.0-0.2); Absolute Lymphocyte Count 0.24 k/cumm (1.2-3.4); Absolute Neutrophil Count 1.72 k/cumm (1.2-6.7); Eosinophils % 4.8; HCT 29.7 % (40.0-50.0); HGB 9.8 g/dL (13.5-17.5); Lymphocytes % 11.5; Mean Corpuscular Hemoglobin 32.8 pg (27.0-33.0); Mean Corpuscular Volume 99.3 fL (80-95); Mean Platelet Volume 9.2 fL (8.0-11.0); Neutrophils % 82.7; Platelet Count 142 x1000/uL (130-400); RBC 2.99 m/cumm (4.50-6.00); RBC Distribution Width 15.3 % (11.8-14.1); White Blood Cell Count 2.08 k/cumm (4.4-10.8)
[2018-11-09] MEDS: Normal Saline 1,000 ML 1000 ML IV (08:40)
[2018-11-09] MEDS: Normal Saline Flush 10 ML SYR IVP (08:49)
[2018-11-09 08:50] LABS: Absolute Eosinophil Count 0.01 k/cumm (0.0-0.7); HCT 28.2 % (40.0-50.0); HGB 9.3 g/dL (13.5-17.5); Mean Corpuscular Hemoglobin 32.6 pg (27.0-33.0); Mean Corpuscular Volume 98.9 fL (80-95); Mean Platelet Volume 9.8 fL (8.0-11.0); RBC 2.85 m/cumm (4.50-6.00); RBC Distribution Width 15.2 % (11.8-14.1)
[2018-11-09 09:21] LABS: Platelet Count 61 x1000/uL (130-400); White Blood Cell Count 0.45 k/cumm (4.4-10.8)
[2018-11-09 09:22] LABS: Absolute Basophil Count 0.03 k/cumm (0.0-0.2); Absolute Lymphocyte Count 0.28 k/cumm (1.2-3.4); Absolute Neutrophil Count 0.13 k/cumm (1.2-6.7)
[2018-11-09 09:23] LABS: Atypical Lymphocytes % 2; Diff Comment Manual Differential; RBC Morphology Normal
== END 2018-11-14 23:59 | disposition home or self-care (01) ==
LOC: INF 01:24
PROVIDERS: PCP Nurse Practitioner Family; Visit Provider Internal Medicine Hematology & Oncology
DX: C92.00 Acute myeloblastic leukemia, not having achieved remission (principal)
CPT/HCPCS: 36415; 86900; 86901; 96360; 96361; 85025

== ENCOUNTER 2018-11-23 00:41 | Outpatient (RCR) | payer MEDICARE, BC, SELFPAY ==
[2018-11-17] MEDS: Normal Saline 1,000 ML 1000 ML IV (09:25)
[2018-11-17 09:49] LABS: HCT 28.1 % (40.0-50.0); HGB 9.6 g/dL (13.5-17.5); Mean Corp. HGB Concentration 34.2 g/dL (32.0-36.0); Mean Corpuscular Hemoglobin 32.4 pg (27.0-33.0); Mean Corpuscular Volume 94.9 fL (80-95); Mean Platelet Volume 10.5 fL (8.0-11.0); RBC 2.96 m/cumm (4.50-6.00); RBC Distribution Width 14.2 % (11.8-14.1)
[2018-11-17 10:18] LABS: Absolute Eosinophil Count 0.01 k/cumm (0.0-0.7); Absolute Lymphocyte Count 0.22 k/cumm (1.2-3.4); Atypical Lymphocytes % 6
[2018-11-17 10:25] LABS: Absolute Neutrophil Count 0.01 k/cumm (1.2-6.7)
[2018-11-17 10:26] LABS: Platelet Count 18 x1000/uL (130-400); White Blood Cell Count 0.34 k/cumm (4.4-10.8)
[2018-11-17 10:27] LABS: Diff Comment Manual Differential; RBC Morphology Normal
[2018-11-17] MEDS: Normal Saline Flush 10 ML SYR IVP (10:53)
[2018-11-18 09:24] VITALS: BP 151/80; PULSE 81; RESP 18; TEMP 36.3; O2SAT 99
[2018-11-18 09:49] VITALS: BP 133/71; PULSE 76; RESP 18; TEMP 36.7; O2SAT 100
[2018-11-18 10:10] VITALS: BP 122/67; PULSE 91; RESP 18; TEMP 36.6; O2SAT 100
== END 2018-12-14 23:59 | disposition home or self-care (01) ==
LOC: INF 00:41
PROVIDERS: PCP Nurse Practitioner Family; Visit Provider Internal Medicine Hematology & Oncology
DX: C92.01 Acute myeloblastic leukemia, in remission (principal)
CPT/HCPCS: 36415; 36430; 86850; 86900; 86901; 96360; 85025; P9035

== ENCOUNTER 2018-11-28 16:10 | Emergency (ER) | payer MEDICARE, BC, SELFPAY ==
[2018-11-28] VITALS (44 sets, daily range): BP systolic 98–123; BP diastolic 54–75; PULSE 68–145; RESP 2–27; TEMP 36.7–37; O2SAT 88–94
--- NOTE | 2018-11-28 16:41 | DI.RAD_ITS ---
SYMPTOM/DIAGNOSIS: SOB PA AND LATERAL CHEST: Diffuse patchy densities are noted, most prominent throughout the right lung. These findings could represent pulmonary edema versus pneumonia. There is a small bilateral pleural effusion. There is no pneumothorax. The heart is not enlarged. Hardware in the cervical spine is only partially visualized. IMPRESSION: Findings concerning for a right asymmetric pulmonary edema versus pneumonia. Small bilateral pleural effusions are evident. These findings should be correlated with the patient's clinical presentation and physical findings.
[2018-11-28] MEDS: Furosemide 40 MG/4 ML VIAL IVP (17:05)
[2018-11-28 17:18] LABS: Abs Immature Grans 0.23 k/cumm (0.0-0.09); Absolute Basophil Count 0.02 k/cumm (0.0-0.2); Absolute Lymphocyte Count 0.92 k/cumm (1.2-3.4); Absolute Monocyte Count 2.28 k/cumm (0.11-0.7); Absolute Neutrophil Count 7.34 k/cumm (1.2-6.7); Basophils % 0.2; HCT 25.7 % (40.0-50.0); HGB 8.4 g/dL (13.5-17.5); Immature Grans % 2.1; Lymphocytes % 8.5; Mean Corp. HGB Concentration 32.7 g/dL (32.0-36.0); Mean Corpuscular Hemoglobin 32.1 pg (27.0-33.0); Mean Corpuscular Volume 98.1 fL (80-95); Monocytes % 21.1; Neutrophils % 68.1; Platelet Count 278 x1000/uL (130-400); RBC 2.62 m/cumm (4.50-6.00); RBC Distribution Width 15.4 % (11.8-14.1); White Blood Cell Count 10.79 k/cumm (4.4-10.8)
[2018-11-28 17:32] LABS: INR 1.1 (0.9-1.1); PTT Activated 29.8 sec (21.0-31.4); Prothrombin Time 10.9 sec (9.3-11.0)
[2018-11-28 17:34] LABS: ALT 50 U/L (16-63); AST 24 U/L (15-37); Albumin 2.9 g/dL (3.4-5.0); Alkaline Phosphatase 101 U/L (46-116); Anion Gap 9.7 mmol/L (3-11); BUN 35 mg/dL (7-18); Bilirubin, Total 0.3 mg/dL (0.2-1.0); CO2 27.3 mmol/L (21.0-32.0); CREATININE 1.56 mg/dL (0.70-1.30); Calcium 8.8 mg/dL (8.5-10.1); Chloride 100 mmol/L (98-107); Estimated GFR 44.35 (mL/min/1.73m2); Glucose 261 mg/dL (70-100); Magnesium 1.7 mg/dL (1.8-2.4); NT-proBNP 7295 pg/mL; Potassium 4.5 mmol/L (3.5-5.1); Sodium 137 mmol/L (136-145); Total Protein 7.4 g/dL (6.4-8.2)
[2018-11-28 17:37] LABS: Troponin I 0.56 ng/mL (0.00-0.06)
[2018-11-28 17:41] LABS: Diff Comment Diff Reviewed
[2018-11-28 17:42] LABS: Macrocytosis 1+
--- NOTE | 2018-11-28 18:13 | DI.VRAD_ITS ---
EXAM: XR Chest, 2 Views EXAM DATE/TIME: 11/28/2018 4:45 PM CLINICAL HISTORY: 68 years old, male; Other: SOB TECHNIQUE: Imaging protocol: XR of the chest Views: 2 views. COMPARISON: CR XR CHEST 2V PA LATERAL 09/28/2018 5:06 PM FINDINGS: Lungs: There diffuse patchy opacities predominantly throughout the right lung Field, concerning for asymmetric pulmonary edema versus pneumonia. Pleural space: There are small bilateral pleural effusions. No pneumothorax. Heart/Mediastinum:. No cardiomegaly. Bones/joints: Unremarkable. Cervical spine hardware is partially visualized. IMPRESSION: Findings concerning for right asymmetric pulmonary edema versus pneumonia. Small bilateral pleural effusions. Correlate with clinical presentation and physical exam findings. Dictated and Authenticated by: Noemí Neil MD. Ordering:AARON aWtters MD
--- NOTE | 2018-11-28 18:26 | W.ED.GENAD ---
Discharge Plan Discharge Details Chief Complaint: SOB Primary Care Provider: Sapna Ornelas ED Provider: Janene Lundy Home Meds and New Rx's Prescriptions: No Action triamcinolone acetonide 0.1 % ointment 1 applic TP BID Qty: 30 RF: 0 Aquaphor Healing 41 % ointment 1 applic TP Q8H Qty: 99 RF: 1 sertraline 100 mg tablet 100 mg PO DAILY RF: 0 aspirin [Aspir-81] 81 MG tablet,delayed release (DR/EC) 81 mg PO DAILY RF: 0 mometasone 45 GM cream 1 bruno Topical PRN PRNQty: 45 RF: 0 cholecalciferol (vitamin D3) 1,000 UNIT tablet 1,000 unit PO BID RF: 0 naproxen sodium [Aleve] 220 MG capsule 220 mg PO Q12H PRN RF: 0 loperamide 2 MG tablet 2 mg PO QID PRNQty: 30 RF: 1 cyanocobalamin (vitamin B-12) 1,000 MCG/1 ML solution 1,000 mcg IJ 4w Qty: 3 RF: 3 omeprazole 40 MG capsule,delayed release(DR/EC) 40 mg PO DAILY Qty: 90 RF: 3 probenecid 500 MG tablet 500 mg PO BID Qty: 180 RF: 3 (DME) pen needle, diabetic [Lite Touch Insulin Pen [place]] 31 gauge x 3/16 needle See Dose Instructions .ROUTE .MEDSUPPLY Qty: 30 RF: 0 ascorbic acid (vitamin C) [Vitamin C] 1,000 mg tablet extended release 1,000 mg PO BID RF: 0 (DME) lancets [FreeStyle Lancets] 28 gauge misc 1 ea Miscellaneous TID Qty: 400 RF: 3 (DME) FreeStyle Lite Strips strip 1 ea Miscellaneous TID Qty: 400 RF: 3 metoprolol succinate 100 mg cap,sprinkle,ER 24hr dose pack 100 mg PO DAILY RF: 0 Levemir FlexTouch U-100 Insuln 100 unit/mL (3 mL) insulin pen See Rx Instructions Sub-Q DIRECTED RF: 3 lisinopril 40 mg tablet 40 mg PO DAILY RF: 0 gabapentin 300 mg capsule See Rx Instructions PO BID Qty: 360 RF: 3 amlodipine 5 mg tablet 5 mg PO DAILY RF: 0 acetaminophen [Acetaminophen Pain Relief] 500 mg tablet 1,000 mg PO Q4H PRNRF: 0 magnesium oxide 400 mg magnesium tablet 400 mg PO DAILY RF: 0 furosemide [Lasix] 20 mg tablet 20 mg PO DAILY PRNRF: 0 fluconazole 200 mg tablet 200 mg PO DAILY RF: 0 acyclovir 400 mg tablet 400 mg PO BID RF: 0 Nzloffpox-Fcdqztxxj-Xq-Mag-Sim See Rx Instructions .ROUTE .COMPLEX RF: 0 saliva substitute combo no.9 Mouthwash 5 ml MM TID PRNRF: 0 lisinopril 20 mg tablet 20 mg PO DAILY RF: 0 nitroglycerin 0.4 mg tablet, sublingual 0.4 mg SL Q5M PRNRF: 0 insulin lispro 100 unit/mL insulin pen See Rx Instructions SC TID RF: 0 atorvastatin 80 mg tablet 80 mg PO DAILY Qty: 90 RF: 3 lorazepam [Ativan] 0.5 mg tablet 0.5 mg PO DAILY PRNRF: 0 amoxicillin-pot clavulanate 875-125 mg Tablet 1 tab PO BID Qty: 5 RF: 0 Discharge Data Discharge Date/Time-TO BE ENTERED AT DEPARTURE: 11/28/18 21:11 Medical Decision Making <GABRIELE Hopper - Last Filed: 11/28/18 20:38> This is a very pleasant 68-year-old man who presents with a history of AML. Patient presents for leg weakness in conjunction with shortness of breath which developed last evening and persisted today. Patient denies any dizziness, headache, fever, nausea, vomiting. Patient does report mild pressure in the chest and shortness of breath. Patient was discharged from [facility] 2 days ago. Patient ultimately had received his chemo treatment and then developed acute fluid in the lungs as well as pneumonia. Patient was treated appropriately and discharged 2 days ago. Denies abdominal pain. Patient has been eating and drinking without difficulty. Patient does report overall no significant malaise but does report weakness. Initial evaluation discussed with my attending. Labs entered. Patient's troponin is elevated 0.56. Patient EKG does show mild ST depression, 1 mm in limb leads V4 and V5 and V6. This case was discussed at length and managed in conjunction with Dr. Johnson. After initial troponin was reported she spoke with [facility] call center coordinator. Cardiology called back. Discussed the case with Dr. Dockery who reviewed patient's previous chart. Discussed patient's previous labs, previous EKGs with a similar pattern. Likely this could be demand ischemia however the possibility of acute respiratory failure given valve prolapse worsening is a possibility. Pneumonia remains in the differential. Patient is compliant with his antibiotics previously prescribed. Taking doxycycline as well as cephalosporin by mouth. In the hospital was receiving cefepime and vancomycin. Patient does report mild diarrhea as a side effect but has been tolerant to the medications. Per [facility] cardiology current concern is developing acute respiratory failure. Will accept the patient accepting doctor is Dr. Garza, patient will be admitted to the [facility] directly. Discussed medications currently provided, she is comfortable with medications provided. My attending would also like addition of vancomycin and cefepime and IV at this time. Attending recommend DuoNeb as a trial. Patient did report having neb while admitted at [facility] with some improvement per family. <Zaida Johnson, - Last Filed: 11/29/18 09:27> Patient also seen and evaluated by me. Case was discussed and treatment plan reviewed and formulated in conjunction with GABRIELE Lundy. Pt did not appear in any acute respiratory distress but had O2 sat 88% on 4L initially and his baseline is low 90s on RA. He improved to mid 90s on 6L. He was speaking in full sentences and had fairly good air movement. He was noted to have R sided asymmetric chf vs pneumonia. He was given antibiotics, neb and diuretics and admitted to improvement of symptoms in the ED. He has had prior h/o fungal pneumonia so with his CXR findings, this could be on the differential. Trop 0.56, BNP 7295, Lactate 2.4. Suspect elevated trop to be demand ischemia but acs on the differential due to ekg changes, however, ekg not significantly different from recent EKG per [facility]. EKG on arrival noted a rate of 71, sinus with [address] depression in 1, V4, V5 and V6 with less than 1 mm depression in aVL and a questionable [address] elevation in V3. This does appear new compared to previous EKG here but not significantly different per [facility] old ekg. Repeat EKG noted a rate of 73, sinus with no change in ST depression seen in 1, aVL, V4 through V6. Some improvement in ST elevation seen in V3. HPI <GABRIELE Hopper - Last Filed: 11/28/18 20:38> General Date/Time Provider Initiated Documentation: 11/28/18 16:17. HPI Narrative: Patient presents for onset of lower leg bilateral weakness in conjunction with shortness of breath which began last evening and persist through the day today. Patient recently was discharged from [facility] 2 days ago after having onset of pulmonary effusions, CHF and pneumonia resulting status post chemotherapy treatment he received last week. Patient was treated with antibiotics as well as Lasix. Patient was discharged on antibiotics which he is been compliant with resulting in mild diarrhea. Patient has not been taking Lasix in the last 2 days but has been urinating normally. Patient eating and drinking normally. Patient denies headache, dizziness, chest pain. He does report a pressure with breathing. Patient denies back pain, neck or jaw pain. No associated pain in the upper extremity. Patient denies measured fever or chills. Patient is accompanied medical history including AML and is immunocompromise due to chemotherapy treatment. Had his last treatment approximately 9 days ago. Patient reports similar shortness of breath recently experienced. Related Data Home Medications Medication Instructions Recorded Confirmed aspirin [Aspir-81] 81 mg PO DAILY tab 11/13/12 11/28/18 cholecalciferol (vitamin D3) 1,000 unit PO BID 11/13/12 11/28/18 mometasone 1 bruno TOPICAL PRN PRN #45 gm 11/13/12 11/28/18 naproxen sodium [Aleve] 220 mg PO Q12H PRN 09/23/14 11/28/18 loperamide 2 mg PO QID PRN #30 tab-cap 07/21/15 11/28/18 cyanocobalamin (vitamin B-12) 1,000 mcg IJ 4w #3 vial 12/31/16 11/28/18 omeprazole 40 mg PO DAILY #90 tab-cap 11/10/17 11/28/18 probenecid 500 mg PO BID #180 tab-cap 11/10/17 11/28/18 triamcinolone acetonide 0.1 % 1 applic TP BID #30 gm 11/28/17 11/28/18 topical ointment white petrolatum 41 % topical 1 applic TP Q8H #99 gm 11/28/17 11/28/18 ointment ascorbic acid (vitamin C) 1,000 mg 1,000 mg PO BID tab 05/11/18 11/28/18 tablet,extended release pen needle, diabetic 31 gauge x #30 each 05/11/18 07/03/1805/30 sertraline 100 mg tablet 100 mg PO DAILY 05/15/18 11/28/18 blood sugar diagnostic #400 strip 05/25/18 07/03/18 lancets 28 gauge #400 each 05/25/18 07/03/18 insulin detemir U-100 100 unit/mL See Rx Instructions SUB-Q 06/22/18 11/28/18 (3 mL) subcutaneous pen DIRECTED ml metoprolol succinate 100 mg 100 mg PO DAILY 06/22/18 11/28/18 capsule sprinkle, ext. release 24 hr lisinopril 40 mg tablet 40 mg PO DAILY 06/23/18 11/28/18 gabapentin 300 mg capsule See Rx Instructions PO BID #360 07/08/18 11/28/18 tab-cap amoxicillin-pot clavulanate 1 tab PO BID #5 tab 09/25/18 09/28/18 amlodipine 5 mg tablet 5 mg PO DAILY 10/08/18 acetaminophen 500 mg tablet 1,000 mg PO Q4H PRN tab 11/02/18 furosemide 20 mg tablet 20 mg PO DAILY PRN 11/02/18 11/28/18 magnesium oxide 400 mg PO DAILY 11/02/18 11/28/18 Spameornr-Lzqerdtrb-Go-Mag-Sim See Rx Instructions .ROUTE .COMPLEX 11/06/18 acyclovir 400 mg tablet 400 mg PO BID 11/06/18 fluconazole 200 mg tablet 200 mg PO DAILY 11/06/18 11/28/18 insulin lispro 100 unit/mL See Rx Instructions SC TID 11/06/18 11/28/18 subcutaneous pen lisinopril 20 mg tablet 20 mg PO DAILY 11/06/18 11/28/18 nitroglycerin 0.4 mg sublingual 0.4 mg SL Q5M PRN 11/06/18 11/28/18 tablet saliva substitute combo no.9 5 ml MM TID PRN ml 11/06/18 11/28/18 atorvastatin 80 mg tablet 80 mg PO DAILY #90 tab-cap 11/11/18 11/28/18 lorazepam 0.5 mg tablet 0.5 mg PO DAILY PRN 11/19/18 11/28/18 Previous Rx's Medication Instructions Recorded cyanocobalamin (vitamin B-12) 1,000 mcg IJ 4w #3 vial 12/31/16 omeprazole 40 mg PO DAILY #90 tab-cap 11/10/17 probenecid 500 mg PO BID #180 tab-cap 11/10/17 triamcinolone acetonide 0.1 % 1 applic TP BID #30 gm 11/28/17 topical ointment white petrolatum 41 % topical 1 applic TP Q8H #99 gm 11/28/17 ointment blood sugar diagnostic #400 strip 05/25/18 lancets 28 gauge #400 each 05/25/18 gabapentin 300 mg capsule See Rx Instructions PO BID #360 07/08/18 tab-cap amoxicillin-pot clavulanate 1 tab PO BID #5 tab 09/25/18 atorvastatin 80 mg tablet 80 mg PO DAILY #90 tab-cap 11/11/18 Allergies Allergy/AdvReac Type Severity Reaction Status Date / Time oxycodone HCl [From Percocet] Allergy Intermediate hives Verified 11/28/18 17:37 sulfamethoxazole Allergy Intermediate hives Verified 11/28/18 17:37 [From Bactrim] trimethoprim [From Bactrim] Allergy Intermediate hives Verified 11/28/18 17:37 hydromorphone HCl Allergy Unknown rash Verified 11/28/18 17:37 [From Dilaudid] amoxicillin trihydrate AdvReac Intermediate C diff Verified 11/28/18 17:37 [From Augmentin] colitis codeine AdvReac Intermediate heart Verified 11/28/18 17:37 racing, N,V potassium clavulanate AdvReac Intermediate C diff Verified 11/28/18 17:37 [From Augmentin] colitis amiloride AdvReac Unknown increased Verified 11/28/18 17:37 K and decreased NA General Stated Complaint: SOB WES: 3 Review of Systems <GABRIELE Hopper - Last Filed: 11/28/18 20:38> Review of Systems Narrative: CONSTITUTIONAL: The patient denies fevers, chills. Weakness present EYES: Denies vision changes, blurry vision, or eye pain. ENT: Denies hearing changes, tinnitus, vertigo, gingival bleeding, sore throat, neck swelling. CARDIAC: Denies chest pain, palpitations, irregular heartbeats. Denies lower extremity edema. Chest pressure RESPIRATORY: Minimal cough. No hemoptysis. Short of breath present GASTROINTESTINAL: Denies abdominal pain. Mild diarrhea. vomitting, or rectal bleeding. GENITOURINARY: Denies dysuria, hematuria, nocturia or frequency of urination. MUSCULOSKELETAL: Denies Joint pain, gait changes, deformities. NEUROLOGIC: Denies headaches, dizziness, syncope. Denies focal weakness. Denies numbness. INTEGUMENT: Denies rashes. PSYCHIATRIC: Denies behavior changes. Denies anxiety or depression. ENDOCRINOLOGY: Denies heat or cold intolerance. Denies fatigue. HEMATOLOGY: Denies easy bleeding or bruising. PSYCHIATRY: Denies depression, agitation or anxiety. ALLERGIC/IMMUNOLOGIC: Denies urticaria, lip or tongue swelling. [facility] <GABRIELE Hopper - Last Filed: 11/28/18 20:38> Medical History AML (acute myeloid leukemia) (Acute) Benign neoplasm of colon (Inactive 04/04/14) tubular adenoma 03/31/14 Cervical radiculopathy (Chronic 01/27/15) R hand, arm pain Cervical spinal stenosis (Chronic 02/08/15) 02/2015 C3-T1 post foraminotomies/arthrodesis [facility] Dr [place] Disease related peripheral neuropathy (Chronic 01/14/13) Disorder of vitamin B12 (Chronic 01/14/13) Essential hypertension (Chronic 11/13/12) dyazide added 04/23, reaction hyperkalemia/hyponatremia, changed to HCTZ 12/21 PCP manages Gait abnormality (Chronic 11/13/12) related to spinal stenosis HTN (hypertension) Hyperlipidemia (Chronic 11/13/12) PCP manages Idiopathic gout (Chronic 12/16/14) probenicid Rx Microalbuminuria (Chronic 09/23/14) Mitral valve insufficiency (Chronic 01/15/16) 12/2015 echo: moderate mitral valve regurgitation --> repeat echo 1-2 years Mixed anxiety and depressive disorder (Chronic 11/13/12) Sensorineural hearing loss, asymmetrical (Chronic 11/13/12) [place] Spinal stenosis Spinal stenosis of lumbar region (Chronic 11/13/12) 02/2011 L345 laminectomy; fusion L5-S1 Type 2 diabetes mellitus Type 2 diabetes mellitus with complication, with long-term current use of insulin (Chronic) Dx'ed [address] Dr[address] Red[place] [facility] Endo Surgical History Anterior Lumbar interbody fusion (07/16/17) done at [place], [place]. done w/ anterior and posterior fixation. Colonoscopy - IV Sedation (04/04/14) w/ polypectomy Dr Wren H/O arthrodesis (Acute 02/15/15) C3-T1 foraminotoies, arthrodesis and autologous bone transplant H/O laminectomy (Acute Unknown) L5-S1 fusion H/O vein stripping (Acute ~07/2006) Right leg S/P ACL repair (Acute ~02/1992) Family History Mother Dementia Father Heart disease Gout Tongue cancer Grandmother Heart disease Other Diabetes Rheumatoid arthritis Social History Smoking/Tobacco Use Status: Never Alcohol Intake: current Alcohol Intake frequency: holidays/special occasions only Drug use: Never Substance use type: does not use Adopted: No Number of Children: 1 current occupation: Counselor substance abuse Pets and animals: No What type of physical activity do you participate in: none Seatbelt use: always Working smoke detector in home: Yes Carbon monox detector in home: Yes Do you feel safe at home: Yes Do you feel safe in your relationship?: Yes Exam <GABRIELE Hopper - Last Filed: 11/28/18 20:38> Narrative Exam Narrative: CONST: In no apparent distress. Well hydrated. Alert and alert. HENMT: Head nomocephalic, normal to inspection. Atraumatic. Hearing grossly normal. External ear canal no erythema or swelling. TM normal bilaterally. Nose normal to inspection. No rhinnorhea. Normal facial exam. Oral mucosa normal. Tounge normal. Dentition normal. Normal posterior oropharynx. Uvula midline. EYES: General normal appearance. Alignment normal. Eyelids normal. Conjunctiva normal. Sclera normal. PERRL. NECK: Normal visual inspection. FROM. No lymphadenopathy. Trachea midline. No Midline tenderness. CHEST: Normal insepection of the chest. RESP: Normal respiratory effort. Speaking full sentences. No cough. No wheezing. No retractions. Breath sound equal and present bilaterally. Crackles present worse on the right than the left worse in the lower lung. No obvious rhonchi. CARDIO: No JVD. Normal PMI. Regular Rate. Regular Rhythm. Normal peripheral pulses. Murmur present. No distal edema GI: Normal inspection of abdomen. No distension. Soft. Nontender. Bowel sounds present in all 4 quadrants. No rebound. No gaurding. MUSCULOSKELETAL: Normal Gait. FROM of all extremities. Distal neurovascularly intact. Sensation intact distally. SKIN: Normal. Dry. No rashes. NEURO: Alert and awake. Speech clear. PSYCH: Normal affect. Cooperative. Course <GABRIELE Hopper - Last Filed: 11/28/18 20:38> Vital Signs Vital signs: Vital Signs Respiratory Rate 16 11/28/18 16:15 Temperature 37 C 11/28/18 17:59 Temperature Source Temporal Artery Scan 11/28/18 17:59 Pulse 145 H 11/28/18 18:02 Pulse Rhythm Regular 11/28/18 17:59 Pulse Strength Normal 11/28/18 17:59 Pulse 85 11/28/18 18:02 Respiratory Rate 24 11/28/18 18:02 Respiratory Effort 11/28/18 17:59 Respiratory Depth Normal 11/28/18 17:59 Respiratory Pattern Normal 11/28/18 17:59 Blood Pressure 98/75 L 11/28/18 18:02 Blood Pressure Mean 80 11/28/18 18:02 Blood Pressure Position Supine 11/28/18 17:59 Pulse Oximetry 91 L 11/28/18 17:59 Oxygen Delivery Method Nasal Cannula 11/28/18 17:59 Oxygen Flow Rate 4 11/28/18 16:17 Pain Level 0 11/28/18 16:17 Lab/Test Results Lab/Test Results: 11/28/18 17:48 Blood Blood Culture - Pending 11/28/18 17:48 Blood Blood Culture - Pending Laboratory Tests Range/Units 11/28/18 11/28/18 11/28/18 17:00 17:00 17:00 WBC (4.4-10.8) k/cumm 10.79 RBC (4.50-6.00) m/cumm 2.62 L Hgb (13.5-17.5) g/dL 8.4 L Hct (40.0-50.0) % 25.7 L MCV (80-95) fL 98.1 H MCH (27.0-33.0) pg 32.1 MCHC (32.0-36.0) g/dL 32.7 RDW (11.8-14.1) % 15.4 H Plt Count (130-400) x1000/uL 278 D MPV (8.0-11.0) fL 10.0 Immature Gran % 2.1 Neutrophils % 68.1 Lymphocytes % 8.5 Monocytes % 21.1 Eosinophils % 0.0 Basophils % 0.2 Absolute Neutrophils (1.2-6.7) k/cumm 7.34 H Absolute Lymphocytes (1.2-3.4) k/cumm 0.92 L Absolute Monocytes (0.11-0.7) k/cumm 2.28 H Absolute Eosinophils (0.0-0.7) k/cumm 0.00 Absolute Basophils (0.0-0.2) k/cumm 0.02 Differential Comment Diff reviewed RBC Morphology See below Macrocytosis 1+ PT (9.3-11.0) sec 10.9 INR (0.9-1.1) 1.1 APTT (21.0-31.4) sec 29.8 Sodium (136-145) mmol/L 137 Potassium (3.5-5.1) mmol/L 4.5 Chloride (98-107) mmol/L 100 Carbon Dioxide (21.0-32.0) mmol/L 27.3 Anion Gap (3-11) mmol/L 9.7 BUN (7-18) mg/dL 35 H Creatinine (0.70-1.30) mg/dL 1.56 H Estimated GFR/1.73 m2 (mL/min/1.73m2) 44.35 Glucose (70-100) mg/dL 261 H Calcium (8.5-10.1) mg/dL 8.8 Magnesium (1.8-2.4) mg/dL 1.7 L Total Bilirubin (0.2-1.0) mg/dL 0.3 AST (15-37) U/L 24 ALT (16-63) U/L 50 Alkaline Phosphatase (46-116) U/L 101 Troponin I (0.00-0.06) ng/mL 0.56 H* NT-Pro-B Natriuret Pep ( - 299) pg/mL 7295 H Total Protein (6.4-8.2) g/dL 7.4 Albumin (3.4-5.0) g/dL 2.9 L
[2018-11-28 18:31] LABS: Lactate 2.5 mmol/L (0.6-1.4)
--- NOTE | 2018-11-28 19:36 | NUR.NOTE ---
Nursing Note: finger stick glucose 221, patient eating , denies pain or sob, family with him.
[2018-11-28] MEDS: CEFEPIME 2 GM in Normal Saline 100 ML IVPB (20:03)
[2018-11-28] MEDS: Albuterol/Ipratropium 3 ML UPD VIAL UPD (20:26)
[2018-11-28] MEDS: VANCOMYCIN 1,250 MG in Normal Saline 250 ML 166.6666 MG IVPB (20:39)
== END 2018-11-28 21:11 ==
LOC: ER 18:42
PROVIDERS: Physician Assistant; Emergency Provider Physician Assistant; PCP Nurse Practitioner Family
DX: R07.89 Other chest pain (principal); C92.00 Acute myeloblastic leukemia, not having achieved remission; Z79.899 Other long term (current) drug therapy; R09.02 Hypoxemia; E11.9 Type 2 diabetes mellitus without complications; Z79.4 Long term (current) use of insulin; I10 Essential (primary) hypertension; R94.31 Abnormal electrocardiogram [ECG] [EKG]
CPT/HCPCS: 36415; 36416; 80053; 82962; 86850; 86900; 86901; 87040; 93005; 94640; 96365; 96367; 96375; 99285; 71046; 83605; 83735; 83880; 84484; 85025; 85610; 85730; 93010; J1940; J7620

== ENCOUNTER 2019-01-14 09:55 | Outpatient (RCR) | payer MEDICARE, BC, SELFPAY | END 2019-01-14 23:59 | disposition home or self-care (01) | LOC: CR 09:55 | PROVIDERS: PCP Nurse Practitioner Family; Visit Provider Family Medicine | DX: Z51.89 Encounter for other specified aftercare (principal) ==

== ENCOUNTER 2019-02-10 11:42 | Outpatient (RCR) | payer MEDICARE, BC, SELFPAY | END 2019-02-13 23:59 | disposition home or self-care (01) | LOC: CR 11:42 | PROVIDERS: PCP Nurse Practitioner Family; Visit Provider Family Medicine | DX: I34.0 Nonrheumatic mitral (valve) insufficiency (principal); Z95.828 Presence of other vascular implants and grafts; Z51.89 Encounter for other specified aftercare | CPT/HCPCS: S9472 ==

== ENCOUNTER 2019-03-15 10:47 | Outpatient (RCR) | payer MEDICARE, BC, SELFPAY | END 2019-03-16 23:59 | disposition home or self-care (01) | LOC: CR 10:47 | PROVIDERS: PCP Nurse Practitioner Family; Visit Provider Family Medicine | DX: I67.1 Cerebral aneurysm, nonruptured (principal); Z95.828 Presence of other vascular implants and grafts; Z51.89 Encounter for other specified aftercare | CPT/HCPCS: S9472 ==

== ENCOUNTER 2019-04-16 10:00 | Outpatient (RCR) | payer MEDICARE, BC, SELFPAY | END 2019-04-16 23:59 | disposition home or self-care (01) | LOC: CR 10:00 | PROVIDERS: PCP Nurse Practitioner Family; Visit Provider Family Medicine | DX: I34.0 Nonrheumatic mitral (valve) insufficiency (principal); Z95.828 Presence of other vascular implants and grafts; Z51.89 Encounter for other specified aftercare | CPT/HCPCS: S9472 ==

== ENCOUNTER → 2019-04-19 14:05 | Outpatient (BNVA) | payer MEDICARE, BC, SELFPAY | PROVIDERS: PCP Nurse Practitioner Family; Visit Provider Nurse Practitioner Adult Health | DX: G56.03 Carpal tunnel syndrome, bilateral upper limbs (principal); G56.23 Lesion of ulnar nerve, bilateral upper limbs; M54.2 Cervicalgia; G89.29 Other chronic pain | CPT/HCPCS: 95886; 95911; 99203; 99214 ==

== ENCOUNTER 2019-04-30 03:49 | Outpatient (CLI) | payer MEDICARE, BC, SELFPAY ==
--- NOTE | 2019-04-30 13:50 | DI.MRI_ITS ---
EXAM: MR CERVICAL SPINE WO CLINICAL HISTORY: BILAT UPPER EXTREMITY PARASTHESIAS, ? CERVICAL STENOSIS. TECHNIQUE: Multiplanar multisequence MRI was performed. COMPARISON: CT brain neck CTA from 05/24/2018 FINDINGS: There is hyperintense signal on the T2 weighted images within the spinal cord from C2 through C4. Th ere is focal enlargement of the cord at the C4 level. There is no evidence of tonsillar ectopia. Postsurgical changes are seen in the cervical spine from C3 through T1. There is straightening of th e spinal cord from C3 through T1. Exaggeration of the lordosis is seen at the C2-C3 level. Artifact from the orthopedic hardware is seen throughout the spinal cord. This does limit the examination. No definite central spinal canal stenosis is seen from C3-C4 through C7-T1. There does appear to be mild narrowing of the AP diameter of the central spinal canal at C2-C3. Mild neural foraminal narrow ing is seen bilaterally at C2-C3 and C3-C4. There also appears to be mild bilateral neural foraminal narrowing at C4-C5. There are endplate osteophytes seen in the upper cervical spine. IMPRESSION: 1. Abnormal signal seen in the upper spinal cord as described above. Differential considerations inc lude posttraumatic syrinx, myelitis, myelomalacia, or central spinal cord syndrome. Neoplasm cannot be entirely excluded. Postcontrast MRI should be considered for further evaluation. 2. Postsurgical changes from C3 through T1. 3. Multilevel neural foraminal narrowing and central spinal canal narrowing as described above.
== END 2019-04-30 04:09 ==
PROVIDERS: PCP Nurse Practitioner Family; Visit Provider Physician Assistant Medical
DX: R20.2 Paresthesia of skin (principal); M48.02 Spinal stenosis, cervical region; Z98.890 Other specified postprocedural states
CPT/HCPCS: 72141

== ENCOUNTER 2019-05-05 10:00 | Outpatient (RCR) | payer MEDICARE, BC, SELFPAY | END 2019-05-15 23:59 | disposition home or self-care (01) | LOC: CR 10:00 | PROVIDERS: PCP Nurse Practitioner Family; Visit Provider Family Medicine | DX: I34.0 Nonrheumatic mitral (valve) insufficiency (principal); Z95.828 Presence of other vascular implants and grafts; Z51.89 Encounter for other specified aftercare | CPT/HCPCS: S9472 ==

== ENCOUNTER 2019-05-24 13:00 | Outpatient (RCR) | payer SELFPAY ==
--- NOTE | 2019-05-19 14:02 | PR3E_ITS ---
68 year old male who started the Cardiac Rehab maintenance phase after completing the Phase 2 program s/p mitral clip in April 2019. PMH: NSTEMI, CAD, HLD, non-rheumatic mitral regurg, mitral clip (12/03/18), spinal fusion (uses cane), foot drop, osteoarthritis, DM II, depression, AML First day of maintenance program was 05/19/19- Resting BP 128/51, HR 55 bpm. Weight 201 lbs. Tolerated 40 minutes of exercise on the treadmill, NuStep, stationary bike and UBE. HR w/ exercise ranged 61-71 bpm. LEIGH RPE ratings appropriate at 12-16 per activity (physical limitations of lower extremeties make ambulating difficult). Mr. Roach plans to continue exercising regularly with our program, three days per week. We will continue to monitor, guide, and progress him as tolerated.
== END 2019-06-15 23:59 | disposition home or self-care (01) ==
LOC: CR 13:00
PROVIDERS: PCP Nurse Practitioner Family; Visit Provider Family Medicine
DX: I34.0 Nonrheumatic mitral (valve) insufficiency (principal); Z95.828 Presence of other vascular implants and grafts; Z51.89 Encounter for other specified aftercare

== ENCOUNTER 2019-07-21 02:23 | Outpatient (CLI) | payer MEDICARE, BC, SELFPAY ==
[2019-07-21 13:06] LABS: Abs Immature Grans 0.01 k/cumm (0.0-0.09); Absolute Basophil Count 0.02 k/cumm (0.0-0.2); Absolute Eosinophil Count 0.26 k/cumm (0.0-0.7); Absolute Lymphocyte Count 0.58 k/cumm (1.2-3.4); Absolute Monocyte Count 0.28 k/cumm (0.11-0.7); Absolute Neutrophil Count 3.47 k/cumm (1.2-6.7); Basophils % 0.4; Eosinophils % 5.6; HCT 35.5 % (40.0-50.0); HGB 11.5 g/dL (13.5-17.5); Immature Grans % 0.2 %; Lymphocytes % 12.6; Mean Corp. HGB Concentration 32.4 g/dL (32.0-36.0); Mean Corpuscular Hemoglobin 29.8 pg (27.0-33.0); Mean Platelet Volume 10.4 fL (8.0-11.0); Monocytes % 6.1; Neutrophils % 75.1; Platelet Count 314 x1000/uL (130-400); RBC 3.86 m/cumm (4.50-6.00); RBC Distribution Width 19.8 % (11.8-14.1); White Blood Cell Count 4.62 k/cumm (4.4-10.8)
[2019-07-21 13:45] LABS: Uric Acid 7.4 mg/dL (3.5-7.2)
== END 2019-07-21 02:43 ==
PROVIDERS: PCP Nurse Practitioner Family; Visit Provider Internal Medicine Hematology & Oncology
DX: C92.01 Acute myeloblastic leukemia, in remission (principal); M10.9 Gout, unspecified
CPT/HCPCS: 36415; 86900; 86901; 84550; 85025

== ENCOUNTER 2019-07-23 02:25 | Outpatient (CLI) | payer MEDICARE, BC, SELFPAY ==
[2019-07-23 09:36] LABS: Abs Immature Grans 0.01 k/cumm (0.0-0.09); Absolute Basophil Count 0.04 k/cumm (0.0-0.2); Absolute Eosinophil Count 0.37 k/cumm (0.0-0.7); Absolute Neutrophil Count 3.95 k/cumm (1.2-6.7); Basophils % 0.7; Eosinophils % 6.6; HCT 33.9 % (40.0-50.0); Immature Grans % 0.2 %; Lymphocytes % 12.6; Mean Corp. HGB Concentration 32.4 g/dL (32.0-36.0); Mean Corpuscular Hemoglobin 29.9 pg (27.0-33.0); Mean Corpuscular Volume 92.1 fL (80-95); Mean Platelet Volume 9.1 fL (8.0-11.0); Neutrophils % 70.9; Platelet Count 305 x1000/uL (130-400); RBC 3.68 m/cumm (4.50-6.00); RBC Distribution Width 19.9 % (11.8-14.1); White Blood Cell Count 5.57 k/cumm (4.4-10.8)
[2019-07-23 14:10] LABS: ALT 190 U/L (16-63); AST 272 U/L (15-37); Albumin 3.7 g/dL (3.4-5.0); Alkaline Phosphatase 365 U/L (46-116); Anion Gap 9.4 mmol/L (3-11); BUN 28 mg/dL (7-18); Bilirubin, Total 0.8 mg/dL (0.2-1.0); CO2 29.6 mmol/L (21.0-32.0); CREATININE 1.51 mg/dL (0.70-1.30); Calcium 9.7 mg/dL (8.5-10.1); Chloride 99 mmol/L (98-107); Estimated GFR 46.05 (mL/min/1.73m2); Glucose 156 mg/dL (74-106); Potassium 4.9 mmol/L (3.5-5.1); Sodium 138 mmol/L (136-145); Total Protein 7.7 g/dL (6.4-8.2)
== END 2019-07-23 02:45 ==
PROVIDERS: PCP Nurse Practitioner Family; Visit Provider Internal Medicine Hematology & Oncology
DX: C92.01 Acute myeloblastic leukemia, in remission (principal)
CPT/HCPCS: 36415; 80053; 86900; 86901; 85025

== ENCOUNTER 2019-07-26 02:14 | Outpatient (CLI) | payer MEDICARE, BC, SELFPAY ==
[2019-07-26 13:32] LABS: ALT 207 U/L (16-63); AST 199 U/L (15-37); Albumin 4.1 g/dL (3.4-5.0); Alkaline Phosphatase 322 U/L (46-116); Anion Gap 11.6 mmol/L (3-11); BUN 47 mg/dL (7-18); Bilirubin, Total 0.6 mg/dL (0.2-1.0); CO2 28.4 mmol/L (21.0-32.0); CREATININE 1.59 mg/dL (0.70-1.30); Calcium 9.9 mg/dL (8.5-10.1); Chloride 98 mmol/L (98-107); Estimated GFR 43.38 (mL/min/1.73m2); Glucose 141 mg/dL (74-106); Sodium 138 mmol/L (136-145); Total Protein 8.1 g/dL (6.4-8.2)
== END 2019-07-26 02:34 ==
PROVIDERS: PCP Nurse Practitioner Family; Visit Provider Internal Medicine Hematology & Oncology
DX: C92.01 Acute myeloblastic leukemia, in remission (principal)
CPT/HCPCS: 36415; 80053

== ENCOUNTER 2019-08-02 02:31 | Outpatient (CLI) | payer MEDICARE, BC, SELFPAY ==
[2019-08-02 14:36] LABS: ALT 134 U/L (16-63); AST 52 U/L (15-37); Albumin 3.9 g/dL (3.4-5.0); Alkaline Phosphatase 228 U/L (46-116); Anion Gap 11.9 mmol/L (3-11); BUN 43 mg/dL (7-18); Bilirubin, Total 0.5 mg/dL (0.2-1.0); CO2 25.1 mmol/L (21.0-32.0); CREATININE 1.54 mg/dL (0.70-1.30); Calcium 9.2 mg/dL (8.5-10.1); Chloride 100 mmol/L (98-107); Estimated GFR 45.01 (mL/min/1.73m2); Glucose 98 mg/dL (74-106); Potassium 4.8 mmol/L (3.5-5.1); Sodium 137 mmol/L (136-145); Total Protein 7.4 g/dL (6.4-8.2)
== END 2019-08-02 02:51 ==
PROVIDERS: PCP Nurse Practitioner Family; Visit Provider Internal Medicine Hematology & Oncology
DX: C92.01 Acute myeloblastic leukemia, in remission (principal)
CPT/HCPCS: 36415; 80053

== ENCOUNTER 2019-08-05 03:52 | Outpatient (CLI) | payer MEDICARE, BC, SELFPAY ==
[2019-08-05 11:00] LABS: ALT 108 U/L (16-63); AST 43 U/L (15-37); Albumin 3.9 g/dL (3.4-5.0); Alkaline Phosphatase 210 U/L (46-116); Anion Gap 11.5 mmol/L (3-11); BUN 35 mg/dL (7-18); Bilirubin, Total 0.5 mg/dL (0.2-1.0); CO2 25.5 mmol/L (21.0-32.0); CREATININE 1.47 mg/dL (0.70-1.30); Calcium 8.9 mg/dL (8.5-10.1); Chloride 102 mmol/L (98-107); Glucose 120 mg/dL (74-106); Sodium 139 mmol/L (136-145); Total Protein 7.7 g/dL (6.4-8.2)
== END 2019-08-05 04:12 ==
PROVIDERS: PCP Nurse Practitioner Family; Visit Provider Internal Medicine Hematology & Oncology
DX: C92.01 Acute myeloblastic leukemia, in remission (principal)
CPT/HCPCS: 36415; 80053

== ENCOUNTER 2019-10-07 01:35 | Outpatient (CLI) | payer MEDICARE, BC, SELFPAY ==
[2019-10-07 11:46] LABS: Uric Acid 6.7 mg/dL (3.5-7.2)
[2019-10-07 11:50] LABS: ALT 105 U/L (16-63); AST 131 U/L (15-37); Albumin 3.5 g/dL (3.4-5.0); Alkaline Phosphatase 498 U/L (46-116); Anion Gap 12.9 mmol/L (3-11); BUN 28 mg/dL (7-18); Bilirubin, Total 1.7 mg/dL (0.2-1.0); CO2 25.1 mmol/L (21.0-32.0); CREATININE 1.52 mg/dL (0.70-1.30); Calcium 9.6 mg/dL (8.5-10.1); Chloride 99 mmol/L (98-107); Glucose 264 mg/dL (74-106); Potassium 4.8 mmol/L (3.5-5.1); Sodium 137 mmol/L (136-145); Total Protein 7.6 g/dL (6.4-8.2)
[2019-10-07 11:56] LABS: Hemoglobin A1C 8.4 % (3.8-5.6)
[2019-10-07 11:58] LABS: FREE T4 0.86 ng/dL (0.76-1.46)
== END 2019-10-07 01:55 ==
PROVIDERS: Internal Medicine Endocrinology, Diabetes & Metabolism; PCP Nurse Practitioner Family; Visit Provider Internal Medicine Hematology & Oncology
DX: M10.9 Gout, unspecified (principal); E11.40 Type 2 diabetes mellitus with diabetic neuropathy, unspecified; E03.9 Hypothyroidism, unspecified; C92.01 Acute myeloblastic leukemia, in remission
CPT/HCPCS: 36415; 80053; 83036; 84439; 84443; 84550

== ENCOUNTER 2019-10-08 16:23 | Outpatient (REF) | payer MEDICARE, BC, SELFPAY ==
[2019-10-08 21:33] LABS: COMMENT (LAB VIEW ONLY) 22.69 mg/dL
[2019-10-08 21:37] LABS: Microalb ug/mg Crea 720.1 ug/mg Cr
== END 2019-10-08 16:43 ==
LOC: LBN 16:23
PROVIDERS: PCP Nurse Practitioner Family; Visit Provider Internal Medicine Endocrinology, Diabetes & Metabolism
DX: E11.40 Type 2 diabetes mellitus with diabetic neuropathy, unspecified (principal)
CPT/HCPCS: 82040; 82043; 82565; 82570

== ENCOUNTER 2019-10-27 03:07 | Outpatient (CLI) | payer MEDICARE, BC, SELFPAY ==
[2019-10-27 13:08] LABS: Bilirubin Negative (Negative); Blood Negative (Negative); Clarity Clear (Clear); Glucose Negative (Negative); Ketones Negative (Negative); Leukocyte Esterase Negative (Negative); Nitrite Negative (Negative); Specific Gravity 1.015 (1.005-1.025); Urobilinogen 0.2 EU/dL (Up TO 0.2); pH 5.5 (5-8)
== END 2019-10-27 03:27 ==
PROVIDERS: PCP Nurse Practitioner Family; Visit Provider Nurse Practitioner Family
DX: R82.998 Other abnormal findings in urine (principal)
CPT/HCPCS: 81003

== ENCOUNTER 2019-12-03 02:45 | Outpatient (CLI) | payer MEDICARE, BC, SELFPAY ==
[2019-12-03 10:57] LABS: Abs Immature Grans 0.01 10^3/uL (0.0-0.06); Absolute Basophil Count 0.02 10^3/uL (0.0-0.2); Absolute Eosinophil Count 0.21 10^3/uL (0.0-0.7); Absolute Lymphocyte Count 0.78 10^3/uL (1.2-3.4); Absolute Neutrophil Count 3.18 10^3/uL (1.2-6.7); Basophils % 0.5; Eosinophils % 4.8; HCT 37.1 % (40.0-50.0); HGB 12.1 g/dL (13.5-17.5); Immature Grans % 0.2; Lymphocytes % 17.7; MCH 33.6 pg (27.0-33.0); MCHC 32.6 % (32.0-36.0); MCV 103.1 fL (80-95); MPV 9.1 fL (8.0-11.0); Monocytes % 4.5; Neutrophils % 72.3; Nucleated RBC 0 %; Platelet Count 213 10^3/uL (130-400); RDW 15.5 % (11.8-14.1); RDW-SD 58.9 fL
[2019-12-03 11:07] LABS: Diff Comment Agrees w/ Instrument; RBC Morphology Normal
[2019-12-03 11:14] LABS: Hemoglobin A1C 7.3 % (<5.7)
[2019-12-03 11:24] LABS: ALT 72 U/L (16-63); AST 51 U/L (15-37); Albumin 3.9 g/dL (3.4-5.0); Alkaline Phosphatase 189 U/L (46-116); Anion Gap 7.5 mmol/L (3-11); BUN 23 mg/dL (7-18); Bilirubin, Total 0.4 mg/dL (0.2-1.0); CO2 30.5 mmol/L (21.0-32.0); CREATININE 1.49 mg/dL (0.70-1.30); Calcium 9.8 mg/dL (8.5-10.1); Chloride 100 mmol/L (98-107); Estimated GFR 46.63 (mL/min/1.73m2); FREE T4 0.75 ng/dL (0.76-1.46); Glucose 175 mg/dL (74-106); Potassium 4.5 mmol/L (3.5-5.1); Sodium 138 mmol/L (136-145); TSH 1.74 uIU/mL (0.36-3.74); Total Protein 8.1 g/dL (6.4-8.2)
[2019-12-03 13:24] LABS: COMMENT (LAB VIEW ONLY) 24.48 mg/dL
[2019-12-03 13:25] LABS: Microalb ug/mg Crea 326.8 ug/mg Cr
== END 2019-12-03 03:05 ==
PROVIDERS: PCP Nurse Practitioner Family; Visit Provider Internal Medicine Hematology & Oncology
DX: E11.40 Type 2 diabetes mellitus with diabetic neuropathy, unspecified (principal); C92.01 Acute myeloblastic leukemia, in remission
CPT/HCPCS: 36415; 80053; 82043; 82570; 83036; 84439; 84443; 85025